=== PATIENT | male | born 1980 | race Caucasian/White ===

== ENCOUNTER 2016-08-06 20:12 | Inpatient (IN) | payer OTHER ==
[~2016-08-06] VITALS: Ht 185.4 cm; Wt 75.8 kg
[2016-08-06] VITALS (7 sets, daily range): BP systolic 91–153; BP diastolic 51–76; PULSE 46–58; RESP 17–20; TEMP 98; O2SAT 96–99
[~2016-08-06 20:12] MED LIST: ACETAMIN-HYDROcod 325-5 MG PO; RIVA15 PO; RIVA20 PO
[2016-08-06] MEDS ORDERED: SODIUM CHLOR 0.9% 1000 ML INJ 1,000 ML IV ONE (20:21)
[2016-08-06 20:33] LABS: AUTOMATED NEUTROPHIL # 11.1 TH/MM3 (1.8-7.7); BASOPHIL # 0.1 TH/MM3 (0-0.2); BASOPHIL % 0.6 % (0.0-2.0); EOSINOPHIL # 0.1 TH/MM3 (0-0.4); EOSINOPHIL % 0.8 % (0.0-4.0); HEMATOCRIT 42.6 % (39.0-51.0); HEMO FLAGS DIFF FINAL; LYMPH % 13.6 % (9.0-44.0); LYMPHOCYTE # 1.9 TH/MM3 (1.0-4.8); MEAN CELL VOLUME 83.6 FL (80.0-100.0); MEAN CORPUSCULAR HEMOGLOBIN 28.9 PG (27.0-34.0); MEAN CORPUSCULAR HGB CONC 34.5 % (32.0-36.0); MONO % 5.2 % (0.0-8.0); NEUT % 79.8 % (16.0-70.0); PLATELET COUNT 229 TH/MM3 (150-450); RED CELL DISTRIBUTION WIDTH 13.2 % (11.6-17.2); WHITE BLOOD COUNT 13.9 TH/MM3 (4.0-11.0)
[2016-08-06] MEDS ORDERED: IOHEXOL 350 MG/ML 10 ML VIAL (for RAD DIAG) IV ONE (20:36)
--- NOTE | 2016-08-06 20:36 | PD ---
HPI Chief Complaint: Stroke Alert Time Seen by Provider: 20:21 Travel History International Travel<30 days: No Contact w/Intl Traveler<30days: No Traveled to known affect area: No History of Present Illness HPI The patient is a 36 year old male who presents to the [facility] emergency department with a history of reportedly last being seen normal by his spouse at 7 AM prior to her coming to work. She reports that he drove her to work. She reports that he has been working excessive number of hours over the last 2 days and had not been sleeping except for a couple of hours over the last 48 hours. She reports that he then slept throughout all of the day according to her mom that was home briefly with him taking care of her children. The patient reported to his that he got up around 2:30 PM to go to the bathroom. He realized at that time that he had left upper and left lower extremity weakness. He fell to the floor. He has been on the ground since then. He was supposed to pick her up from work at 7 PM, however he never arrived. When she called to check on him, she noted that he had slurred speech and was asking for help. Ambulance services were called out to the patient's house, however he refused transport at that time stating to ambulance services that he was just intoxicated from drinking alcohol. The patient's then arrived home and assessed him (she is a nurse), and noted that he had left facial droop, left upper and left lower extremity weakness, and therefore she called ambulance services again as she was concerned that he had a stroke. The patient on arrival appears to be drowsy. The patient is however easily awakened and follows commands. The patient is able to provide all of his history. He denies drinking any alcohol today. The patient reports having a right-sided headache. The patient denies any recent fevers, cough congestion, neck pain, chest pain, shortness of breath, abdominal pain, vomiting, diarrhea, urinary symptoms. PFS Past Medical History Narrative Medical The patient's past medical history is significant for a DVT and pulmonary embolism last year. He was on an anticoagulant up until the end of last year. The patient receives his primary care through the [facility]. Hx Anticoagulant Therapy: Yes (XARELTO 15 MG PO BID @ 01/21/16 0900) Asthma: No Blood Disorders: No Cancer: No Cardiovascular Problems: No COPD: No Diabetes: No Endocrine: No Genitourinary: No Immune Disorder: No Neurologic: No Psychiatric: No Reproductive: No Respiratory: Yes (LUNG BIOPSY) Pneumonia: Yes Sleep Apnea: No Thyroid Disease: No Past Surgical History Narrative Surgical The patient's past surgical history is significant for right hip surgery. Joint Replacement: Yes (RIGHT HIP SURGERY) Social History Alcohol Use: Yes (occasional) Tobacco Use: Yes (1/2 PPD) Substance Use: No Allergies-Medications (Allergen,Severity, Reaction): Coded Allergies: Codeine (Verified Allergy, Intermediate, RASH, 01/21/16) Penicillin (Verified Allergy, Intermediate, RASH, 01/21/16) Reported Meds & Prescriptions Reported Meds & Active Scripts Active No Active Prescriptions or Reported Medications Review of Systems Except as stated in HPI: all other systems reviewed are Neg General / Constitutional: No: Fever Eyes: No: Visual changes HENT: Positive: Headaches, No: Rhinorrhea, Congestion, Neck Stiffness, Neck Pain Cardiovascular: No: Chest Pain or Discomfort Respiratory: No: Shortness of Breath Gastrointestinal: No: Abdominal Pain Genitourinary: No: Dysuria Musculoskeletal: No: Pain Skin: No Rash Neurologic: Positive: Weakness, Dizziness, Focal Abnormalities, Coordination Problem, Headache, Change in Mentation, Slurred Speech, Sensory Disturbance Psychiatric: No: Depression Endocrine: No: Polydipsia Hematologic/Lymphatic: No: Easy Bruising Physical Exam Narrative General: The patient is a well-developed well-nourished male in no acute distress. Head and Neck exam: Head is normocephalic atraumatic. Eyes: pupils are equal round and reactive to light. Nose: Midline septum with pink mucous membranes Mouth: Dentition is remarkable for multiple areas of decay of the lower dentition, upper prosthesis is in place. Moist mucus membranes. Posterior oropharynx is not erythematous. The patient is noted to have white patches on the soft and hard palate extending into the posterior oropharynx appears suspicious for thrush. No tonsillar hypertrophy. Uvula midline. Airway patent. Neck: No palpable lymphadenopathy. No nuchal rigidity. No thyromegaly. Cardiovascular: Regular rate and rhythm without murmurs, gallops, or rubs. Lungs: Clear to auscultation bilaterally. No wheezes, rhonchi, or rales. Abdomen: Soft, without tenderness to palpation in all 4 quadrants of the abdomen. No guarding, rebound, or rigidity. Normal bowel sounds are audible. Extremities: No clubbing, cyanosis, or edema. 2+ pulses in all 4 extremities. No calf tenderness on palpation. Back: No spinous process tenderness to palpation. No costovertebral angle tenderness to palpation. Neurologic Exam: The patient has a left-sided facial droop on examination, paralysis of the left upper and left lower extremity. The patient has diminished sensation reported in the left upper and left lower extremity. The patient has a rotatory nystagmus noted on examination. The patient has a gaze palsy on examination of the left eye specifically on lateral gaze to the left. The patient has no evidence of extinction or inattention to the left side. The patient has slightly slurred speech. The patient is however able to provide all of his history and although drowsy is easily arousable. The patient's strength is 5 over 5 in the right upper and right lower extremity. The patient is oriented to person, Lasix, time, and situation. Skin Exam: No rash noted. Intact skin that is warm and dry. Data Data Last Documented VS Vital Signs Date Time Temp Pulse Resp B/P Pulse Ox O2 Delivery O2 Flow Rate FiO2 08/06/16 22:00 96 Nasal Cannula 2.00 08/06/16 22:00 46 17 113/56 08/06/16 20:15 98.0 08/06/16 20:11 21 Orders Diet Npo (08/07/16 Breakfast) Activity Bed Rest (08/06/16 ) Electrocardiogram (08/06/16 ) I-Stat Creatinine (08/06/16 20:21) I-Stat Profile (08/06/16 20:21) Prothrombin Time / Inr (Pt) (08/06/16 20:21) Act Partial Throm Time (Ptt) (08/06/16 20:21) Complete Blood Count With Diff (08/06/16 20:21) Fibrinogen (08/06/16 20:21) Creatine Kinase (Cpk) (08/06/16 20:21) Troponin I (08/06/16 20:21) Ua Includes Microscopic (08/06/16 20:21) Drug Screen, Random Urine (08/06/16 20:21) Type And Screen (08/06/16 20:21) Ct Brain W/O Iv Contrast(Rout) (08/06/16 ) Cta Brain W Iv Contrast W 3d (08/06/16 20:21) Consult Neurology (08/06/16 ) Blood Glucose (08/06/16 20:21) Ecg Monitoring (08/06/16 20:21) Neuro Checks Q2HX12,Q4H (08/06/16 20:21) Nursing Bedside Swallow Assess .ONCE (08/06/16 20:21) Iv Access Insert/Monitor (08/06/16 20:21) NPO (08/06/16 20:21) Oximetry (08/06/16 20:21) Oxygen Administration (08/06/16 20:21) Sodium Chlor 0.9% 1000 Ml Inj (Ns 1000 M (08/06/16 20:21) Resp Oxygen Home C Titrat 1-4 L (08/06/16 20:21) Cath For Specimen (08/06/16 20:21) (Hub Use Only)Inp Phy Cons/Ref (08/06/16 ) Iohexol 350 Inj (Omnipaque 350 Inj) (08/06/16 20:36) Aspirin Supp (Aspirin Supp) (08/06/16 20:45) Cta Neck W Iv Contrast W 3d (08/06/16 ) Magnesium (Mg) (08/06/16 20:51) Mri Brain W/O Contrast (08/06/16 21:18) Alcohol (Ethanol) (08/06/16 20:12) Heparin-D5w Inj (Heparin-D5w Inj) (08/06/16 22:00) Cbc No Diff, Includes Plts (08/09/16 06:00) Act Partial Throm Time (Ptt) (08/07/16 21:59) Admit Order (Ed Use Only) (08/06/16 22:22) Labs Laboratory Tests Test 08/06/16 08/06/16 20:12 21:15 White Blood Count 13.9 TH/MM3 Red Blood Count 5.10 MIL/MM3 Hemoglobin 14.7 GM/DL Bedside Hemoglobin 15.3 G/DL Hematocrit 42.6 % Bedside Hematocrit 45.0 % Mean Corpuscular Volume 83.6 FL Mean Corpuscular Hemoglobin 28.9 PG Mean Corpuscular Hemoglobin 34.5 % Concent Red Cell Distribution Width 13.2 % Platelet Count 229 TH/MM3 Mean Platelet Volume 9.3 FL Neutrophils (%) (Auto) 79.8 % Lymphocytes (%) (Auto) 13.6 % Monocytes (%) (Auto) 5.2 % Eosinophils (%) (Auto) 0.8 % Basophils (%) (Auto) 0.6 % Neutrophils # (Auto) 11.1 TH/MM3 Lymphocytes # (Auto) 1.9 TH/MM3 Monocytes # (Auto) 0.7 TH/MM3 Eosinophils # (Auto) 0.1 TH/MM3 Basophils # (Auto) 0.1 TH/MM3 CBC Comment DIFF FINAL Differential Comment Prothrombin Time 12.0 SEC Prothromb Time International 1.1 RATIO Ratio Activated Partial 25.7 SEC Thromboplast Time Fibrinogen 230 mg/dL Bedside Sodium 143 MMOL/L Bedside Potassium 3.9 MMOL/L Bedside Chloride 105 MMOL/L Bedside Blood Urea Nitrogen 8 MG/DL Bedside Creatinine 0.8 MG/DL Bedside Glucose 106 MG/DL Magnesium Level 2.1 MG/DL Total Creatine Kinase 98 U/L Troponin I LESS THAN 0.02 NG/ML Ethyl Alcohol Level LESS THAN 3 MG/DL Blood Type A POSITIVE Antibody Screen NEGATIVE Blood Bank Comment Phosphorus Level 1.4 MG/DL Urine Color LIGHT-YELLOW Urine Turbidity CLEAR Urine pH 7.5 Urine Specific [place] 1.009 Urine Protein NEG mg/dL Urine Glucose (UA) NEG mg/dL Urine Ketones NEG mg/dL Urine Occult Blood NEG Urine Nitrite NEG Urine Bilirubin NEG Urine Urobilinogen LESS THAN 2.0 MG/DL Urine Leukocyte Esterase NEG Urine RBC LESS THAN 1 /hpf Urine WBC LESS THAN 1 /hpf Urine Squamous Epithelial <1 /hpf Cells Urine Opiates Screen NEG Urine Barbiturates Screen NEG Urine Amphetamines Screen NEG Urine Benzodiazepines Screen NEG Urine Cocaine Screen NEG Urine Cannabinoids Screen NEG MDM Medical Screen Exam Complete: Yes Emergency Medical Condition: Yes Medical Record Reviewed: Yes EKG Prior to Arrival: Yes Differential Diagnosis Ischemic stroke, versus intracranial hemorrhage, versus cervical artery dissection, versus intracranial tumor, versus brainstem tumor Narrative Course During the course of the patients emergency department visit, the patients history, examination, and differential diagnosis were reviewed with the patient. The patient had IV access obtained and blood work sent for analysis. The patient was placed on a automotive drivability technician with oximetry and blood pressure monitoring. The patient's blood sugar was reportedly prior to arrival noted to be 95 according to ambulance services. An i-STAT with creatinine was ordered. A stroke alert was called prior to arrival. The patient's i-STAT with creatinine reveals a sodium of 143, potassium 3.9, chloride 105, BUN 8, creatinine 0.8, glucose 106, hemoglobin 15.3. A CT scan of the brain without contrast, CTA of the brain, CTA of the neck has been ordered. Unfortunately, the patient arrives in the emergency department for evaluation after the acceptable timeframe for alteplase administration intravenously. In addition, the patient on arrival is present only within 5 minutes of the six-hour timeframe for endovascular thrombectomy. Therefore, if the patient is noted to have no evidence of intracranial hemorrhage, the patient will be given aspirin SC. This was discussed at length with the neurologist on-call, . Radiology studies were reviewed and remarkable for a ct scan of the brain was called to me as negative according to Dr. Islas at 8:35PM. An EKG was done which shows a sinus bradycardia rate of 47, incomplete right bundle branch block, no other acute ST segment changes, no evidence of ST segment elevation. T waves are inverted in V1. Laboratory studies otherwise revealed a white count of 13.9, hemoglobin 14.7, platelets 229 with neutrophils 79.8. Magnesium is 2.1. INR 1.1, PT 12, PTT 25.7, fibrinogen 230, urinalysis is unremarkable. Alcohol level less than 3, urine drug screen is negative. Radiologic studies were otherwise remarkable for a CTA of the brain that shows a small thrombus within the distal basilar artery measuring 7 x 4 mm otherwise unremarkable CTA. Regarding this thrombus, please see my physician communication section for details regarding physicians that I discussed this patient's case with. CTA of the neck shows a normal CTA of the carotids, no thrombus or aneurysm. There is a thrombus in the basilar artery. MRI of the brain shows that there is some very subtle restricted diffusion in the brainstem greater on the right consistent with acute infarction. The patient was given aspirin 300 mg SC. The patient was started on heparin per ischemic stroke protocol. The patients results were discussed with the patient, including the plan of care. I explained that further testing and/ or monitoring is indicated based on the patients history, examination, and/ or laboratory findings. Therefore, I recommended admission for additional evaluation. The patient expressed understanding and was agreeable with this plan. The patient was admitted to the hospital in critical condition and sent to a bed under the care of the outsole beveler. Critical Care Narrative Aggregate critical care time was 47 minutes. Time to perform other separately billable procedures was not included in the critical care time. My time did not include minutes spent treating any other patients simultaneously or on activities that did not directly contribute to the patient's treatment. The services I provided to this patient were to treat and/or prevent clinically significant deterioration that could result in: Respiratory failure, versus cardiovascular collapse, versus further progression of ischemic stroke I provided critical care services requiring my management, as noted below: Chart data review, documentation time, medication orders and management, vital sign assessments/reviewing monitor data, ordering and reviewing lab tests, ordering and interpreting/reviewing x-rays and diagnostic studies, care of the patient and discussion of the patient with the admitting physicians. Stroke Alert NIHSS NIH Stroke Scale Result: 15 NIHSS Time Completed: 20:23 Physician Communication Physician Communication I spoke to Dr. Soria, at 8:29 PM regarding this patient's case. Given the patient's onset of symptoms at approximately 2:30 PM, the patient does not meet criteria for intravenous administration of alteplase, or at this point endovascular thrombectomy as it has been 6 hours since symptom onset. He did agree with the plan to proceed with CTA of the brain and CTA of the neck. He agreed with the plan to start the patient on aspirin. He agreed with the plan for the patient to be admitted to the intensive care unit for close monitoring. At 2058 I received a call from , the radiologist on-call telling me that the patient had a 7 x 4 mm basilar artery thrombus. I then spoke to Dr. Soria at 9 PM regarding this finding. He recommended that I discuss this further with the interventional radiologist. I spoke to Dr. Knott, the interventional radiologist on-call, regarding this at 21:09. He reported that he will review the patient's images and call me back. At 21:14 he called back and reported that the patient Posterior Cerebral arteries are still patent due to collateral circulation. He reports that the case is difficult as the patient does have circulation and he is concerned that with thrombectomy he will have showering of thrombectomy particles with the procedure. He recommended an MRI without contrast to further evaluate the patient's current signs of stroke. Again, I spoke to Dr. Soria regarding this patient's case at 2124. He recommended that the patient be started on heparin. I recommended to him that he discussed the case further with the interventional radiologist to see if he also agrees with starting heparin. At [address] spoke to Dr. Soria again and he reports that Dr. Mccoy agrees with heparin be in started. He recommends that the patient be started on heparin per ischemic stroke protocol. This has been ordered. The patient's case was discussed with Dr. Christensen who did agree to admit the patient for further evaluation and treatment at this time. 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
--- NOTE | 2016-08-06 20:38 | RADRPT ---
EXAM DATE/TIME: 08/06/2016 20:21 CORRECTION Corrected on: August 06, 2016; [facility] COMPARISON: No previous studies available for comparison. INDICATIONS : Stroke alert; Left facial droop and left sided weakness. RADIATION DOSE: 39.86 CTDIvol (mGy) This report was called by Janel Potter at 8: 33 MEDICAL HISTORY : Non-responsive. SURGICAL HISTORY : Non-responsive. ENCOUNTER: Initial ACUITY: 1 day PAIN SCALE: Non-responsive LOCATION: cranial TECHNIQUE: Multiple contiguous axial images were obtained of the head. Using automated exposure control and adj ustment of the mA and/or kV according to patient size, radiation dose was kept as low as reasonably a chievable to obtain optimal diagnostic quality images. FINDINGS: CEREBRUM: The ventricles are normal for age. No evidence of midline shift, mass lesion, hemorrhage or acute in farction. No extra-axial fluid collections are seen. Minimal hyperdensity in the basilar artery. POSTERIOR FOSSA: The cerebellum and brainstem are intact. The 4th ventricle is midline. The cerebellopontine angle i s unremarkable. EXTRACRANIAL: The visualized portion of the orbits is intact. SKULL: The calvaria is intact. No evidence of skull fracture. CONCLUSION: Minimal high density in the basilar artery, otherwise unremarkable CT brain. CTA brain recommended. Elder Islas MD on August 06, 2016 at 20:28 Board Certified Radiologist. This report was verified electronically. Elder Islas MD on August 06, 2016 at 20:58 Board Certified Radiologist. This report was verified electronically.
[2016-08-06] MEDS ORDERED: ASPIRIN 300 MG SUPP RECTAL ONE (20:45)
[2016-08-06 20:52] LABS: APTT (PATIENT) 25.7 SEC (24.3-30.1); INTERNATIONAL NORMALIZED RATIO 1.1 RATIO
[2016-08-06 20:53] LABS: I-STAT POTASSIUM 3.9 MMOL/L (3.5-4.9); I-STAT SODIUM 143 MMOL/L (138-146)
[2016-08-06 20:58] LABS: CREATINE KINASE 98 U/L (39-308)
--- NOTE | 2016-08-06 20:58 | RADRPT ---
EXAM DATE/TIME: 08/06/2016 20:21 [facility] COMPARISON: No previous studies available for comparison. INDICATIONS : Stroke alert; left sided weakness. IV CONTRAST: 75 cc Omnipaque 350 (iohexol) IV ; Cumulative dose for multiple exams. RADIATION DOSE: 28.91 CTDIvol (mGy) MEDICAL HISTORY : Non-responsive. SURGICAL HISTORY : Non-responsive. ENCOUNTER: Initial ACUITY: 1 day PAIN SCALE: Non-responsive LOCATION: Bilateral cranial TECHNIQUE: Volumetric scanning was performed using a multi-row detector CT scanner. The data was post processed with a variety of visualization algorithms including full volume maximum intensity projection, multi -planar sliding thin slab reformation, curved planar reformation, and surface rendering techniques. Using automated exposure control and adjustment of the mA and/or kV according to patient size, radiat ion dose was kept as low as reasonably achievable to obtain optimal diagnostic quality images. FINDINGS: There is excellent visualization of the major intracranial arteries out to the second-order branch ve ssels. There is no evidence for aneurysm, vessel truncation or stenosis, and no evidence for vascula r malformation. Distal carotid arteries are normal in caliber. There is a thrombus in the distal basilar artery measu ring 7 x 4 mm, there is flow distally. Small anterior to indicating artery. Small posterior to meetin g arteries bilaterally. No stenosis or aneurysm within the middle, anterior or posterior cerebral art eries. CONCLUSION: 1. Small thrombus within the distal basilar artery measuring 7 x 4 mm. 2. Otherwise unremarkable CTA brain. Dr Potter notified of these findings at 8: 57pm. Elder Islas MD on August 06, 2016 at 20:49 Board Certified Radiologist. This report was verified electronically.
--- NOTE | 2016-08-06 21:03 | RADRPT ---
EXAM DATE/TIME: 08/06/2016 20:21 [facility] COMPARISON: No previous studies available for comparison. INDICATIONS : Stroke alert; left sided weakness. IV CONTRAST: 75 cc Omnipaque 350 (iohexol) IV ; Cumulative dose for multiple exams. RADIATION DOSE: 28.91 CTDIvol (mGy) ; Combined studies MEDICAL HISTORY : Non-responsive. SURGICAL HISTORY : Non-responsive. ENCOUNTER: Initial ACUITY: 1 day PAIN SCALE: Non-responsive LOCATION: neck Elevated flow velocities and ICA/CCA ratios have been found to correlate with increased degrees of vessel stenosis, calculated as percentage of diameter relative to a normal segment of distal ICA/CCA. TECHNIQUE: Volumetric scanning was performed using a multirow detector CT scanner. The data was post processed with a variety of visualization algorithms including full-volume maximum intensity projection, multip lanar sliding thin-slab reformation, curved-planar reformation, and surface-rendering techniques. Us ing automated exposure control and adjustment of the mA and/or kV according to patient size, radiatio n dose was kept as low as reasonably achievable to obtain optimal diagnostic quality images. FINDINGS: AORTIC ARCH: There is a three-vessel origin of the great vessels from the aorta. No evidence of ostial narrowing. RIGHT CAROTID: The common carotid artery is intact. The carotid bulb has a normal configuration without ulceration o r narrowing. The internal carotid artery lumen is smooth without stenosis. The external carotid marisel ry is intact. LEFT CAROTID: The common carotid artery is intact. The carotid bulb has a normal configuration without ulceration or narrowing. The internal carotid artery lumen is smooth without stenosis. The external carotid ar emerson is intact. VERTEBRALS: The vertebral arteries have a symmetric diameter. No stenotic lesions are seen. CONCLUSION: 1. Normal CTA carotid arteries. No thrombus or aneurysm. 2. There is thrombus in the basilar artery Elder Islas MD on August 06, 2016 at 21:00 Board Certified Radiologist. This report was verified electronically.
[2016-08-06 21:38] LABS: MAGNESIUM 2.1 MG/DL (1.5-2.5)
[2016-08-06 21:44] LABS: BLOOD, URINE NEG (NEG); GLUCOSE,URINE NEG (NEG); KETONE, URINE NEG (NEG); NITRITE,URINE NEG (NEG); PH, URINE 7.5 (5.0-8.5); SQUAMOUS EPITHELIAL CELL URINE <1 /hpf (0-5); URINE COLOR LIGHT-YELLOW (YELLW/STRAW)
[2016-08-06 21:51] LABS: AMPHETAMINE, URINE NEG (NEG); BARBITURATES, URINE NEG (NEG); COCAINE, URINE NEG (NEG)
--- NOTE | 2016-08-06 22:19 | RADRPT ---
EXAM DATE/TIME: 08/06/2016 21:47 [facility] COMPARISON: No previous studies available for comparison. INDICATIONS : Stroke. MEDICAL HISTORY : Prior blood clots. SURGICAL HISTORY : Left hip surgery. ENCOUNTER: Initial ACUITY: 1 day PAIN SCORE: Nonresponsive. LOCATION: Bilateral cranial TECHNIQUE: Multiplanar, multisequence MRI of the brain was performed without contrast. FINDINGS: CEREBRUM: The ventricles are normal for age. No evidence of midline shift, mass lesion or hemorrhage. No extr aaxial fluid collections are seen. The pituitary gland and suprasellar cistern are normal in configu ration. WHITE MATTER: No significant signal abnormalities are seen in the white matter. POSTERIOR FOSSA: The cerebellum and brainstem are intact. The 4th ventricle is midline. The cerebellopontine angle is unremarkable. The cerebellar tonsils are normal in position. DIFFUSION IMAGING: Minimal subtle right brain stem restricted diffusion is seen. There also appears to be minimal restr icted diffusion bilaterally in the posterior lópez. EXTRACRANIAL: The visualized portions of the orbits and paranasal sinuses are unremarkable. CONCLUSION: 1. There is some very subtle restricted diffusion in the brainstem greater on the right consistent wi th acute infarction. 2. Otherwise unremarkable MRI of the brain. Elder Islas MD on August 06, 2016 at 22:10 Board Certified Radiologist. This report was verified electronically.
[2016-08-06] MEDS: HEPARIN-D5W INJ 250 ML IV SCH (22:34)
--- NOTE | 2016-08-06 23:21 | HHI.HP ---
HPI Service Critical Care Medicine Primary Care Physician [facility] Admission Diagnosis Basilar artery Thrombus with ischemic stroke Diagnosis: Travel History International Travel<30 Days: No Contact w/Intl Traveler <30 Da: No Traveled to Known Affected Are: No History of Present Illness 36 yo WM who presents to [facility] ED with acute ischemic stroke. 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 Patient states he got up at around 14:30 on 08/06 to go to the bathroom and he fell and could not get up. He began texting his while she was at work and the texts were unusual. . So she called [facility] and they went to his home and he had slurred speech and reportedly refused transport. He then communicated to his "something is wrong, I need help". She arrived at his home and he was on the ground with L facial droop and L hemiparesis. [facility] was summoned again and he was taken to [facility] where he was found to be drowsy but able to follow commands. He had nystagmus and L hemiplegia. He complained of right sided headache. CT brain demonstrated basilar artery hyperdensity. CTA demonstrated thrombus within the distal basilar artery. Dr. Potter in ED discussed with Dr. Soria on several occasions. Patient was felt to not be a candidate for systemic thrombolytic due to onset of symptoms. Case was discussed with Dr. Mccoy with interventional radiology who deferred intervention as patient was felt to have collateral flow and there was concern for intervention resulting in distal showering of thrombus that might compromise this collateral circulation. MRI was also obtained which demonstrated restricted diffusion in the brainstem, greater on the right consistent with acute infarction. Dr. Soria and Dr. Mccoy agreed with initiation of heparin drip per ischemic stroke protocol which has been initiated. Patients indicates his neuro exam appears to be improving since arrival, i.e he is able to move his L arm and L leg some. His BP is 91/51 with heart rate sinus arrhythmia in 40s. I am placing CVL and initiating Levophed to target SBP 165-[address] Soria. Patient has had no witnessed seizure activity. Patient h/o unprovoked PE in 01/2016 and underwent hypercoagulable workup at that time that was negative (APL ab, Factor V Leiden, Mixing study, Protein C/S , Antithrombin III, JAK2, prothrombin gene mutation). He was on Xarelto for several months afterwards but did not quite complete full 6 months of recommended anticoagulant therapy. His mother indicated he may have h/o septal defect but it is unclear when this was diagnosed. TTE at this facility did not suggest and he has not had RIGOBERTO at this facility. He was hospitalized in ICU in [facility] 2 years ago for respiratory symptoms. Past Family Social History Allergies: Coded Allergies: Codeine (Verified Allergy, Intermediate, RASH, 01/21/16) Penicillin (Verified Allergy, Intermediate, RASH, 01/21/16) Past Medical History DVT and PE 01/2016 (unprovoked) He was hospitalized in ICU in [place] for 1 week ~ 2 years ago due to respiratory illness Past Surgical History Right hip femoral neck ORIF Lung biopsy ~ 2 years ago Reported Medications None Family History His father is currently living but had a myocardial infarction at age 39. There have been other individuals on his father's side (uncles) who have had myocardial infarctions in their 30s/40s. Social History He smokes half a pack of cigarettes per day for "many years" Drink alcohol very rarely Does not use illicit drugs except for marijuana 1 time about a week ago. Urine drug screen was negative He works clearing land and operating heavy equipment Physical Exam Vital Signs Vital Signs Date Time Temp Pulse Resp B/P Pulse Ox O2 Delivery O2 Flow Rate FiO2 08/06/16 20:49 49 20 123/59 98 Nasal Cannula 2 08/06/16 20:49 99 08/06/16 20:49 98 Nasal Cannula 2 08/06/16 20:34 98 Nasal Cannula 2 08/06/16 20:31 20 08/06/16 20:15 98.0 50 20 153/76 98 08/06/16 20:11 96 21 Physical Exam Temp 98.0 pulse in 50s and sinus arrhythmia on the monitor blood pressure 91/51 sats 100% on 2 L nasal cannula GENERAL: Well-nourished, well-developed patient who is laying in the ED gurney. SKIN: Warm and dry. Intertriginous region of groin has salmon colored slightly raised patches with borders c/w tinea cruris. HEAD: Atraumatic. Normocephalic. EYES: Pupils equal and round 4mm and reactive to 2 mm bilaterally. L eye ptosis. EOM as per below. No scleral icterus. No injection or drainage. ENT: No nasal bleeding or discharge. Mucous membranes pink and moist. NECK: Trachea midline. No JVD. CARDIOVASCULAR: irregular, sinus arrhythmia on monitor. No murmurs rubs or gallops. RESPIRATORY: Breathing comfortably with no accessory muscle use. Clear to auscultation bilaterally. On 2 L nasal cannula sats 100%. GASTROINTESTINAL: Abdomen soft, some bladder distension and tenderness. Bowel sounds present. MUSCULOSKELETAL: Extremities without clubbing, cyanosis, or edema. NEUROLOGICAL: Awakens to voice. Slurred dysarthric speech. At times not completely cooperative with exam. Pupils reactive. Horizontal nystagmus noted. L eye ptosis.L facial droop in peripheral nerve distribution. Tongue deviates to left. L eye upward gaze palsy. Absent adduction right eye. Strength 5/5 RUE and RLE. Strength 4-/5 biceps/triceps LUE. Strength 4-/5 L foot plantar and dorsiflexion. Strength 3/5 L hip flexor. He reports intact sensation to soft touch but c/o parasthesia RUE and RLE. Laboratory Laboratory Tests Test 08/06/16 08/06/16 20:12 21:15 White Blood Count 13.9 Red Blood Count 5.10 Hemoglobin 14.7 Bedside Hemoglobin 15.3 Hematocrit 42.6 Bedside Hematocrit 45.0 Mean Corpuscular Volume 83.6 Mean Corpuscular Hemoglobin 28.9 Mean Corpuscular Hemoglobin 34.5 Concent Red Cell Distribution Width 13.2 Platelet Count 229 Mean Platelet Volume 9.3 Neutrophils (%) (Auto) 79.8 Lymphocytes (%) (Auto) 13.6 Monocytes (%) (Auto) 5.2 Eosinophils (%) (Auto) 0.8 Basophils (%) (Auto) 0.6 Neutrophils # (Auto) 11.1 Lymphocytes # (Auto) 1.9 Monocytes # (Auto) 0.7 Eosinophils # (Auto) 0.1 Basophils # (Auto) 0.1 CBC Comment DIFF FINAL Differential Comment Prothrombin Time 12.0 Prothromb Time International 1.1 Ratio Activated Partial 25.7 Thromboplast Time Fibrinogen 230 Bedside Sodium 143 Bedside Potassium 3.9 Bedside Chloride 105 Bedside Blood Urea Nitrogen 8 Bedside Creatinine 0.8 Bedside Glucose 106 Magnesium Level 2.1 Total Creatine Kinase 98 Troponin I LESS THAN 0.02 Ethyl Alcohol Level LESS THAN 3 Blood Type A POSITIVE Antibody Screen NEGATIVE Blood Bank Comment Urine Color LIGHT-YELLOW Urine Turbidity CLEAR Urine pH 7.5 Urine Specific [place] 1.009 Urine Protein NEG Urine Glucose (UA) NEG Urine Ketones NEG Urine Occult Blood NEG Urine Nitrite NEG Urine Bilirubin NEG Urine Urobilinogen LESS THAN 2.0 Urine Leukocyte Esterase NEG Urine RBC LESS THAN 1 Urine WBC LESS THAN 1 Urine Squamous Epithelial <1 Cells Urine Opiates Screen NEG Urine Barbiturates Screen NEG Urine Amphetamines Screen NEG Urine Benzodiazepines Screen NEG Urine Cocaine Screen NEG Urine Cannabinoids Screen NEG Result Diagram: 08/06/162011 Assessment and Plan Assessment and Plan NEURO: Acute basilar artery thrombosis with acute ischemic brainstem stroke Systemic TPA not administered per neurology due to time of onset of symptoms. Dr. Mccoy consulted and deferred intervention at this time due to presence of collateral flow and concern for causing embolization and compromise of collateral flow Heparin drip per ischemic stroke protocol Maintain normothermia, Ofirmev if needed for temp >100.4 Avoid hypoglycemia/hypoxemia Neurocheck q1 hour in ISC Target SBP 165-180 with levophed. Neurology following, Dr. Soria 2D Echo, Lipid profile, hgb A1C pending. ?h/o septal defect and clinical concern for this due to recent PE and now acute ischemic stroke. Consider cardiology consult and RIGOBERTO after stabilized from acute stroke. PT consult/OT/ST consults. RESP: NC wean as tolerated. Monitor for airway protection, at high risk for decompensation due to bulbar palsies. CV: Art line placed for hemodynamic monitoring. 0.9 NaCl @ 100 mL/hr. Levophed target SBP 165-180 GI: Nothing by mouth. Speech therapy consult to evaluate swallow. FEN/RENAL: Hypophosphatemia Urinary retention CK is normal. Bobby inserted for urinary retention and >1 L output Monitor intake and output. Monitor electrolytes. Replace phosphorus per ICU electrolyte replacement protocol. ID: Tinea cruris Thrush Clotrimazole 1% bid x21 days to groin Nystatin for thrush. HEME: No acute hematologic issues. Prior hypercoagulable workup was negative in January 2016 ENDO: Euglycemic PROPH: On heparin drip which will provide DVT prophylaxis. Protonix 40 mg IV daily for stress ulcer prophylaxis. ACCESS: Right central venous line placed 08/06/16, left radial art line 08/07/16 Patient and updated at bedside. is ED RN at [facility]. Discussed with Dr. Potter and ED RN. Discussed with Dr. Soria regarding placement of CVL and target BP. Discussed with ISC charge and ISC RN. CCT 60 minutes exclusive of separately billable procedures. Claudine Christensen MD Aug 06, 2016 23:21
[2016-08-06] MEDS ORDERED: TERBUTALINE INJ 1 MG/ML AMP SQ PRN (23:30)
[2016-08-07] VITALS (12 sets, daily range): BP systolic 106–167; BP diastolic 59–78; PULSE 42–58; RESP 19–25; TEMP 98.6–99.3; O2SAT 98–99
[2016-08-07] MEDS ORDERED: MISCELLANEOUS NURSING INFORMATION XX SCH (00:15)
[2016-08-07] MEDS ORDERED: ONDANSETRON HCL 4 MG/2 ML VIAL IV PRN (00:15)
[2016-08-07] MEDS ORDERED: POTASSIUM PHOSPHATE MONOBASIC 500 MG TAB PO/TUBE PRN (00:15)
[2016-08-07] MEDS ORDERED: SODIUM CHLOR 0.9% 1000 ML INJ 1,000 ML IV ONE (00:15)
[2016-08-07] MEDS ORDERED: POTASSIUM CHLOR 20 MEQ PREMIX 100 ML IV PRN ×2 (00:15)
[2016-08-07] MEDS ORDERED: CHLORHEXIDINE GLUCONATE 2 % 1 PACK (2 CLOTHS) TOP PRN (00:15)
[2016-08-07] MEDS ORDERED: SODIUM PHOSPHATE INJ 30 MMOL in SODIUM CHLOR 0.9% 250 ML INJ 240 ML IV PRN (00:15)
[2016-08-07] MEDS ORDERED: POTASSIUM CHLOR 40 MEQ PREMIX 100 ML IV PRN (00:15)
[2016-08-07] MEDS ORDERED: RESP: ALBUTEROL 2.5 MG/3 ML NEB (PRN) INH (00:15)
[2016-08-07] MEDS ORDERED: POTASSIUM PHOSPHATE MONOBASIC 500 MG TAB PO PRN (00:15)
[2016-08-07] MEDS ORDERED: POTASSIUM PHOSPHATE INJ 30 MMOL in SODIUM CHLOR 0.9% 250 ML INJ 250 ML IV PRN (00:15)
[2016-08-07] MEDS ORDERED: MAGNESIUM SULFATE INJ 2 GM in SODIUM CHLORIDE 0.9% INJ 96 ML IV PRN (00:15)
[2016-08-07] MEDS ORDERED: MAGNESIUM SULFATE INJ 4 GM in SODIUM CHLORIDE 0.9% INJ 92 ML IV PRN (00:15)
[2016-08-07] MEDS ORDERED: SODIUM CHLORIDE 0.9% FLUSH 5 ML FLUSH IV FLUSH PRN (00:15)
[2016-08-07] MEDS ORDERED: MAGNESIUM OXIDE 400 MG TAB PO PRN (00:15)
[2016-08-07] MEDS: SODIUM CHLOR 0.9% 1000 ML INJ 1,000 ML IV SCH ×3 (00:25→20:04)
--- NOTE | 2016-08-07 00:51 | PD.PROCEDR ---
Procedure Note Procedure DATE: 08/07/16 CENTRAL LINE PLACEMENT: Right internal jugular vein. Ultrasound-guided INDICATION: Central venous access CONSENT Informed consent for procedure was obtained after discussion of risks, benefits , alternatives with patient and his . Signed consent is on the chart. Patient also verbally consented. DESCRIPTION OF THE PROCEDURE The patient was placed in supine position, mild Trendelenburg The skin was cleansed with Chloraprep x4. Additional barrier precautions included large sterile drape, sterile gloves, sterile gown, face mask, and hat. 1 % lidocaine was used for local anesthesia. Under direct ultrasound guidance and on single attempt, the vein was accessed with an introducer needle. The guide wire was advanced and the tract was dilated. Using Seldinger technique a 7 [place] 20 cm antimicrobial coated triple-lumen catheter was advanced to a depth of 18] centimeters. The guide wire was removed. All ports had good return of dark venous blood and flushed easily with saline. The central line was secured with 2.0 silk. A sterile dressing with antibiotic disc was applied. ESTIMATED BLOOD LOSS: Minimal COMPLICATIONS: No apparent complications. STAT chest x-ray is pending Claudine Christensen MD Aug 07, 2016 00:51
--- NOTE | 2016-08-07 01:16 | RADRPT ---
EXAM DATE/TIME: 08/07/2016 00:52 [place] COMPARISON: No previous studies available for comparison. INDICATIONS : Central line placement. MEDICAL HISTORY : None. SURGICAL HISTORY : None. ENCOUNTER: Initial ACUITY: 1 day PAIN SCORE: Non-responsive. LOCATION: Bilateral chest FINDINGS: A single view of the chest demonstrates the lungs to be symmetrically aerated without evidence of mas s, infiltrate or effusion. The cardiomediastinal contours are unremarkable. Osseous structures are intact. Right jugular line is noted in the distal tip overlies the expected location of the SVC. CONCLUSION: Right jugular line placement. Frederic Kaplan MD on August 07, 2016 at 1:14 Board Certified Radiologist. This report was verified electronically.
[2016-08-07] MEDS: NOREPINEPHRINE INJ 4 MG in SODIUM CHLOR 0.9% 250 ML INJ 246 ML IV SCH ×6 (01:59→21:04)
[2016-08-07] MEDS ORDERED: LIDOCAINE 2%/EPINEPHrine 1:100,000 30ML MDV ONE (02:52)
[2016-08-07] MEDS ORDERED: LIDOCAINE 2%/EPINEPHrine PF 1:200,000 20ML SDV INFIL ONE (03:00)
[2016-08-07] MEDS: CHLORHEXIDINE GLUCONATE 2 % 1 PACK (2 CLOTHS) TOP SCH (03:31)
--- NOTE | 2016-08-07 04:36 | PD.PROCEDR ---
Procedure Note Procedure DATE: 08/07/69 PROCEDURE: Left radial arterial catheter placement INDICATION: Hemodynamic monitoring following acute ischemic stroke DETAILS OF PROCEDURE The patient was placed in supine position. The skin was cleansed with Chloraprep. Additional barrier precautions included large sterile drape, sterile gloves, sterile gown, face mask, and hat. 1% lidocaine was used for local anesthesia. Under direct ultrasound guidance and on the third attempt, the artery was accessed with Arrow radial artery catheterization kit. The guide wire was advanced. Using Seldinger technique 20 gauge arterial catheter was placed and the guidewire and needle apparatus was removed.. The catheter was connected to a transducer line and flushed with saline. The video monitor displayed normal arterial wave forms. The catheter was secured with 2-0 silk. A sterile dressing with antibiotic disc was applied. ESTIMATED BLOOD LOSS: minimal COMPLICATIONS: None Claudine Christensen MD Aug 07, 2016 04:36
[2016-08-07 05:22] LABS: APTT (PATIENT) 28.7 SEC (24.3-30.1)
--- NOTE | 2016-08-07 06:15 | MB ---
cc: CRISTOFER HE DATE OF CONSULTATION 08/06/2016 REASON FOR CONSULTATION Stroke Alert. HISTORY OF PRESENT ILLNESS Mr. Sales is a 36-year-old male who presented to the [facility] Emergency Department was as a Stroke Alert. The patient was last seen normal by his spouse who is a nurse at 07:00 a.m. prior to coming to work. She reports he drover to work and she reports that he has been working long hours over the last few days with not much sleep. The patient is lethargic and sleepy, hence the history and the medical information is obtained from the medical records, who is at the bedside and the emergency room doctor. The patient woke up around 2:30 to go to the bathroom. He felt that his left upper and lower extremity were weak and fell to the floor. The was concerned because he was supposed to pick her up from work. She texted him several times and he texted her back with some unintelligible texts with repeated letters and she showed me this on her I-phone. When she called to check on him, she noticed that he had slurred speech and asking for help. The assessed him and found that he had a left facial droop, left upper and lower extremity weakness. She called the ambulance. Upon arrival to the emergency room, he was drowsy, lethargic but, however, he was awakened and he follows commands. The patient has past medical history of DVT and pulmonary embolism. He was on Xarelto but he admits to stopping Xarelto 2 months ago on his own. There is no family history of vascular disorder or coagulopathy or bleeding disorder. REVIEW OF SYSTEMS A 12-point review of systems is negative except for what is stated in the HPI. PAST MEDICAL HISTORY 1. Pulmonary embolism. 2. DVT on Xarelto 15 mg twice daily. PAST SURGICAL HISTORY Right hip surgery. SOCIAL HISTORY Alcohol use occasional. Half pack tobacco. Denies illicit drug abuse. FAMILY HISTORY Noncontributory. ALLERGIES CODEINE. PENICILLIN. PHYSICAL EXAMINATION GENERAL: The patient is lethargic, drowsy, sleepy but arousable, in mild distress with slurred speech. HEENT: Atraumatic, normocephalic. Intact vision. Intact hearing. NECK: No signs of meningeal irritation. No carotid bruits. CARDIOVASCULAR: Regular rate and rhythm without any murmurs. LUNGS: Clear to auscultation. No wheezes. EXTREMITIES: No clubbing, no cyanosis. Left-sided weakness and upper and lower extremity. NEUROLOGIC: The patient is awake, alert, oriented to time, person and place. Slurred speech. No dysphagia. Internuclear ophthalmoplegia with nystagmus to the right and external ophthalmoplegia of the left, with dysarthria and tongue deviation. Of note, there is mild thrush on examination of the time. Left-sided upper and lower extremity shoulder abduction on the left side is 3/5, elbow extension 3/5, wrist extension 3/5, biceps 4-/5, left hip flexion 3/5, foot extension 3-/5. Right upper and lower extremity 5/5. Intact [id number] on the right upper extremity. Intact sensation bilateral and symmetrical. DIAGNOSTIC IMAGING - Head CT scan reveals minimal high density in the basilar artery, otherwise unremarkable. - Head CTA revealed small thrombus within the distal basilar artery measuring 7 x 4-mm. -Neck CTA with contrast revealed normal carotid arteries. No thrombus or arteries. There is thrombus in the basilar artery. - Brain MRI without contrast revealed some very subtle restricted diffusion in the brain stem greater on the right consistent with acute infarction. DIAGNOSTIC IMPRESSION 1. 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 2. Possible hypercoagulable state given the past medical history of pulmonary embolism and DVT and was on anticoagulation/Xarelto. 3. I explained the findings and I showed the the images of the brain and explained to the plan that was agreed upon by myself, interventional radiologist, Dr. Mccoy, that the patient is not a candidate for IV t-PA given being outside the therapeutic window and Interventional Radiology would not operate on this patient, hence the decision. PLAN 1. Admit to the Neuro ICU. 2. Neuro checks q. 1 hours. 3. Telemetry. 4. IV heparin perfusion. 5. Allow permissive hypertension. Treated for blood pressure greater than 220/110. I received a call from the acid crane operator about hypotension and bradycardia. We agreed to start the patient on pressors and to keep his blood pressure in the range of 150-160/80-85. 6. Hypercoagulable work up Thank you for the opportunity to participate in the care of your patient. MD LA Ramsey/BENSON /11:53 PM /5:52 AM [facility]
--- NOTE | 2016-08-07 07:26 | HHI.CCPN ---
Subjective Remarks/Hospital Course Hospital Course: 36 yo WM who [place] [facility] with acute ischemic stroke. 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 Patient states he got up at around 14:30 on 08/06 to go to the bathroom and he fell and could not get up. He began texting his while she was at work and the texts were unusual. . So she called [facility] and they went to his home and he had slurred speech and reportedly refused transport. He then communicated to his "something is wrong, I need help". She arrived at his home and he was on the ground with L facial droop and L hemiparesis. [facility] was summoned again and he was taken to [facility] where he was found to be drowsy but able to follow commands. He had nystagmus and L hemiplegia. He complained of right sided headache. CT brain demonstrated basilar artery hyperdensity. CTA demonstrated thrombus within the distal basilar artery. Dr. Potter in ED discussed with Dr. Soria on several occasions. Patient was felt to not be a candidate for systemic thrombolytic due to onset of symptoms. Case was discussed with Dr. Mccoy with interventional radiology who deferred intervention as patient was felt to have collateral flow and there was concern for intervention resulting in distal showering of thrombus that might compromise this collateral circulation. MRI was also obtained which demonstrated restricted diffusion in the brainstem, greater on the right consistent with acute infarction. Dr. Soria and Dr. Mccoy agreed with initiation of heparin drip per ischemic stroke protocol which has been initiated. Patients indicates his neuro exam appears to be improving since arrival, i.e he is able to move his L arm and L leg some. His BP is 91/51 with heart rate sinus arrhythmia in 40s. I am placing CVL and initiating Levophed to target SBP 165-[address] Soria. Patient has had no witnessed seizure activity. Patient h/o unprovoked PE in 01/2016 and underwent hypercoagulable workup at that time that was negative (APL ab, Factor V Leiden, Mixing study, Protein C/S , Antithrombin III, JAK2, prothrombin gene mutation). He was on Xarelto for several months afterwards but did not quite complete full 6 months of recommended anticoagulant therapy. His mother indicated he may have h/o septal defect but it is unclear when this was diagnosed. TTE at this facility did not suggest and he has not had RIGOBERTO at this facility. He was hospitalized in ICU in [facility] 2 years ago for respiratory symptoms. Subjective: 08/07: no significant clinical change. slightly more movement of his left upper and lower extremities. awakens to voice. answers simple questions. still persistently somnolent. on levophed at 17mcg/min to achieve goal SBP 165 - 180. persistently bradycardic in the 40s. Objective Vital Signs Date Time Temp Pulse Resp B/P Pulse Ox O2 Delivery O2 Flow Rate FiO2 08/07/16 04:00 98.6 44 22 167/70 99 08/07/16 02:05 Room Air 2 08/06/16 20:11 21 Intake and Output 08/06/16 08/06/16 08/07/16 08:00 16:00 00:00 Output Total 300 ml Balance -300 ml Result Diagram: 08/06/162011 Objective Remarks GENERAL: Well-nourished, well-developed patient lying in bed, somnolent. HEAD: Atraumatic. Normocephalic. EYES: Pupils equal and round 4mm and reactive. L eye ptosis. No scleral icterus. No injection or drainage. ENT: No nasal bleeding or discharge. Mucous membranes pink and moist. NECK: Trachea midline. No JVD. CARDIOVASCULAR: sinus bradyacrdia per telemetry. No appreciable murmurs. sbp 170 on my exam with norepinephrine @ 17 mcg/min. RESPIRATORY: Breathing comfortably with no accessory muscle use. Clear to auscultation bilaterally. On 2 L nasal cannula sats 100%. GASTROINTESTINAL: Abdomen soft, nontender, nondistended. no guarding. MUSCULOSKELETAL: Extremities without clubbing, cyanosis, or edema. NEUROLOGICAL: Awakens to voice. Slurred dysarthric speech. At times not completely cooperative with exam. Pupils reactive. Strength 5/5 RUE and RLE. Strength 4-/5 biceps/triceps LUE. Strength 4-/5 L foot plantar and dorsiflexion. Strength 3/5 L hip flexor. A/P Assessment and Plan Assessment: 36yM with history of prior pulmonary embolism and now basilar artery thrombus with ischemic CVA. He remains critically ill at this time on high-dose vasopressor support to maintain adequate cerebral perfusion pressure in the setting of a life-threatening cerebral ischemic event. We will continue to press him to maintain perfusion to the penumbra. Continue anticoagulation with heparin drip. Frequent neuro checks. If his mentation declines, will require intubation for airway protection. 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 Dr. Mccoy consulted and deferred intervention at this time due to presence of collateral flow and concern for causing embolization and compromise of collateral flow Heparin drip per ischemic stroke protocol Maintain normothermia, Ofirmev if needed for temp >100.4 Avoid hypoglycemia/hypoxemia Neurocheck q1 hour in ISC Target SBP 165-180 with levophed. Neurology following, Dr. Soria f/u 2D Echo, Lipid profile, hgb A1C ?h/o septal defect and clinical concern for this due to recent PE and now acute ischemic stroke. will f/u TTE with bubble study, and may require RIGOBERTO. PT consult/OT/ST consults. RESP: NC wean as tolerated. Monitor for airway protection, at high risk for decompensation due to bulbar palsies. CV: Art line placed for hemodynamic monitoring. 0.9 NaCl @ 100 mL/hr. Levophed target SBP 165-180 GI: Nothing by mouth. Speech therapy consult to evaluate swallow. Likely require DHT and tube feeds if dysphagic. FEN/RENAL: Hypophosphatemia Urinary retention CK is normal. Bobby inserted for urinary retention and >1 L output Monitor intake and output. Monitor electrolytes. Replace phosphorus per ICU electrolyte replacement protocol. ID: Tinea cruris Thrush Clotrimazole 1% bid x21 days to groin Nystatin for thrush. HEME: No acute hematologic issues. Prior hypercoagulable workup was negative in January 2016. Continue heparin drip. Will require life-long anticoagulation. ENDO: Euglycemic PROPH: On heparin drip which will provide DVT prophylaxis. Protonix 40 mg IV daily for stress ulcer prophylaxis. ACCESS: Right central venous line placed 08/06/16, left radial art line 08/07/16 Dispo: Remain in the ISC. He remains critically ill with high likelihood of decompensation after life-threatening basilar artery brainstem stroke. This patient remains critically ill with one or more organ systems which are or may become a threat to life. I have spent in excess of 32 minutes discontinuously in the care and management of this patient. This time is exclusive of procedures, and includes, but is not limited to, evaluation of the patient, review of the medical record, discussions with family, consultants, nursing staff, or respiratory therapy, and documentation in the medical record. Dom Morales MD Aug 07, 2016 07:26
[2016-08-07 08:38] LABS: HDL CHOLESTEROL 47.1 MG/DL (40.0-60.0); LDL CHOLESTEROL 48 MG/DL (0-99)
[2016-08-07] MEDS: SODIUM CHLORIDE 0.9% FLUSH 5 ML FLUSH IV FLUSH SCH ×2 (08:56→21:00)
[2016-08-07] MEDS: NYSTATIN SUSP 500,000 U/5 ML CUP SWAB SCH ×4 (09:16→21:53)
[2016-08-07] MEDS: CLOTRIMAZOLE 1% CREAM 15 GM TOPICAL SCH ×2 (09:16→21:00)
[2016-08-07] MEDS: PANTOPRAZOLE SODIUM 40 MG VIAL IV SCH (09:17)
[2016-08-07 10:47] LABS: HEMOGLOBIN A1a 1.1 %; HEMOGLOBIN A1b 1.6 %; HEMOGLOBIN Ao 85.6 %; HEMOGLOBIN LA1C 2.2 %; HEMOGLOBIN P3 3.4 %
[2016-08-07 10:52] LABS: APTT (PATIENT) 30.6 SEC (24.3-30.1)
--- NOTE | 2016-08-07 13:37 | HHI.PR ---
Review/Management Diagnosis 1. 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 2. Possible hypercoagulable state given the past medical history of pulmonary embolism and DVT and was on anticoagulation/Xarelto. 3. H/o pulmonary and DVT, d/c anticoagulation two months ago on his own decision Plan 1. Monitoring in Neuro ICU. 2. Neuro checks q. 1 hours. 3. Telemetry. 4. IV heparin perfusion. 5. Allow permissive hypertension. Treat for blood pressure greater than 220/ 110 for the next 24 hours 6. Hypercoagulable work up Diagnosis/Plan: Daily Summary I revisited the patient in the afternoon, with no change in status, stable, discussed with Dr. Smith, and plan to consult hemoatology for thorough hypercoagulable work up, recommendations are appreciated. ECHO no evidence of PFO or cardiac clot. Subjective Subjective Comments Patient is sleepy, however who is at bed side states that speech has improved On Heparin infusion Active Medications Current Medications Medications (Trade) Dose Ordered Sig/Danny Route Start Time Stop Time Status Last Admin Heparin Sodium/ Dextrose 250 ml @ 0 mls/hr TITRATE IV 08/06/16 22:00 08/06/16 22:34 (Levophed Inj/NS 250 ml Inj) 250 ml @ 0 mls/hr TITRATE IV 08/06/16 23:30 08/07/16 10:59 Terbutaline Sulfate 1 mg 1 mg UNSCH PRN SQ 08/06/16 23:30 Potassium Chloride 100 ml @ 50 mls/hr Q2H PRN IV 08/07/16 00:15 Potassium Chloride 100 ml @ 50 mls/hr Q2H PRN IV 08/07/16 00:15 Potassium Chloride 100 ml @ 25 mls/hr UNSCH PRN IV 08/07/16 00:15 Potassium Chloride 100 ml @ 50 mls/hr Q2H PRN IV 08/07/16 00:15 (Magnesium Sulfate Inj/NS Inj) 100 ml @ 50 mls/hr UNSCH PRN IV 08/07/16 00:15 Magnesium Oxide 800 mg 800 mg UNSCH PRN PO 08/07/16 00:15 (Magnesium Sulfate Inj/NS Inj) 100 ml @ 50 mls/hr UNSCH PRN IV 08/07/16 00:15 Potassium Phosphate 2000 mg 2,000 mg Q4H PRN PO 08/07/16 00:15 (Sodium Phosphate Inj/NS 250 ml Inj) 250 ml @ 42 mls/hr UNSCH PRN IV 08/07/16 00:15 08/07/16 05:37 Potassium Phosphate 2000 mg 2,000 mg UNSCH PRN PO/TUBE 08/07/16 00:15 Potassium Phosphate 30 mmol/ Sodium Chloride 260 ml @ 42 mls/hr UNSCH PRN IV 08/07/16 00:15 (NS 1000 ml Inj) 1,000 ml @ 100 mls/hr Q10H IV 08/07/16 00:04 08/07/16 08:54 (NS Flush) 2 ml UNSCH PRN IV FLUSH 08/07/16 00:15 (NS Flush) 2 ml BID IV FLUSH 08/07/16 09:00 08/07/16 08:56 (Protonix Inj) 40 mg DAILY IV 08/07/16 09:00 08/07/16 09:17 (Zofran Inj) 4 mg Q6H PRN IV 08/07/16 00:15 Miscellaneous Information 1 Q361D XX 08/07/16 00:15 (Chlorhexidine 2% Cloth) 3 pack Taper DAILY@04 TOP 08/07/16 04:00 08/03/17 03:59 08/07/16 03:31 (Chlorhexidine 2% Cloth) 3 pack UNSCH PRN TOP 08/07/16 00:15 (Ofirmev Inj) 1,000 mg Q6H PRN IV 08/07/16 00:15 (fentaNYL INJ) 25 mcg Q1H PRN IV PUSH 08/07/16 00:15 (fentaNYL INJ) 50 mcg Q1H PRN IV PUSH 08/07/16 00:15 (Lotrimin 1% Cream) 1 applic Q12HR TOPICAL 08/07/16 09:00 08/28/16 08:59 08/07/16 09:16 (Mycostatin Liq) 5 ml QID SWAB 08/07/16 09:00 08/07/16 09:16 Allergies Allergies Coded Allergies Codeine (Verified Allergy, Intermediate, RASH, 01/21/16) Penicillin (Verified Allergy, Intermediate, RASH, 01/21/16) Exam I&O / VS 08/06/16 08/06/16 08/07/16 15:00 23:00 07:00 Intake Total 1053 ml Output Total 300 ml 2250 ml Balance -300 ml -1197 ml Intake IV Total 1053 ml Output Urine Total 300 ml 2250 ml # Voids 1 Vital Signs Date Time Temp Pulse Resp B/P Pulse Ox O2 Delivery O2 Flow Rate FiO2 08/07/16 08:34 99 21 08/07/16 04:00 98.6 44 22 167/70 99 08/07/16 02:05 58 22 153/78 98 Room Air 2 08/07/16 01:00 55 22 108/62 98 Room Air 08/07/16 00:00 98.6 54 22 106/59 98 Nasal Cannula 2 08/06/16 23:00 58 17 91/51 97 Nasal Cannula 2 08/06/16 22:00 96 Nasal Cannula 2.00 08/06/16 22:00 46 17 113/56 99 Nasal Cannula 2 08/06/16 21:00 46 17 123/58 99 Nasal Cannula 2 08/06/16 20:49 49 20 123/59 98 Nasal Cannula 2 08/06/16 20:49 99 08/06/16 20:49 98 Nasal Cannula 2 08/06/16 20:34 98 Nasal Cannula 2 08/06/16 20:31 20 08/06/16 20:15 98.0 50 20 153/76 98 08/06/16 20:11 96 21 Exam Comments GENERAL: The patient is less lethargic compared to yesterday's exam at the ER, arousable, in mild distress with slurred speech. HEENT: Atraumatic, normocephalic. Intact vision. Intact hearing. NECK: No signs of meningeal irritation. No carotid bruits. CARDIOVASCULAR: Regular rate and rhythm without any murmurs. LUNGS: Clear to auscultation. No wheezes. EXTREMITIES: No clubbing, no cyanosis. Left-sided weakness and upper and lower extremity. NEUROLOGIC: The patient is awake, alert, oriented to time, person and place. Slurred speech. No dysphagia. Internuclear ophthalmoplegia with nystagmus to the right and external ophthalmoplegia of the left, with dysarthria and tongue deviation. Of note, there is mild thrush on examination of the time. Left-sided upper and lower extremity shoulder abduction on the left side is 3/5, elbow extension 3/5, wrist extension 3/5, biceps 4-/5, left hip flexion 3/5, foot extension 3-/5. Right upper and lower extremity 5/5. Intact [id number] on the right upper extremity. Intact sensation bilateral and symmetrical. Objective Radiology Results Last 72 hours Impressions Chest X-Ray 08/07/16 0000 Signed Impressions: Service Date/Time: Sunday, August 07, 2016 00:52 - CONCLUSION: Right jugular line placement. Frederic Kaplan MD Brain MRI 08/06/162117 Signed Impressions: Service Date/Time: Saturday, August 06, 2016 21:47 - CONCLUSION: 1. There is some very subtle restricted diffusion in the brainstem greater on the right consistent with acute infarction. 2. Otherwise unremarkable MRI of the brain. Elder Islas MD Head CTA 08/06/162020 Signed Impressions: Service Date/Time: Saturday, August 06, 2016 20:21 - CONCLUSION: 1. Small thrombus within the distal basilar artery measuring 7 x 4 mm. 2. Otherwise unremarkable CTA brain. Dr Potter notified of these findings at 8: 57pm. Elder Islas MD Neck CTA 08/06/16 0000 Signed Impressions: Service Date/Time: Saturday, August 06, 2016 20:21 - CONCLUSION: 1. Normal CTA carotid arteries. No thrombus or aneurysm. 2. There is thrombus in the basilar artery Elder Islas MD Head CT 08/06/16 0000 Signed Impressions: Service Date/Time: Saturday, August 06, 2016 20:21 - CONCLUSION: Minimal high density in the basilar artery, otherwise unremarkable CT brain. CTA brain recommended. Elder Islas MD Micro and Labs Laboratory Tests Test 08/06/16 08/06/16 08/07/16 08/07/16 20:12 21:15 02:54 04:45 White Blood Count 13.9 Red Blood Count 5.10 Hemoglobin 14.7 Bedside Hemoglobin 15.3 Hematocrit 42.6 Bedside Hematocrit 45.0 Mean Corpuscular Volume 83.6 Mean Corpuscular Hemoglobin 28.9 Mean Corpuscular Hemoglobin 34.5 Concent Red Cell Distribution Width 13.2 Platelet Count 229 Mean Platelet Volume 9.3 Neutrophils (%) (Auto) 79.8 Lymphocytes (%) (Auto) 13.6 Monocytes (%) (Auto) 5.2 Eosinophils (%) (Auto) 0.8 Basophils (%) (Auto) 0.6 Neutrophils # (Auto) 11.1 Lymphocytes # (Auto) 1.9 Monocytes # (Auto) 0.7 Eosinophils # (Auto) 0.1 Basophils # (Auto) 0.1 CBC Comment DIFF FINAL Differential Comment Prothrombin Time 12.0 Prothromb Time International 1.1 Ratio Activated Partial 25.7 28.7 Thromboplast Time Fibrinogen 230 Bedside Sodium 143 Bedside Potassium 3.9 Bedside Chloride 105 Bedside Blood Urea Nitrogen 8 Bedside Creatinine 0.8 Bedside Glucose 106 Magnesium Level 2.1 Total Creatine Kinase 98 Troponin I LESS THAN 0.02 Ethyl Alcohol Level LESS THAN 3 Blood Type A POSITIVE Antibody Screen NEGATIVE Blood Bank Comment Phosphorus Level 1.4 Urine Color LIGHT-YELLOW Urine Turbidity CLEAR Urine pH 7.5 Urine Specific [place] 1.009 Urine Protein NEG Urine Glucose (UA) NEG Urine Ketones NEG Urine Occult Blood NEG Urine Nitrite NEG Urine Bilirubin NEG Urine Urobilinogen LESS THAN 2.0 Urine Leukocyte Esterase NEG Urine RBC LESS THAN 1 Urine WBC LESS THAN 1 Urine Squamous Epithelial <1 Cells Urine Opiates Screen NEG Urine Barbiturates Screen NEG Urine Amphetamines Screen NEG Urine Benzodiazepines Screen NEG Urine Cocaine Screen NEG Urine Cannabinoids Screen NEG Nasal Screen MRSA (PCR) NEGATIVE Test 08/07/16 08/07/16 06:55 10:25 Hemoglobin A1c 5.4 Triglycerides Level 77 Cholesterol Level 110 LDL Cholesterol 48 HDL Cholesterol 47.1 Cholesterol/HDL Ratio 2.33 Activated Partial 30.6 Thromboplast Time Mariana Soria MD Aug 07, 2016 13:37
--- NOTE | 2016-08-07 14:42 | EKG ---
Date Performed: 08/06/2016 Time Performed: 20:35:16 PTAGE: 36 years EKG: SINUS BRADYCARDIA INCOMPLETE RIGHT BUNDLE BRANCH BLOCK BORDERLINE ECG PREVIOUS TRACING : 01/21/2016 10.48 Compared to prior tracing no significant change DOCTOR: Cristopher Pan Interpretating Date/Time 08/07/2016 14:40:30
--- NOTE | 2016-08-07 15:46 | EC ---
Study Study Date:08/07/2016 STUDY CONCLUSIONS SUMMARY - Left ventricle: The cavity size was normal. Wall thickness was normal. Systolic function was normal. The estimated ejection fraction was in the range of 55% to 60%. Wall motion was normal; there were no regional wall motion abnormalities. - Aortic valve: Valve area: 1.88cm^2(VTI). Valve area: 1.77cm^2 (Vmax). If LV function is below 40, please consider prescribing an ACEI or ARB or document rationale for non-use. PROCEDURE DATA STUDY STATUS: Elective. Procedure: Transthoracic echocardiography. Image quality was good. Scanning was performed from the parasternal, apical, and subcostal acoustic windows. Study completion: The patient tolerated the procedure well. Transthoracic echocardiography. M-mode, complete 2D, complete spectral Doppler, and color Doppler. Height: Height: 73in. Weight: Weight: 177.6lb. Body mass index: BMI: 23.5kg/m^2. Body surface area: BSA: 2.05m^2. Patient status: Inpatient. CARDIAC ANATOMY LEFT VENTRICLE: The cavity size was normal. Wall thickness was normal. Systolic function was normal. The estimated ejection fraction was in the range of 55% to 60%. Wall motion was normal; there were no regional wall motion abnormalities. AORTIC VALVE: Trileaflet; normal thickness leaflets. Doppler: Transvalvular velocity was within the normal range. There was no stenosis. No regurgitation. Valve area: 1.88cm^2(VTI). Indexed valve area: 0.92cm^2/m^2 (VTI). Valve area: 1.77cm^2 (Vmax). Indexed valve area: 0.86cm^2/m^2 (Vmax). Mean gradient: 5mm Hg (S). Peak gradient: 10mm Hg (S). AORTA: Aortic root: The aortic root was normal in size. MITRAL VALVE: Structurally normal valve. Doppler: Transvalvular velocity was within the normal range. There was no evidence for stenosis. Trace regurgitation. Peak gradient: 4mm Hg (D). LEFT ATRIUM: The atrium was normal in size. RIGHT VENTRICLE: The cavity size was normal. Wall thickness was normal. PULMONIC VALVE: Doppler: Transvalvular velocity was within the normal range. There was no evidence for stenosis. No regurgitation. TRICUSPID VALVE: Structurally normal valve. Doppler: Transvalvular velocity was within the normal range. No regurgitation. PULMONARY ARTERY: The main pulmonary artery was normal-sized. Systolic pressure was within the normal range. RIGHT ATRIUM: The atrium was normal in size. PERICARDIUM: There was no pericardial effusion. SYSTEMIC VEINS: Inferior vena cava: The vessel was normal in size. Patient weight: 177.6lb _Ejection fraction:_ 65-75% _Fractional shortening:_ 32% up to 5Kg 5-11.5Kg 11.6-22.9Kg 23-45Kg 45-57Kg Aortic Root 7-13 <17 13-22 17-27 17-27 LA diam 6-13 <23 24-38 33-47 37-40 RVID 10-17 7-15 7-15 7-18 8-17 LVIDd 12-22 <32 24-38 33-47 37-40 LVPW 2-4 3-6 5-7 6-8 7-8 IVS 2-4 3-6 5-7 6-8 7-8 BASIC MEASUREMENTS ADULT NORMAL Left ventricle LV internal dimension, ED, chordal *52.9 mm 43-52 level, PLAX LV internal dimension, ES, chordal 33.4 mm 23-38 level, PLAX Fractional shortening, chordal level, 37 % >29 PLAX LV posterior wall thickness, ED 9.5 mm IVS/LVPW ratio, ED 1 <1.3 Ventricular septum Septal thickness, ED 9.51 mm Aortic valve Leaflet separation *28 mm 15-26 Aorta Root diameter, ED 36 mm Left atrium Anterior-posterior dimension 31 mm Anterior-posterior dimension index 1.51 cm/m^2 <2.2 Right ventricle RV internal dimension, ED, PLAX 29.4 mm 19-38 BASIC MEASUREMENTS ADULT NORMAL Aortic valve Leaflet separation *28 mm 15-26 DOPPLER MEASUREMENTS ADULT NORMAL Aortic valve Peak velocity, S 160 cm/s Mean velocity, S 97.8 cm/s VTI, S 33.3 cm Mean gradient, S 5 mm Hg Peak gradient, S 10 mm Hg Valve area, VTI 1.88 cm^2 Valve area index, VTI 0.92 cm^2/m^2 Valve area, Vmax 1.77 cm^2 Valve area index, Vmax 0.86 cm^2/m^2 Mitral valve Peak E-wave velocity 97.7 cm/s Peak A-wave velocity 40.5 cm/s Deceleration time *243 ms 150-230 Peak gradient, D 4 mm Hg Peak E/A ratio 2.4 Pulmonic valve Peak velocity, S 85.7 cm/s LEGEND: Mean values are shown as u=mean value. Asterisk (*) chacon values outside specified normal range. Prepared and signed by Miguel A Sweeney [id number]
[2016-08-07] MEDS: HEPARIN-D5W INJ 250 ML IV SCH (19:30)
[2016-08-07 23:15] LABS: APTT (PATIENT) 36.3 SEC (24.3-30.1)
[2016-08-08] VITALS (13 sets, daily range): BP systolic 147–168; BP diastolic 74–87; PULSE 36–64; RESP 18–31; TEMP 98.5–99.1; O2SAT 95–100
[2016-08-08] MEDS: NOREPINEPHRINE INJ 4 MG in SODIUM CHLOR 0.9% 250 ML INJ 246 ML IV SCH ×6 (00:08→22:39)
[2016-08-08] MEDS: CHLORHEXIDINE GLUCONATE 2 % 1 PACK (2 CLOTHS) TOP SCH (04:00)
[2016-08-08 05:01] LABS: APTT (PATIENT) 45.6 SEC (24.3-30.1)
[2016-08-08 05:07] LABS: HEMATOCRIT 37.1 % (39.0-51.0); MEAN CELL VOLUME 84.1 FL (80.0-100.0); MEAN CORPUSCULAR HEMOGLOBIN 27.5 PG (27.0-34.0); MEAN CORPUSCULAR HGB CONC 32.6 % (32.0-36.0); PLATELET COUNT 180 TH/MM3 (150-450); RED BLOOD COUNT 4.41 MIL/MM3 (4.50-5.90); RED CELL DISTRIBUTION WIDTH 13.1 % (11.6-17.2); REVIEW FLAG FINAL; WHITE BLOOD COUNT 16.7 TH/MM3 (4.0-11.0)
[2016-08-08 05:18] LABS: BICARBONATE 24.5 MEQ/L (21.0-32.0); POTASSIUM 3.4 MEQ/L (3.5-5.1)
[2016-08-08] MEDS: SODIUM CHLOR 0.9% 1000 ML INJ 1,000 ML IV SCH ×2 (06:04→16:08)
[2016-08-08] MEDS: SODIUM CHLORIDE 0.9% FLUSH 5 ML FLUSH IV FLUSH SCH ×2 (09:00→21:00)
--- NOTE | 2016-08-08 09:53 | HHI.CCPN ---
Subjective Remarks/Hospital Course Hospital Course: 36 yo WM who presents to [facility] ED with acute ischemic stroke. 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 Patient states he got up at around 14:30 on 08/06 to go to the bathroom and he fell and could not get up. He began texting his while she was at work and the texts were unusual. . So she called [facility] and they went to his home and he had slurred speech and reportedly refused transport. He then communicated to his "something is wrong, I need help". She arrived at his home and he was on the ground with L facial droop and L hemiparesis. [facility] was summoned again and he was taken to [facility] where he was found to be drowsy but able to follow commands. He had nystagmus and L hemiplegia. He complained of right sided headache. CT brain demonstrated basilar artery hyperdensity. CTA demonstrated thrombus within the distal basilar artery. Dr. Potter in ED discussed with Dr. Soria on several occasions. Patient was felt to not be a candidate for systemic thrombolytic due to onset of symptoms. Case was discussed with Dr. Mccoy with interventional radiology who deferred intervention as patient was felt to have collateral flow and there was concern for intervention resulting in distal showering of thrombus that might compromise this collateral circulation. MRI was also obtained which demonstrated restricted diffusion in the brainstem, greater on the right consistent with acute infarction. Dr. Soria and Dr. Mccoy agreed with initiation of heparin drip per ischemic stroke protocol which has been initiated. Patients indicates his neuro exam appears to be improving since arrival, i.e he is able to move his L arm and L leg some. His BP is 91/51 with heart rate sinus arrhythmia in 40s. I am placing CVL and initiating Levophed to target SBP 165-[address] Soria. Patient has had no witnessed seizure activity. Patient h/o unprovoked PE in 01/2016 and underwent hypercoagulable workup at that time that was negative (APL ab, Factor V Leiden, Mixing study, Protein C/S , Antithrombin III, JAK2, prothrombin gene mutation). He was on Xarelto for several months afterwards but did not quite complete full 6 months of recommended anticoagulant therapy. His mother indicated he may have h/o septal defect but it is unclear when this was diagnosed. TTE at this facility did not suggest and he has not had RIGOBERTO at this facility. He was hospitalized in ICU in [facility] 2 years ago for respiratory symptoms. Subjective: 08/07: no significant clinical change. slightly more movement of his left upper and lower extremities. awakens to voice. answers simple questions. still persistently somnolent. on levophed at 17mcg/min to achieve goal SBP 165 - 180. persistently bradycardic in the 40s. 08/08: mental status slightly better. still persists on 14 mcg/min levophed. tolerating diet. sbp goal 165 - 180. hematology consulted, pending. Objective Vital Signs Date Time Temp Pulse Resp B/P Pulse Ox O2 Delivery O2 Flow Rate FiO2 08/08/16 06:00 36 08/08/16 04:00 98.5 18 156/78 98 08/07/16 19:46 21 08/07/16 19:00 Room Air 08/07/16 02:05 2 Intake and Output 08/07/16 08/07/16 08/08/16 08:00 16:00 00:00 Intake Total 1053 ml 1830 ml 1201 ml Output Total 2250 ml 1000 ml 650 ml Balance -1197 ml 830 ml 551 ml Result Diagram: 08/08/1641908/08/16419 Objective Remarks GENERAL: Well-nourished, well-developed patient lying in bed, more arousable this morning. HEAD: Atraumatic. Normocephalic. EYES: Pupils equal and round 4mm and reactive. L eye ptosis. No scleral icterus. No injection or drainage. ENT: No nasal bleeding or discharge. Mucous membranes pink and moist. NECK: Trachea midline. No JVD. CARDIOVASCULAR: sinus bradyacrdia per telemetry. No appreciable murmurs. persists on levophed RESPIRATORY: Breathing comfortably with no accessory muscle use. Clear to auscultation bilaterally. On 2 L nasal cannula sats 100%. GASTROINTESTINAL: Abdomen soft, nontender, nondistended. no guarding. MUSCULOSKELETAL: Extremities without clubbing, cyanosis, or edema. NEUROLOGICAL: RASS -1. oriented x 3. A/P Assessment and Plan Assessment: 36yM with history of prior pulmonary embolism and now basilar artery thrombus with ischemic CVA. He remains critically ill at this time on high-dose vasopressor support to maintain adequate cerebral perfusion pressure in the setting of a life-threatening cerebral ischemic event. We will continue to press him to maintain perfusion to the penumbra. Continue anticoagulation with heparin drip. Frequent neuro checks. 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 Dr. Mccoy consulted and deferred intervention at this time due to presence of collateral flow and concern for causing embolization and compromise of collateral flow Heparin drip per ischemic stroke protocol Maintain normothermia, Ofirmev if needed for temp >100.4 Avoid hypoglycemia/hypoxemia Neurocheck q1 hour in ISC Target SBP 165-180 with levophed. Neurology following, Dr. Soria lipid profile wnl. 2d echo normal biventricular function may still require RIGOBERTO once stable to rule-out cardioembolic source. PT consult/OT/ST consults. RESP: NC wean as tolerated. Monitor for airway protection, at high risk for decompensation due to bulbar palsies. CV: Art line placed for hemodynamic monitoring. 0.9 NaCl @ 100 mL/hr. Levophed target SBP 165-180 GI: Nothing by mouth. Speech therapy consult to evaluate swallow. Likely require DHT and tube feeds if dysphagic. FEN/RENAL: Hypophosphatemia Urinary retention CK is normal. Bobby inserted for urinary retention and >1 L output Monitor intake and output. Monitor electrolytes. Replace phosphorus per ICU electrolyte replacement protocol. ID: Tinea cruris Thrush Clotrimazole 1% bid x21 days to groin Nystatin for thrush. HEME: No acute hematologic issues. Prior hypercoagulable workup was negative in January 2016. Continue heparin drip. Will require life-long anticoagulation. ENDO: Euglycemic PROPH: On heparin drip which will provide DVT prophylaxis. Protonix 40 mg IV daily for stress ulcer prophylaxis. ACCESS: Right central venous line placed 08/06/16, left radial art line 08/07/16 which was pulled out last night. will replace while on high-dose vasopressors for cerebral perfusion augmentation. Dispo: Remain in the [facility]. He remains critically ill with high likelihood of decompensation after life-threatening basilar artery brainstem stroke. This patient remains critically ill with one or more organ systems which are or may become a threat to life. I have spent in excess of 30 minutes discontinuously in the care and management of this patient. This time is exclusive of procedures, and includes, but is not limited to, evaluation of the patient, review of the medical record, discussions with family, consultants, nursing staff, or respiratory therapy, and documentation in the medical record. Dom Morales MD Aug 08, 2016 09:53
[2016-08-08] MEDS: NYSTATIN SUSP 500,000 U/5 ML CUP SWAB SCH ×4 (10:32→22:00)
[2016-08-08] MEDS: PANTOPRAZOLE SODIUM 40 MG VIAL IV SCH (10:32)
[2016-08-08] MEDS: CLOTRIMAZOLE 1% CREAM 15 GM TOPICAL SCH ×2 (10:32→21:00)
[2016-08-08] MEDS: ACETAMINOPHEN 1000 MG/100 ML VIAL IV PRN ×2 (11:32→20:16)
[2016-08-08 14:40] LABS: APTT (PATIENT) 39.7 SEC (24.3-30.1)
[2016-08-08] MEDS: HEPARIN-D5W INJ 250 ML IV SCH (15:09)
--- NOTE | 2016-08-08 15:33 | HHI.PR ---
Review/Management Diagnosis 1. 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 2. Possible hypercoagulable state given the past medical history of pulmonary embolism and DVT and was on anticoagulation/Xarelto. 3. H/o pulmonary and DVT, d/c anticoagulation two months ago on his own decision Plan 1. Monitoring in Neuro ICU. 2. Neuro checks q. 1 hours. 3. Telemetry. 4. IV heparin infusion. 5. Maintain BP 135-140/75-80 6. Hypercoagulable work up, hematology consult, recommendations are appreciated 7. Patient will likely need life long anti-coagulation Diagnosis/Plan: Daily Summary I revisited the patient in the afternoon, with no change in status, stable, discussed with Dr. Smith, and plan to consult hemoatology for thorough hypercoagulable work up, recommendations are appreciated. ECHO no evidence of PFO or cardiac clot. Subjective Subjective Comments No acute events reported Mild improvement in neurologic status Patient is more awake and alert, engaging with clinical exam at bed side Active Medications Current Medications Medications (Trade) Dose Ordered Sig/Danny Route Start Time Stop Time Status Last Admin Heparin Sodium/ Dextrose 250 ml @ 0 mls/hr TITRATE IV 08/06/16 22:00 08/08/16 15:09 (Levophed Inj/NS 250 ml Inj) 250 ml @ 0 mls/hr TITRATE IV 08/06/16 23:30 08/08/16 08:03 Terbutaline Sulfate 1 mg 1 mg UNSCH PRN SQ 08/06/16 23:30 Potassium Chloride 100 ml @ 50 mls/hr Q2H PRN IV 08/07/16 00:15 Potassium Chloride 100 ml @ 50 mls/hr Q2H PRN IV 08/07/16 00:15 Potassium Chloride 100 ml @ 25 mls/hr UNSCH PRN IV 08/07/16 00:15 Potassium Chloride 100 ml @ 50 mls/hr Q2H PRN IV 08/07/16 00:15 (Magnesium Sulfate Inj/NS Inj) 100 ml @ 50 mls/hr UNSCH PRN IV 08/07/16 00:15 Magnesium Oxide 800 mg 800 mg UNSCH PRN PO 08/07/16 00:15 (Magnesium Sulfate Inj/NS Inj) 100 ml @ 50 mls/hr UNSCH PRN IV 08/07/16 00:15 Potassium Phosphate 2000 mg 2,000 mg Q4H PRN PO 08/07/16 00:15 (Sodium Phosphate Inj/NS 250 ml Inj) 250 ml @ 42 mls/hr UNSCH PRN IV 08/07/16 00:15 08/07/16 05:37 Potassium Phosphate 2000 mg 2,000 mg UNSCH PRN PO/TUBE 08/07/16 00:15 Potassium Phosphate 30 mmol/ Sodium Chloride 260 ml @ 42 mls/hr UNSCH PRN IV 08/07/16 00:15 (NS 1000 ml Inj) 1,000 ml @ 100 mls/hr Q10H IV 08/07/16 00:04 08/08/16 06:04 (NS Flush) 2 ml UNSCH PRN IV FLUSH 08/07/16 00:15 (NS Flush) 2 ml BID IV FLUSH 08/07/16 09:00 08/07/16 21:00 (Protonix Inj) 40 mg DAILY IV 08/07/16 09:00 08/08/16 10:32 (Zofran Inj) 4 mg Q6H PRN IV 08/07/16 00:15 Miscellaneous Information 1 [id number] XX 08/07/16 00:15 (Chlorhexidine 2% Cloth) 3 pack Taper DAILY@04 TOP 08/07/16 04:00 08/03/17 03:59 08/08/16 04:00 (Chlorhexidine 2% Cloth) 3 pack UNSCH PRN TOP 08/07/16 00:15 (Ofirmev Inj) 1,000 mg Q6H PRN IV 08/07/16 00:15 08/08/16 11:32 (fentaNYL INJ) 25 mcg Q1H PRN IV PUSH 08/07/16 00:15 (fentaNYL INJ) 50 mcg Q1H PRN IV PUSH 08/07/16 00:15 (Lotrimin 1% Cream) 1 applic Q12HR TOPICAL 08/07/16 09:00 08/28/16 08:59 08/08/16 10:32 (Mycostatin Liq) 5 ml QID SWAB 08/07/16 09:00 08/08/16 10:32 Allergies Allergies Coded Allergies Codeine (Verified Allergy, Intermediate, RASH, 01/21/16) Penicillin (Verified Allergy, Intermediate, RASH, 01/21/16) Exam I&O / VS 08/07/16 08/07/16 08/08/16 14:59 22:59 06:59 Intake Total 1830 ml 1201 ml 1336 ml Output Total 1000 ml 650 ml 470 ml Balance 830 ml 551 ml 866 ml Intake Oral 240 ml IV Total 1590 ml 1201 ml 1336 ml Output Urine Total 1000 ml 650 ml 470 ml # Bowel Movements 0 0 0 Vital Signs Date Time Temp Pulse Resp B/P Pulse Ox O2 Delivery O2 Flow Rate FiO2 08/08/16 14:00 36 08/08/16 12:00 98.7 36 20 147/83 100 Arterial Line 08/08/16 12:00 47 08/08/16 10:00 42 08/08/16 08:00 36 08/08/16 08:00 98.7 40 18 156/74 100 Arterial Line 08/08/16 07:00 94 Room Air 08/08/16 06:00 36 08/08/16 04:00 36 08/08/16 04:00 98.5 36 18 156/78 98 08/08/16 02:00 38 08/08/16 00:00 98.8 40 24 166/76 98 08/08/16 00:00 40 08/07/16 23:00 42 08/07/16 20:00 99.3 48 25 158/76 98 08/07/16 19:46 99 21 08/07/16 19:00 98 Room Air 08/07/16 16:00 98.6 46 19 160/74 99 Exam Comments GENERAL: The patient is more awake, in mild distress with slurred speech. HEENT: Atraumatic, normocephalic. Intact vision. Intact hearing. NECK: No signs of meningeal irritation. No carotid bruits. CARDIOVASCULAR: Regular rate and rhythm without any murmurs. LUNGS: Clear to auscultation. No wheezes. EXTREMITIES: No clubbing, no cyanosis. Left-sided weakness and upper and lower extremity. NEUROLOGIC: The patient is awake, alert, oriented to time, person and place. Slurred speech. No dysphasia. resolving MYRNA, subtle nystagmus to the right and mild external ophthalmoplegia of the left, with dysarthria and tongue deviation. Mild thrush on examination of the time. Left-sided upper and lower extremity shoulder abduction on the left side is 4-/5, elbow extension4-3/5, wrist extension 3/5, biceps 4/5, left hip flexion 4-/5, foot extension 3-/5. Right upper and lower extremity 5/5. Intact [id number] on the right upper extremity. Intact sensation bilateral and symmetrical. Objective Radiology Results Last 72 hours Impressions Chest X-Ray 08/07/16 0000 Signed Impressions: Service Date/Time: Sunday, August 07, 2016 00:52 - CONCLUSION: Right jugular line placement. Frederic Kaplan MD Brain MRI 08/06/162117 Signed Impressions: Service Date/Time: Saturday, August 06, 2016 21:47 - CONCLUSION: 1. There is some very subtle restricted diffusion in the brainstem greater on the right consistent with acute infarction. 2. Otherwise unremarkable MRI of the brain. Elder Islas MD Head CTA 08/06/162020 Signed Impressions: Service Date/Time: Saturday, August 06, 2016 20:21 - CONCLUSION: 1. Small thrombus within the distal basilar artery measuring 7 x 4 mm. 2. Otherwise unremarkable CTA brain. Dr Potter notified of these findings at 8: 57pm. Elder Islas MD Neck CTA 08/06/16 0000 Signed Impressions: Service Date/Time: Saturday, August 06, 2016 20:21 - CONCLUSION: 1. Normal CTA carotid arteries. No thrombus or aneurysm. 2. There is thrombus in the basilar artery Elder Islas MD Head CT 08/06/16 0000 Signed Impressions: Service Date/Time: Saturday, August 06, 2016 20:21 - CONCLUSION: Minimal high density in the basilar artery, otherwise unremarkable CT brain. CTA brain recommended. Elder Islas MD Micro and Labs Laboratory Tests Test 08/07/16 08/07/16 08/08/16 08/08/16 16:30 22:30 04:20 14:00 Activated Partial 32.0 36.3 45.6 39.7 Thromboplast Time White Blood Count 16.7 Red Blood Count 4.41 Hemoglobin 12.1 Hematocrit 37.1 Mean Corpuscular Volume 84.1 Mean Corpuscular Hemoglobin 27.5 Mean Corpuscular Hemoglobin 32.6 Concent Red Cell Distribution Width 13.1 Platelet Count 180 Mean Platelet Volume 9.3 Sodium Level 146 Potassium Level 3.4 Chloride Level 113 Carbon Dioxide Level 24.5 Anion Gap 9 Blood Urea Nitrogen 8 Creatinine 0.75 Estimat Glomerular Filtration 119 Rate Random Glucose 129 Calcium Level 8.4 Mariana Soria MD Aug 08, 2016 15:33
[2016-08-08] MEDS: POTASSIUM CHLOR 40 MEQ PREMIX 100 ML IV PRN (20:51)
[2016-08-09] VITALS (14 sets, daily range): BP systolic 128–175; BP diastolic 70–88; PULSE 38–60; RESP 16–27; TEMP 98.4–98.6; O2SAT 94–100
[2016-08-09] MEDS: SODIUM CHLOR 0.9% 1000 ML INJ 1,000 ML IV SCH ×3 (01:11→23:36)
[2016-08-09] MEDS: NOREPINEPHRINE INJ 4 MG in SODIUM CHLOR 0.9% 250 ML INJ 246 ML IV SCH ×5 (03:02→20:34)
[2016-08-09] MEDS: CHLORHEXIDINE GLUCONATE 2 % 1 PACK (2 CLOTHS) TOP SCH (03:47)
[2016-08-09 04:53] LABS: HEMATOCRIT 37.8 % (39.0-51.0); MEAN CELL VOLUME 83.8 FL (80.0-100.0); MEAN CORPUSCULAR HEMOGLOBIN 28.3 PG (27.0-34.0); MEAN CORPUSCULAR HGB CONC 33.8 % (32.0-36.0); PLATELET COUNT 191 TH/MM3 (150-450); RED BLOOD COUNT 4.51 MIL/MM3 (4.50-5.90); RED CELL DISTRIBUTION WIDTH 13.9 % (11.6-17.2); REVIEW FLAG FINAL; WHITE BLOOD COUNT 17.8 TH/MM3 (4.0-11.0)
[2016-08-09 05:05] LABS: APTT (PATIENT) 38.7 SEC (24.3-30.1)
[2016-08-09 05:15] LABS: BICARBONATE 26.5 MEQ/L (21.0-32.0); POTASSIUM 3.5 MEQ/L (3.5-5.1)
[2016-08-09] MEDS: HEPARIN-D5W INJ 250 ML IV SCH (06:01)
[2016-08-09] MEDS: POTASSIUM CHLOR 40 MEQ PREMIX 100 ML IV PRN (06:08)
--- NOTE | 2016-08-09 07:19 | HHI.CCPN ---
Subjective Remarks/Hospital Course Hospital Course: 36 yo WM who presents to [facility] ED with acute ischemic stroke. 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 Patient states he got up at around 14:30 on 08/06 to go to the bathroom and he fell and could not get up. He began texting his while she was at work and the texts were unusual. . So she called [facility] and they went to his home and he had slurred speech and reportedly refused transport. He then communicated to his "something is wrong, I need help". She arrived at his home and he was on the ground with L facial droop and L hemiparesis. [facility] was summoned again and he was taken to [facility] where he was found to be drowsy but able to follow commands. He had nystagmus and L hemiplegia. He complained of right sided headache. CT brain demonstrated basilar artery hyperdensity. CTA demonstrated thrombus within the distal basilar artery. Dr. Potter in ED discussed with Dr. Soria on several occasions. Patient was felt to not be a candidate for systemic thrombolytic due to onset of symptoms. Case was discussed with Dr. Mccoy with interventional radiology who deferred intervention as patient was felt to have collateral flow and there was concern for intervention resulting in distal showering of thrombus that might compromise this collateral circulation. MRI was also obtained which demonstrated restricted diffusion in the brainstem, greater on the right consistent with acute infarction. Dr. Soria and Dr. Mccoy agreed with initiation of heparin drip per ischemic stroke protocol which has been initiated. Patients indicates his neuro exam appears to be improving since arrival, i.e he is able to move his L arm and L leg some. His BP is 91/51 with heart rate sinus arrhythmia in 40s. I am placing CVL and initiating Levophed to target SBP 165-[address] Soria. Patient has had no witnessed seizure activity. Patient h/o unprovoked PE in 01/2016 and underwent hypercoagulable workup at that time that was negative (APL ab, Factor V Leiden, Mixing study, Protein C/S , Antithrombin III, JAK2, prothrombin gene mutation). He was on Xarelto for several months afterwards but did not quite complete full 6 months of recommended anticoagulant therapy. His mother indicated he may have h/o septal defect but it is unclear when this was diagnosed. TTE at this facility did not suggest and he has not had RIGOBERTO at this facility. He was hospitalized in ICU in [facility] 2 years ago for respiratory symptoms. Subjective: 08/07: no significant clinical change. slightly more movement of his left upper and lower extremities. awakens to voice. answers simple questions. still persistently somnolent. on levophed at 17mcg/min to achieve goal SBP 165 - 180. persistently bradycardic in the 40s. 08/08: mental status slightly better. still persists on 14 mcg/min levophed. tolerating diet. sbp goal 165 - 180. hematology consulted, pending. 08/09: neuro exam stable. persists on levo for cerebral perfusion. clay removed yesterday and voiding. no complaints. will liberalize SBP goals and carefully watch neurologic exam. Also, his talked to me yesterday afternoon and apparently he has been secretly crushing and snorting around 8mg dilaudid daily- - likely many of his headache and diarrhea complaints may be opiate withdraw related. however, with his tenuous neurologic exam, giving him opiates may hurt our ability to get accurate neurologic exam. Objective Vital Signs Date Time Temp Pulse Resp B/P Pulse Ox O2 Delivery O2 Flow Rate FiO2 08/09/16 06:25 25 08/09/16 06:00 44 08/09/16 04:00 98.5 161/82 98 08/08/16 21:23 21 08/08/16 19:00 Room Air 08/07/16 02:05 2 Intake and Output 08/08/16 08/08/16 08/09/16 08:00 16:00 00:00 Intake Total 1336 ml 1875 ml 1159 ml Output Total 470 ml 2125 ml 1300 ml Balance 866 ml -250 ml -141 ml Result Diagram: 08/09/16 0430 08/09/16 043 Objective Remarks GENERAL: Well-nourished, well-developed patient lying in bed, awake, alert, only mildly sleepy at times. HEAD: Atraumatic. Normocephalic. EYES: Pupils equal and round 4mm and reactive. L eye ptosis. No scleral icterus. No injection or drainage. ENT: No nasal bleeding or discharge. Mucous membranes pink and moist. NECK: Trachea midline. No JVD. CARDIOVASCULAR: sinus bradyacrdia per telemetry. No appreciable murmurs. persists on levophed at 20 mcg/min RESPIRATORY: Breathing comfortably with no accessory muscle use. Clear to auscultation bilaterally. On room air. GASTROINTESTINAL: Abdomen soft, nontender, nondistended. no guarding. MUSCULOSKELETAL: Extremities without clubbing, cyanosis, or edema. NEUROLOGICAL: RASS 0/-1. oriented x 3. A/P Assessment and Plan Assessment: 36yM with history of prior pulmonary embolism and now basilar artery thrombus with ischemic CVA. He remains critically ill at this time on high-dose vasopressor support to maintain adequate cerebral perfusion pressure in the setting of a life-threatening cerebral ischemic event. We will carefully start to liberalize his SBP goals to 120 - 140 and carefully watch his neurologic exam. Continue anticoagulation with heparin drip. Frequent neuro checks. 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 Dr. Mccoy consulted and deferred intervention at this time due to presence of collateral flow and concern for causing embolization and compromise of collateral flow Heparin drip per ischemic stroke protocol Maintain normothermia, Ofirmev if needed for temp >100.4 Avoid hypoglycemia/hypoxemia Neurocheck q1 hour in ISC Liberalize SBP 120 - 140. will go back up if his neurologic exam worsens. Neurology following, Dr. Soria lipid profile wnl. 2d echo normal biventricular function may still require RIGOBERTO once stable to rule-out cardioembolic source. PT consult/OT/ST consults. RESP: NC wean as tolerated. Monitor for airway protection, at high risk for decompensation due to bulbar palsies. PT consult today CV: 0.9 NaCl @ 100 mL/hr. Levophed target SBP 120-140 GI: regular diet. Speech therapy consult to evaluate swallow. FEN/RENAL: Hypophosphatemia Urinary retention- resolved. CK is normal. clay removed and voiding well on his own. Monitor intake and output. Monitor electrolytes. Replace phosphorus per ICU electrolyte replacement protocol. ID: Tinea cruris Thrush Clotrimazole 1% bid x21 days to groin Nystatin for thrush. HEME: No acute hematologic issues. Prior hypercoagulable workup was negative in January 2016. Continue heparin drip. Will require life-long anticoagulation. ENDO: Euglycemic PROPH: On heparin drip which will provide DVT prophylaxis. Protonix 40 mg IV daily for stress ulcer prophylaxis. ACCESS: Right central venous line placed 08/06/16 Dispo: Remain in the [facility]. Dom Morales MD Aug 09, 2016 07:19
[2016-08-09] MEDS: PANTOPRAZOLE SODIUM 40 MG VIAL IV SCH ×2 (08:42→08:50)
[2016-08-09] MEDS: ACETAMINOPHEN 1000 MG/100 ML VIAL IV PRN ×2 (08:43→20:33)
[2016-08-09] MEDS: NYSTATIN SUSP 500,000 U/5 ML CUP SWAB SCH ×4 (08:50→20:33)
[2016-08-09] MEDS: SODIUM CHLORIDE 0.9% FLUSH 5 ML FLUSH IV FLUSH SCH ×2 (08:50→20:34)
[2016-08-09] MEDS: CLOTRIMAZOLE 1% CREAM 15 GM TOPICAL SCH ×2 (08:50→20:35)
--- NOTE | 2016-08-09 08:58 | MB ---
cc: ABDIRASHID CHOE MD DATE OF CONSULTATION: 08/09/2016 DATE OF : 1980 HEMATOLOGY/ONCOLOGY CONSULTATION CONSULTING PHYSICIANS Critical Care service. REASON FOR CONSULTATION The patient was found to have an acute arterial thrombosis involving the basilar artery. Prior to this he had a history of pulmonary emboli and lower extremity deep venous thrombosis. CURRENT TREATMENT The patient is on anticoagulation with heparin. CHIEF COMPLAINT Mr. Sales indicates difficulty speaking. His mother reports the patient has been very tearful. Additionally, he has reported in the past having blurry vision. HISTORY OF PRESENT ILLNESS Mr. Sales is a 36-year-old male of the [place] . 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 Mr. Sales presented to the [facility] after his girlfriend who is an emergency room registered nurse found him with altered mental status late in the evening on 08/06/2016. He was last seen in his usual state of health at 7:00 a.m. that morning. The patient was noted to have a left-sided facial droop and left-sided hemiparesis. Upon presentation to the emergency department he did undergo imaging studies including head CT, brain MRI and neck CT angiogram. The neck CT angiogram revealed a basilar artery stroke / thrombosis. MRI brain revealed some very subtle restricted diffusion in the brainstem, greater on the right side consistent with acute infarction. Otherwise unremarkable MRI of the brain. Mr. Sales's recent past medical history dating back to January 2016 includes right lower lobe pulmonary embolus and left lower extremity deep venous thrombosis. Both were unprovoked. He was initially seen and evaluated in January at [facility] where he was found to have the deep venous thrombosis and venous thromboembolism as well as pulmonary emboli. He was recommended anticoagulation with Xarelto 15 mg twice daily. The patient presented to [facility] because his symptoms worsened. He was seen by me and a prothrombotic work-up was performed. The prothrombotic work-up included testing for factor V Leiden mutation (no mutation identified), antithrombin III deficiency (levels noted to be normal), protein C and protein S activity levels which were both noted to be normal, and lupus anticoagulant which was also not detected. Additionally, antiphospholipid antibodies were tested which were also negative. The patient underwent prothrombin gene mutation which was negative for the [id number] mutation. A ANANT-2 mutation was also performed given the unprovoked nature of the blood clots and that was negative as well. The patient following his discharge was lost to follow-up. He remain on anticoagulation up until about two months ago and at that point self-discontinued treatment. PAST MEDICAL HISTORY 1. Pulmonary embolus involving the right lower lobe pulmonary artery, January 2016. 2. Left lower extremity deep venous thrombosis, January 2016. 3. Basilar artery thrombosis, July 2016. 4. Reported history of opioid dependence. PAST SURGICAL HISTORY 1. Right femoral neck ORIF in 2007 after traumatic injury. 2. Bronchoscopy with endobronchial biopsies for work-up of pneumonia. FAMILY HISTORY Paternal grandfather a sudden after having had some cardiac issues. Paternal uncle suddenly at a young age with suspected coronary artery disease. Father with hyperlipidemia. Mother's side of the family with oncologic diagnoses as well as diabetes. SOCIAL HISTORY The patient lives at home with his girlfriend. He has two children who are below the age of 10. He reports having smoked for eight years. He has a of the [employer] and served active duty in 2007 in [facility]. 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 ALLERGIES 1. PENICILLIN. 2. CODEINE. MEDICATIONS Current inpatient medications: 1. Pantoprazole 40 mg IV daily. 2. Heparin infusion. 3. Norepinephrine titrated to maintain systolic blood pressure per protocol. 4. Potassium replacement protocol. 5. Normal saline 100 cc per hour. 6. Tylenol 100 mg IV q.6h. as needed for pain. 7. Clotrimazole 1% topical cream q.12h. 8. Fentanyl 25 mcg IV x1 as needed for pain 4-6, and 50 mcg IV every one hour for pain 7-10. 9. Magnesium oxide 800 mg p.o. as needed. REVIEW OF SYSTEMS The patient cannot provide. Per the medical records he did have sudden onset confusion, difficulty balancing and facial droop starting the day of presentation, i.e., 08/06/2016. Prior to that he had not been unwell and indicated no symptoms of fevers, chills, night sweats, weight loss. He had not been complaining of difficulty breathing, cough, hemoptysis or lower extremity edema. At the time of this examination the patient is not very verbal and most of the history was obtained from his mom. PHYSICAL EXAMINATION VITAL SIGNS: Temperature 98.5 degrees Fahrenheit, heart rate 44 beats per minute, respiratory rate ranging between 25 and 17 breaths a minute, blood pressure 161/82, O2 sats 98% on room air. GENERAL APPEARANCE: Mr. Sales is a young male. He is lying in bed. His mother is at the bedside. He appears to be somewhat tearful. He does have a right eye temporal gaze drift. He is able to speak one or two words at a time but mostly communicates with nonverbal communication. HEENT: Head is atraumatic, normocephalic. Conjunctivae are not pale. Sclerae are anicteric. EOMI. PERRLA. No pharyngeal erythema. NECK: No palpable cervical or supraclavicular lymphadenopathy. PULMONARY: Good air movement bilaterally. No added breath sounds. CARDIOVASCULAR: Regular rate and rhythm, S1, S2. No obvious murmurs or gallops. ABDOMEN: Thin belly, soft, nontender, nondistended. No palpable organ enlargement. EXTREMITIES: No pretibial edema. No calf tenderness. CASH CHECKER: Adequate normal motor strength on the right side. He may have a 4 x 5 strength deficit on the left upper extremity. Other than that I cannot identify any significant focal sensory or motor deficits. LABORATORY FINDINGS Blood work dated 08/09/2016: WBC count 17.8, hemoglobin 12.8 gm/dl, hematocrit 38%, platelet count 191. Chemistries dated 08/09/2016: Sodium 145, potassium 3.5, chloride 111, bicarbonate 26.5, BUN 5, creatinine 0.71, EGFR 127, random glucose 129, calcium 8.7. Prothrombotic work-up dated 01/22/2016: Negative for circulating lupus anticoagulant, negative for antiphospholipid antibodies, negative for protein C or protein S deficiency, negative for ANANT-2 mutation, negative for prothrombin gene mutation, negative for factor V Leiden mutation, negative for antithrombin III deficiency. IMAGING STUDIES CTA of the carotid arteries dated 08/06/2016: Thrombus identified in the basilar artery. CTA of the head dated 08/06/2016: Small thrombus in the distal basilar artery measuring 7 x 4 mm, otherwise unremarkable CT angiogram of the brain. MRI of the brain dated 08/06/2016: Subtle restricted diffusion of the brainstem, greater on the right consistent with acute infarction. Otherwise unremarkable MRI of the brain. ASSESSMENT Mr. Sales is a 36-year-old male with some form of underlying prothrombotic state. I have seen him in the past and in January 2016 when he presented with a right lower lobe pulmonary embolus associated with lower extremity deep venous thrombosis he did undergo a thorough prothrombotic work-up for both acquired and inherited conditions predisposing individuals for thromboses. No underlying provoking factor was identified. He was recommended anticoagulation and remained on this between January 2016 and May 2016. He at that point discontinued treatment because he tells me the Xarelto was too expensive. He really had no formal follow-up with myself or any other retail property manager in the interim. I am not certain exactly why that is. I suspect part of the issue has been the fact that [place] [facility] and his providers are in that area. At any rate he developed on 08/06/2016 symptoms of confusion, left-sided facial droop and I believe hemiparesis. He was found to have an acute arterial thrombosis involving the basilar artery. He had not been on any anticoagulation at the time of these findings. He was brought into the hospital by his girlfriend who is an ER nurse at our facility. The patient did undergo the appropriate imaging studies and has been initiated on heparin infusion. I believe he is being evaluated by the neurology service as well. RECOMMENDATIONS Likely underlying prothrombotic state which is yet to be identified with resultant arterial thrombosis as well as venous thromboembolism. I would at this time recommend continuation of therapeutic anticoagulation and also the addition of an antiplatelet agent given the arterial thrombosis. He is presently on a heparin drip. I would recommend maintaining his PTT at a level which is close to twice the upper limit of normal. At present his PTT is under 40 seconds. I will defer titration of the anticoagulation to the neurologist due to the risk of hemorrhagic conversion. I did, however, review the negative prothrombotic work-up with the patient, his mother and the psychiatric specialist. MD ANDRIA Cohen/GINGER /8:04 AM /8:27 AM MTDD
[2016-08-09 12:29] LABS: APTT (PATIENT) 38.1 SEC (24.3-30.1)
[2016-08-09] MEDS: ENOXAPARIN SODIUM 80 MG/0.8 ML SYRINGE SQ SCH (18:00)
[2016-08-09 18:30] LABS: APTT (PATIENT) 34.4 SEC (24.3-30.1)
[2016-08-09] MEDS ORDERED: WARFARIN SOD 10 MG TAB PO ONE (18:30)
[2016-08-09] MEDS: MELATONIN 5 MG TAB PO SCH (20:33)
--- NOTE | 2016-08-09 20:35 | HHI.PR ---
Review/Management Diagnosis 1. 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 2. Possible hypercoagulable state given the past medical history of pulmonary embolism and DVT and was on anticoagulation/Xarelto. 3. H/o pulmonary and DVT, d/c anticoagulation two months ago on his own decision 4. Arterial and venous thrombo-embolism 5. Opiate withdrawal as per medical records, of chewing and snorting Dilaudid Plan 1. Monitoring in Neuro ICU. 2. Neuro checks q. 1 hours. 3. Telemetry. 4. IV heparin infusion. 5. Need to bridge to oral anticoagulation 6. I discussed with patient the need to be on oral anticoagulation for indefinite time, and mentioned to him the available options of being on Coumadin or one of the NOAC medications , is not present during the encounter, the nurse will relay to the to make this decision 7. Maintain BP 135-140/75-80 8. PT/OT, recommendations are appreciated Diagnosis/Plan: Subjective Subjective Comments No acute events reported Patient neurologic status has improved More awake, alert Moved and walked with PT No new complaint Active Medications Current Medications Medications (Trade) Dose Ordered Sig/Danny Route Start Time Stop Time Status Last Admin Norepinephrine Bitartrate 4 mg/ Sodium Chloride 250 ml @ 0 mls/hr TITRATE IV 08/06/16 23:30 08/09/16 16:01 Potassium Chloride 100 ml @ 50 mls/hr Q2H PRN IV 08/07/16 00:15 Potassium Chloride 100 ml @ 50 mls/hr Q2H PRN IV 08/07/16 00:15 Potassium Chloride 100 ml @ 25 mls/hr UNSCH PRN IV 08/07/16 00:15 08/09/16 06:08 Potassium Chloride 100 ml @ 50 mls/hr Q2H PRN IV 08/07/16 00:15 (Magnesium Sulfate Inj/NS Inj) 100 ml @ 50 mls/hr UNSCH PRN IV 08/07/16 00:15 Magnesium Oxide 800 mg 800 mg UNSCH PRN PO 08/07/16 00:15 (Magnesium Sulfate Inj/NS Inj) 100 ml @ 50 mls/hr UNSCH PRN IV 08/07/16 00:15 Potassium Phosphate 2000 mg 2,000 mg Q4H PRN PO 08/07/16 00:15 (Sodium Phosphate Inj/NS 250 ml Inj) 250 ml @ 42 mls/hr UNSCH PRN IV 08/07/16 00:15 08/07/16 05:37 Potassium Phosphate 2000 mg 2,000 mg UNSCH PRN PO/TUBE 08/07/16 00:15 Potassium Phosphate 30 mmol/ Sodium Chloride 260 ml @ 42 mls/hr UNSCH PRN IV 08/07/16 00:15 (NS 1000 ml Inj) 1,000 ml @ 100 mls/hr Q10H IV 08/07/16 00:04 08/09/16 12:41 (NS Flush) 2 ml UNSCH PRN IV FLUSH 08/07/16 00:15 (NS Flush) 2 ml BID IV FLUSH 08/07/16 09:00 08/07/16 21:00 (Protonix Inj) 40 mg DAILY IV 08/07/16 09:00 08/09/16 08:50 (Zofran Inj) 4 mg Q6H PRN IV 08/07/16 00:15 Miscellaneous Information 1 Q361D XX 08/07/16 00:15 (Chlorhexidine 2% Cloth) 3 pack Taper DAILY@04 TOP 08/07/16 04:00 08/03/17 03:59 08/09/16 03:47 (Chlorhexidine 2% Cloth) 3 pack UNSCH PRN TOP 08/07/16 00:15 (Ofirmev Inj) 1,000 mg Q6H PRN IV 08/07/16 00:15 08/09/16 08:43 (Lotrimin 1% Cream) 1 applic Q12HR TOPICAL 08/07/16 09:00 08/28/16 08:59 08/09/16 08:50 (Mycostatin Liq) 5 ml QID SWAB 08/07/16 09:00 08/09/16 18:23 (Aspirin) 325 mg DAILY PO 08/10/16 09:00 Enoxaparin Sodium 80 mg 80 mg Q12H SQ 08/09/16 18:00 (Coumadin Consult Pharmacy) 0 ml @ 0 mls/hr UNSCH OTHER 08/09/16 18:15 (Melatonin) 5 mg HS PO 08/09/16 21:00 Allergies Allergies Coded Allergies Codeine (Verified Allergy, Intermediate, RASH, 01/21/16) Penicillin (Verified Allergy, Intermediate, RASH, 01/21/16) Exam I&O / VS 08/08/16 08/08/16 08/09/16 15:00 23:00 07:00 Intake Total 1875 ml 1159 ml 1418 ml Output Total 1850 ml 1575 ml 1400 ml Balance 25 ml -416 ml 18 ml Intake Oral 240 ml 100 ml IV Total 1635 ml 1159 ml 1318 ml Output Urine Total 1850 ml 1575 ml 1400 ml # Bowel Movements 1 0 0 Vital Signs Date Time Temp Pulse Resp B/P Pulse Ox O2 Delivery O2 Flow Rate FiO2 08/09/16 18:00 51 08/09/16 16:00 98.4 45 16 140/79 99 08/09/16 16:00 40 08/09/16 14:00 47 08/09/16 12:00 42 08/09/16 12:00 98.5 42 20 144/70 95 08/09/16 10:00 60 08/09/16 08:21 100 21 08/09/16 08:00 98.5 42 18 175/88 97 08/09/16 08:00 43 08/09/16 07:00 97 Room Air 08/09/16 06:25 25 08/09/16 06:00 44 08/09/16 04:00 38 08/09/16 04:00 98.5 38 17 161/82 98 08/09/16 02:00 42 08/09/16 00:00 40 08/09/16 00:00 98.5 40 27 154/75 99 08/08/16 22:00 46 08/08/16 21:23 97 21 08/08/16 20:51 23 Exam Comments GENERAL: The patient is more awake, not in distress with slurred speech. HEENT: Atraumatic, normocephalic. Intact vision. Intact hearing. NECK: No signs of meningeal irritation. No carotid bruits. CARDIOVASCULAR: Regular rate and rhythm without any murmurs. LUNGS: Clear to auscultation. No wheezes. EXTREMITIES: No clubbing, no cyanosis. Left-sided ataxic weakness and upper and lower extremity. NEUROLOGIC: The patient is awake, alert, oriented to time, person and place. Slurred speech. No dysphasia. resolving MYRNA, subtle horizontal nystagmus to the left, left nerve palsy, with dysarthria and tongue deviation. Left-sided upper and lower extremity shoulder abduction on the left side is 4/5, elbow extension 4-3/5, wrist extension 4-/5, biceps 4/5, left hip flexion 4-/5, foot extension 3-/5. Right upper and lower extremity 5/5. Intact [id number] on the right upper extremity. Intact sensation bilateral and symmetrical. Objective Radiology Results Last 72 hours Impressions Chest X-Ray 08/07/16 0000 Signed Impressions: Service Date/Time: Sunday, August 07, 2016 00:52 - CONCLUSION: Right jugular line placement. Frederic Kaplna MD Brain MRI [id number]/06/[id number] Signed Impressions: Service Date/Time: Saturday, August 06, 2016 21:47 - CONCLUSION: 1. There is some very subtle restricted diffusion in the brainstem greater on the right consistent with acute infarction. 2. Otherwise unremarkable MRI of the brain. Elder Islas MD Micro and Labs Laboratory Tests Test 08/09/16 08/09/16 08/09/16 04:30 12:00 18:00 White Blood Count 17.8 Red Blood Count 4.51 Hemoglobin 12.8 Hematocrit 37.8 Mean Corpuscular Volume 83.8 Mean Corpuscular Hemoglobin 28.3 Mean Corpuscular Hemoglobin 33.8 Concent Red Cell Distribution Width 13.9 Platelet Count 191 Mean Platelet Volume 9.3 Activated Partial 38.7 38.1 34.4 Thromboplast Time Sodium Level 145 Potassium Level 3.5 Chloride Level 111 Carbon Dioxide Level 26.5 Anion Gap 8 Blood Urea Nitrogen 5 Creatinine 0.71 Estimat Glomerular Filtration 127 Rate Random Glucose 129 Calcium Level 8.7 Mariana Soria MD Aug 09, 2016 20:35
[2016-08-10] VITALS (14 sets, daily range): BP systolic 109–144; BP diastolic 62–88; PULSE 40–71; RESP 16–26; TEMP 98.1–98.6; O2SAT 96–98
[2016-08-10] MEDS: ACETAMINOPHEN 1000 MG/100 ML VIAL IV PRN ×3 (03:38→19:38)
[2016-08-10] MEDS: CHLORHEXIDINE GLUCONATE 2 % 1 PACK (2 CLOTHS) TOP SCH (04:00)
[2016-08-10 06:06] LABS: HEMATOCRIT 38.9 % (39.0-51.0); MEAN CELL VOLUME 84.2 FL (80.0-100.0); MEAN CORPUSCULAR HEMOGLOBIN 27.6 PG (27.0-34.0); MEAN CORPUSCULAR HGB CONC 32.8 % (32.0-36.0); PLATELET COUNT 174 TH/MM3 (150-450); RED BLOOD COUNT 4.62 MIL/MM3 (4.50-5.90); RED CELL DISTRIBUTION WIDTH 13.6 % (11.6-17.2); REVIEW FLAG FINAL; WHITE BLOOD COUNT 11.8 TH/MM3 (4.0-11.0)
[2016-08-10 06:18] LABS: INTERNATIONAL NORMALIZED RATIO 1.2 RATIO; PROTHROMBIN TIME - PATIENT 13.5 SEC (9.8-11.6)
[2016-08-10 06:31] LABS: BICARBONATE 26.7 MEQ/L (21.0-32.0); POTASSIUM 3.7 MEQ/L (3.5-5.1)
[2016-08-10] MEDS: NOREPINEPHRINE INJ 4 MG in SODIUM CHLOR 0.9% 250 ML INJ 246 ML IV SCH (06:44)
[2016-08-10] MEDS: ENOXAPARIN SODIUM 80 MG/0.8 ML SYRINGE SQ SCH ×2 (06:46→17:01)
[2016-08-10] MEDS: SODIUM CHLORIDE 0.9% FLUSH 5 ML FLUSH IV FLUSH SCH ×2 (07:31→20:27)
[2016-08-10] MEDS: SODIUM CHLOR 0.9% 1000 ML INJ 1,000 ML IV SCH ×2 (08:04→17:01)
[2016-08-10] MEDS: PANTOPRAZOLE SODIUM 40 MG VIAL IV SCH (08:41)
[2016-08-10] MEDS: ASPIRIN 325 MG TAB PO SCH (08:41)
[2016-08-10] MEDS: CLOTRIMAZOLE 1% CREAM 15 GM TOPICAL SCH ×2 (08:41→20:27)
[2016-08-10] MEDS: NYSTATIN SUSP 500,000 U/5 ML CUP SWAB SCH ×4 (08:41→20:27)
--- NOTE | 2016-08-10 11:11 | HHI.CCPN ---
Subjective Remarks/Hospital Course Hospital Course: 36 yo WM who presents to [facility] ED with acute ischemic stroke. 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 Patient states he got up at around 14:30 on 08/06 to go to the bathroom and he fell and could not get up. He began texting his while she was at work and the texts were unusual. . So she called [facility] and they went to his home and he had slurred speech and reportedly refused transport. He then communicated to his "something is wrong, I need help". She arrived at his home and he was on the ground with L facial droop and L hemiparesis. [facility] was summoned again and he was taken to [facility] where he was found to be drowsy but able to follow commands. He had nystagmus and L hemiplegia. He complained of right sided headache. CT brain demonstrated basilar artery hyperdensity. CTA demonstrated thrombus within the distal basilar artery. Dr. Potter in ED discussed with Dr. Soria on several occasions. Patient was felt to not be a candidate for systemic thrombolytic due to onset of symptoms. Case was discussed with Dr. Mccoy with interventional radiology who deferred intervention as patient was felt to have collateral flow and there was concern for intervention resulting in distal showering of thrombus that might compromise this collateral circulation. MRI was also obtained which demonstrated restricted diffusion in the brainstem, greater on the right consistent with acute infarction. Dr. Soria and Dr. Mccoy agreed with initiation of heparin drip per ischemic stroke protocol which has been initiated. Patients indicates his neuro exam appears to be improving since arrival, i.e he is able to move his L arm and L leg some. His BP is 91/51 with heart rate sinus arrhythmia in 40s. I am placing CVL and initiating Levophed to target SBP 165-[address] Soria. Patient has had no witnessed seizure activity. Patient h/o unprovoked PE in 01/2016 and underwent hypercoagulable workup at that time that was negative (APL ab, Factor V Leiden, Mixing study, Protein C/S , Antithrombin III, JAK2, prothrombin gene mutation). He was on Xarelto for several months afterwards but did not quite complete full 6 months of recommended anticoagulant therapy. His mother indicated he may have h/o septal defect but it is unclear when this was diagnosed. TTE at this facility did not suggest and he has not had RIGOBERTO at this facility. He was hospitalized in ICU in [facility] 2 years ago for respiratory symptoms. Subjective: 08/07: no significant clinical change. slightly more movement of his left upper and lower extremities. awakens to voice. answers simple questions. still persistently somnolent. on levophed at 17mcg/min to achieve goal SBP 165 - 180. persistently bradycardic in the 40s. 08/08: mental status slightly better. still persists on 14 mcg/min levophed. tolerating diet. sbp goal 165 - 180. hematology consulted, pending. 08/09: neuro exam stable. persists on levo for cerebral perfusion. clay removed yesterday and voiding. no complaints. will liberalize SBP goals and carefully watch neurologic exam. Also, his talked to me yesterday afternoon and apparently he has been secretly crushing and snorting around 8mg dilaudid daily- - likely many of his headache and diarrhea complaints may be opiate withdraw related. however, with his tenuous neurologic exam, giving him opiates may hurt our ability to get accurate neurologic exam. 08/10: neuro exam remains stable. levo down to 5 mcg/min. stable neuro exam despite liberalizing pressure goals. Objective Vital Signs Date Time Temp Pulse Resp B/P Pulse Ox O2 Delivery O2 Flow Rate FiO2 08/10/16 10:00 54 08/10/16 08:20 97 21 08/10/16 08:00 98.1 21 123/88 08/10/16 07:00 Room Air 08/07/16 02:05 2 Intake and Output 08/09/16 08/09/16 08/10/16 08:00 16:00 00:00 Intake Total 1418 ml 1773 ml 1706 ml Output Total 1400 ml 1725 ml Balance 18 ml 48 ml 1706 ml Result Diagram: 08/10/16 0542 08/10/16 0542 Objective Remarks GENERAL: Well-nourished, well-developed patient lying in bed, awake, alert, only mildly sleepy at times. HEAD: Atraumatic. Normocephalic. EYES: Pupils equal and round 4mm and reactive. L eye ptosis. No scleral icterus. No injection or drainage. ENT: No nasal bleeding or discharge. Mucous membranes pink and moist. NECK: Trachea midline. No JVD. CARDIOVASCULAR: sinus bradyacrdia per telemetry. No appreciable murmurs. persists on levophed at 5 mcg/min RESPIRATORY: Breathing comfortably with no accessory muscle use. Clear to auscultation bilaterally. On room air. GASTROINTESTINAL: Abdomen soft, nontender, nondistended. no guarding. MUSCULOSKELETAL: Extremities without clubbing, cyanosis, or edema. NEUROLOGICAL: RASS 0/-1. oriented x 3. A/P Assessment and Plan Assessment: 36yM with history of prior pulmonary embolism and now basilar artery thrombus with ischemic CVA. We will continue to liberalize his SBP goals to 110 - 120 and carefully watch his neurologic exam. Frequent neuro checks. 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 Dr. Mccoy consulted and deferred intervention at this time due to presence of collateral flow and concern for causing embolization and compromise of collateral flow full dose anticoagulation with Lovenox bridge to coumadin. Maintain normothermia, Ofirmev if needed for temp >100.4 Avoid hypoglycemia/hypoxemia Neurocheck q1 hour in ISC Liberalize SBP 110 - 120. will go back up if his neurologic exam worsens. Neurology following, Dr. Soria lipid profile wnl. 2d echo normal biventricular function may still require RIGOBERTO once stable to rule-out cardioembolic source. PT consult/OT/ST consults. RESP: NC wean as tolerated. Monitor for airway protection, at high risk for decompensation due to bulbar palsies. PT consult CV: 0.9 NaCl @ 100 mL/hr. Levophed target SBP 110-120. will keep ivf until taking good PO and off vasopressors. GI: regular diet. Speech therapy consult to evaluate swallow. FEN/RENAL: Hypophosphatemia Urinary retention- resolved. CK is normal. clay removed and voiding well on his own. Monitor intake and output. Monitor electrolytes. Replace phosphorus per ICU electrolyte replacement protocol. ID: Tinea cruris Thrush Clotrimazole 1% bid x21 days to groin Nystatin for thrush. HEME: No acute hematologic issues. Prior hypercoagulable workup was negative in January 2016. Will require life-long anticoagulation. Lovenox bridge to coumadin with pharmacy consult. Hematology following: Dr. Bolanos ENDO: Euglycemic PROPH: Lovenox which will provide DVT prophylaxis. Protonix 40 mg IV daily for stress ulcer prophylaxis. ACCESS: Right central venous line placed 08/06/16. This must remain until we are off vasopressors. Dispo: Remain in the ISC. Dom Morales MD Aug 10, 2016 11:11
[2016-08-10] MEDS ORDERED: WARFARIN SOD 10 MG TAB PO SCH (16:00)
[2016-08-10] MEDS: MELATONIN 5 MG TAB PO SCH (20:27)
--- NOTE | 2016-08-10 20:53 | HHI.PR ---
Review/Management Diagnosis 1. 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 2. Possible hypercoagulable state given the past medical history of pulmonary embolism and DVT and was on anticoagulation/Xarelto. 3. H/o pulmonary and DVT, d/c anticoagulation two months ago on his own decision 4. Arterial and venous thrombo-embolism 5. Opiate withdrawal as per medical records, of chewing and snorting Dilaudid Plan 1. Monitoring in Neuro ICU. 2. Neuro checks q. 1 hours. 3. Telemetry. 4. Started Warfarin/ bridging with heparin infusion. 5. Maintain BP 135-140/75-80 6. PT/OT, recommendations are appreciated Diagnosis/Plan: Subjective Subjective Comments No acute events reported Started bridging to oral anticoagulation/ Coumadin No new complaint or symptoms Improved and stable neurologic exam Active Medications Current Medications Medications (Trade) Dose Ordered Sig/Danny Route Start Time Stop Time Status Last Admin Norepinephrine Bitartrate 4 mg/ Sodium Chloride 250 ml @ 0 mls/hr TITRATE IV 08/06/16 23:30 08/10/16 06:44 Potassium Chloride 100 ml @ 50 mls/hr Q2H PRN IV 08/07/16 00:15 Potassium Chloride 100 ml @ 50 mls/hr Q2H PRN IV 08/07/16 00:15 Potassium Chloride 100 ml @ 25 mls/hr UNSCH PRN IV 08/07/16 00:15 08/09/16 06:08 Potassium Chloride 100 ml @ 50 mls/hr Q2H PRN IV 08/07/16 00:15 (Magnesium Sulfate Inj/NS Inj) 100 ml @ 50 mls/hr UNSCH PRN IV 08/07/16 00:15 Magnesium Oxide 800 mg 800 mg UNSCH PRN PO 08/07/16 00:15 (Magnesium Sulfate Inj/NS Inj) 100 ml @ 50 mls/hr UNSCH PRN IV 08/07/16 00:15 Potassium Phosphate 2000 mg 2,000 mg Q4H PRN PO 08/07/16 00:15 (Sodium Phosphate Inj/NS 250 ml Inj) 250 ml @ 42 mls/hr UNSCH PRN IV 08/07/16 00:15 08/07/16 05:37 Potassium Phosphate 2000 mg 2,000 mg UNSCH PRN PO/TUBE 08/07/16 00:15 Potassium Phosphate 30 mmol/ Sodium Chloride 260 ml @ 42 mls/hr UNSCH PRN IV 08/07/16 00:15 (NS 1000 ml Inj) 1,000 ml @ 100 mls/hr Q10H IV 08/07/16 00:04 08/10/16 17:01 (NS Flush) 2 ml UNSCH PRN IV FLUSH 08/07/16 00:15 (NS Flush) 2 ml BID IV FLUSH 08/07/16 09:00 08/10/16 20:27 (Protonix Inj) 40 mg DAILY IV 08/07/16 09:00 08/10/16 08:41 (Zofran Inj) 4 mg Q6H PRN IV 08/07/16 00:15 Miscellaneous Information 1 Q361D XX 08/07/16 00:15 (Chlorhexidine 2% Cloth) 3 pack Taper DAILY@04 TOP 08/07/16 04:00 08/03/17 03:59 08/09/16 03:47 (Chlorhexidine 2% Cloth) 3 pack UNSCH PRN TOP 08/07/16 00:15 (Ofirmev Inj) 1,000 mg Q6H PRN IV 08/07/16 00:15 08/10/16 19:38 (Lotrimin 1% Cream) 1 applic Q12HR TOPICAL 08/07/16 09:00 08/28/16 08:59 08/10/16 08:41 (Mycostatin Liq) 5 ml QID SWAB 08/07/16 09:00 08/10/16 20:27 (Aspirin) 325 mg DAILY PO 08/10/16 09:00 08/10/16 08:41 Enoxaparin Sodium 80 mg 80 mg Q12H SQ 08/09/16 18:00 08/10/16 17:01 (Coumadin Consult Pharmacy) 0 ml @ 0 mls/hr UNSCH OTHER 08/09/16 18:15 (Melatonin) 5 mg HS PO 08/09/16 21:00 08/10/16 20:27 (Coumadin) 10 mg ONCE PO 08/10/16 16:00 08/10/16 21:00 08/10/16 17:00 (Coumadin) 5 mg DAILY@16 PO 08/11/16 16:00 Allergies Allergies Coded Allergies Codeine (Verified Allergy, Intermediate, RASH, 01/21/16) Penicillin (Verified Allergy, Intermediate, RASH, 01/21/16) Exam I&O / VS 08/09/16 08/09/16 08/10/16 15:00 23:00 07:00 Intake Total 1773 ml 1706 ml 1242 ml Output Total 1725 ml Balance 48 ml 1706 ml 1242 ml Intake Oral 240 ml 240 ml 420 ml IV Total 1533 ml 1466 ml 822 ml Output Urine Total 1725 ml # Voids 6 3 # Bowel Movements 1 1 0 Vital Signs Date Time Temp Pulse Resp B/P Pulse Ox O2 Delivery O2 Flow Rate FiO2 08/10/16 19:59 97 21 08/10/16 19:00 98 Room Air 08/10/16 18:00 57 08/10/16 16:00 98.1 57 24 109/62 98 08/10/16 16:00 57 08/10/16 14:00 71 08/10/16 12:00 49 08/10/16 12:00 98.1 49 26 120/69 96 08/10/16 10:00 54 08/10/16 08:20 97 21 08/10/16 08:00 42 08/10/16 08:00 98.1 42 21 123/88 98 08/10/16 07:00 99 Room Air 08/10/16 06:00 48 08/10/16 04:00 44 08/10/16 04:00 98.6 44 16 122/79 97 08/10/16 02:00 44 08/10/16 00:00 98.4 40 21 144/77 97 08/09/16 22:00 42 Exam Comments GENERAL: The patient is more awake, not in distress with slurred speech. HEENT: Atraumatic, normocephalic. Intact vision. Intact hearing. NECK: No signs of meningeal irritation. No carotid bruits. CARDIOVASCULAR: Regular rate and rhythm without any murmurs. LUNGS: Clear to auscultation. No wheezes. EXTREMITIES: No clubbing, no cyanosis. Left-sided ataxic weakness and upper and lower extremity. NEUROLOGIC: The patient is awake, alert, oriented to time, person and place. Slurred speech. No dysphasia. resolving MYRNA, subtle horizontal nystagmus to the left, left nerve palsy, dysarthria and tongue deviation. Left-sided upper and lower extremity shoulder abduction on the left side is 4/5, elbow extension 4-3/5, wrist extension 4-/5, biceps 4/5, left hip flexion 4-/5, foot extension 3-/5. Right upper and lower extremity 5/5. Intact xcioca-an-vule on the right upper extremity. Intact sensation bilateral and symmetrical. Objective Micro and Labs Laboratory Tests Test 08/10/16 05:42 White Blood Count 11.8 Red Blood Count 4.62 Hemoglobin 12.8 Hematocrit 38.9 Mean Corpuscular Volume 84.2 Mean Corpuscular Hemoglobin 27.6 Mean Corpuscular Hemoglobin 32.8 Concent Red Cell Distribution Width 13.6 Platelet Count 174 Mean Platelet Volume 9.1 Prothrombin Time 13.5 Prothromb Time International 1.2 Ratio Sodium Level 145 Potassium Level 3.7 Chloride Level 111 Carbon Dioxide Level 26.7 Anion Gap 7 Blood Urea Nitrogen 7 Creatinine 0.66 Estimat Glomerular Filtration 138 Rate Random Glucose 99 Calcium Level 9.2 Mariana Soria MD Aug 10, 2016 20:53 Mariana Soria MD Aug 10, 2016 20:53
[2016-08-11] VITALS (13 sets, daily range): BP systolic 99–133; BP diastolic 52–70; PULSE 36–85; RESP 14–24; TEMP 97.8–98.9; O2SAT 97–100
[2016-08-11] MEDS: ACETAMINOPHEN 1000 MG/100 ML VIAL IV PRN (00:48)
[2016-08-11] MEDS: CHLORHEXIDINE GLUCONATE 2 % 1 PACK (2 CLOTHS) TOP SCH (04:00)
[2016-08-11] MEDS: SODIUM CHLOR 0.9% 1000 ML INJ 1,000 ML IV SCH (04:04)
[2016-08-11 05:17] LABS: HEMATOCRIT 37.6 % (39.0-51.0); MEAN CELL VOLUME 84.1 FL (80.0-100.0); MEAN CORPUSCULAR HEMOGLOBIN 28.6 PG (27.0-34.0); MEAN CORPUSCULAR HGB CONC 34.1 % (32.0-36.0); PLATELET COUNT 166 TH/MM3 (150-450); RED BLOOD COUNT 4.47 MIL/MM3 (4.50-5.90); RED CELL DISTRIBUTION WIDTH 13.3 % (11.6-17.2); REVIEW FLAG FINAL; WHITE BLOOD COUNT 10.6 TH/MM3 (4.0-11.0)
[2016-08-11 05:28] LABS: INTERNATIONAL NORMALIZED RATIO 1.8 RATIO; PROTHROMBIN TIME - PATIENT 20.7 SEC (9.8-11.6)
[2016-08-11 05:31] LABS: BICARBONATE 28.5 MEQ/L (21.0-32.0); POTASSIUM 3.6 MEQ/L (3.5-5.1)
[2016-08-11] MEDS: NOREPINEPHRINE INJ 4 MG in SODIUM CHLOR 0.9% 250 ML INJ 246 ML IV SCH (05:59)
[2016-08-11] MEDS: ENOXAPARIN SODIUM 80 MG/0.8 ML SYRINGE SQ SCH ×2 (05:59→17:00)
[2016-08-11] MEDS: PANTOPRAZOLE SODIUM 40 MG VIAL IV SCH (07:29)
[2016-08-11] MEDS: ASPIRIN 325 MG TAB PO SCH (07:30)
[2016-08-11] MEDS ORDERED: ACETAMINOPHEN 325 MG TAB PO PRN (08:15)
[2016-08-11] MEDS ORDERED: DEXAMETHASONE SOD PHOS 4 MG/ML VIAL IV PUSH ONE (08:15)
[2016-08-11] MEDS: SODIUM CHLORIDE 0.9% FLUSH 5 ML FLUSH IV FLUSH SCH ×2 (08:26→20:43)
[2016-08-11] MEDS: NYSTATIN SUSP 500,000 U/5 ML CUP SWAB SCH ×4 (08:26→20:43)
--- NOTE | 2016-08-11 09:25 | HHI.CCPN ---
Subjective Remarks/Hospital Course Hospital Course: 36 yo WM who presents [place] [facility] with acute ischemic stroke. 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 Patient states he got up at around 14:30 on 08/06 to go to the bathroom and he fell and could not get up. He began texting his while she was at work and the texts were unusual. . So she called [facility] and they went to his home and he had slurred speech and reportedly refused transport. He then communicated to his "something is wrong, I need help". She arrived at his home and he was on the ground with L facial droop and L hemiparesis. [facility] was summoned again and he was taken to [facility] where he was found to be drowsy but able to follow commands. He had nystagmus and L hemiplegia. He complained of right sided headache. CT brain demonstrated basilar artery hyperdensity. CTA demonstrated thrombus within the distal basilar artery. Dr. Potter in ED discussed with Dr. Soria on several occasions. Patient was felt to not be a candidate for systemic thrombolytic due to onset of symptoms. Case was discussed with Dr. Mccoy with interventional radiology who deferred intervention as patient was felt to have collateral flow and there was concern for intervention resulting in distal showering of thrombus that might compromise this collateral circulation. MRI was also obtained which demonstrated restricted diffusion in the brainstem, greater on the right consistent with acute infarction. Dr. Soria and Dr. Mccoy agreed with initiation of heparin drip per ischemic stroke protocol which has been initiated. Patients indicates his neuro exam appears to be improving since arrival, i.e he is able to move his L arm and L leg some. His BP is 91/51 with heart rate sinus arrhythmia in 40s. I am placing CVL and initiating Levophed to target SBP 165-[address] Soria. Patient has had no witnessed seizure activity. Patient h/o unprovoked PE in 01/2016 and underwent hypercoagulable workup at that time that was negative (APL ab, Factor V Leiden, Mixing study, Protein C/S , Antithrombin III, JAK2, prothrombin gene mutation). He was on Xarelto for several months afterwards but did not quite complete full 6 months of recommended anticoagulant therapy. His mother indicated he may have h/o septal defect but it is unclear when this was diagnosed. TTE at this facility did not suggest and he has not had RIGOBERTO at this facility. He was hospitalized in ICU in [facility] 2 years ago for respiratory symptoms. Subjective: 08/07: no significant clinical change. slightly more movement of his left upper and lower extremities. awakens to voice. answers simple questions. still persistently somnolent. on levophed at 17mcg/min to achieve goal SBP 165 - 180. persistently bradycardic in the 40s. 08/08: mental status slightly better. still persists on 14 mcg/min levophed. tolerating diet. sbp goal 165 - 180. hematology consulted, pending. 08/09: neuro exam stable. persists on levo for cerebral perfusion. clay removed yesterday and voiding. no complaints. will liberalize SBP goals and carefully watch neurologic exam. Also, his talked to me yesterday afternoon and apparently he has been secretly crushing and snorting around 8mg dilaudid daily- - likely many of his headache and diarrhea complaints may be opiate withdraw related. however, with his tenuous neurologic exam, giving him opiates may hurt our ability to get accurate neurologic exam. 08/10: neuro exam remains stable. levo down to 5 mcg/min. stable neuro exam despite liberalizing pressure goals. 08/11: neuro exam stable. levo @ 4 mcg/min. continuing to liberalize sbp goals. becoming more net + over last few days. will d/c mivf. Objective Vital Signs Date Time Temp Pulse Resp B/P Pulse Ox O2 Delivery O2 Flow Rate FiO2 08/11/16 06:00 36 08/11/16 04:00 98.5 23 119/66 98 08/10/16 19:59 21 08/10/16 19:00 Room Air Intake and Output 08/10/16 08/10/16 08/11/16 08:00 16:00 00:00 Intake Total 1242 ml 1658 ml 1157 ml Output Total 900 ml Balance 1242 ml 1658 ml 257 ml Result Diagram: 08/11/16 0455 08/11/16 0455 Objective Remarks GENERAL: Well-nourished, well-developed patient lying in bed, awake, alert, only mildly sleepy at times. HEAD: Atraumatic. Normocephalic. EYES: Pupils equal and round 4mm and reactive. L eye ptosis. No scleral icterus. No injection or drainage. ENT: No nasal bleeding or discharge. Mucous membranes pink and moist. NECK: Trachea midline. No JVD. CARDIOVASCULAR: sinus bradyacrdia per telemetry. No appreciable murmurs. persists on levophed at 4 mcg/min RESPIRATORY: Breathing comfortably with no accessory muscle use. Clear to auscultation bilaterally. On room air. GASTROINTESTINAL: Abdomen soft, nontender, nondistended. no guarding. MUSCULOSKELETAL: Extremities without clubbing, cyanosis, or edema. NEUROLOGICAL: RASS 0. oriented x 3. A/P Assessment and Plan Assessment: 36yM with history of prior pulmonary embolism and now basilar artery thrombus with ischemic CVA. We will continue to liberalize his SBP goals to 100 - 120 and carefully watch his neurologic exam. Frequent neuro checks. would prefer to wean norepinephrine off today if tolerated. 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 Dr. Mccoy consulted and deferred intervention at this time due to presence of collateral flow and concern for causing embolization and compromise of collateral flow full dose anticoagulation with Lovenox bridge to coumadin. Maintain normothermia, tylenol if needed for temp >100.4 Avoid hypoglycemia/hypoxemia Neurocheck q1 hour in ISC Liberalize SBP 100 - 120. will go back up if his neurologic exam worsens. Neurology following, Dr. Soria lipid profile wnl. 2d echo normal biventricular function Would plan on cardiology consult with possible RIGOBERTO to rule-out cardioembolic source, but would wait at least 1-2 weeks to ensure patient's neurologic status is very stable. PT consult/OT/ST consults. Family asking about SSRI for depression- I would prefer to hold off again until CVA course is much more stable, and re-eval in 1-2 weeks. there is likely a large adjustment disorder component to this. RESP: NC wean as tolerated. Monitor for airway protection. PT consult. OOB with assist. CV: saline lock ivf. wean norepinephrine today. SBP goals 100 - 120 GI: regular diet. Speech therapy following. FEN/RENAL: Urinary retention- resolved. CK is normal. clay removed and voiding well on his own. Monitor intake and output. Monitor electrolytes. Replace per protocol. ID: Tinea cruris Thrush Clotrimazole 1% bid x21 days to groin Nystatin for thrush. HEME: No acute hematologic issues. Prior hypercoagulable workup was negative in January 2016. Will require life-long anticoagulation. Lovenox bridge to coumadin with pharmacy consult. Hematology following: Dr. Bolanos ENDO: Euglycemic PROPH: Lovenox which will provide DVT prophylaxis. Protonix 40 mg IV daily for stress ulcer prophylaxis. ACCESS: Right central venous line placed 08/06/16. This must remain until we are off vasopressors. Dispo: Remain in the ICU. If he remains off vasopressors with stable neurologic exam, could transfer out of ICU. Dom Morales MD Aug 11, 2016 09:25
--- NOTE | 2016-08-11 09:27 | PD.ONC.PN ---
Subjective Subjective Remarks Mr. Sales reports feeling a little bit better overall, he does however report a headache this morning. He tells me his speech is better and that his arm weakness has completely resolved. He continues to have nystagmus of the left eye and difficulty focusing. Objective Data Date Time Temp Pulse Resp B/P Pulse Ox O2 Delivery O2 Flow Rate FiO2 08/11/16 06:00 36 08/11/16 04:00 43 08/11/16 04:00 98.5 43 23 119/66 98 08/11/16 02:00 41 08/11/16 00:00 40 08/11/16 00:00 98.9 40 20 127/69 100 08/10/16 22:00 43 08/10/16 20:00 43 08/10/16 20:00 98.6 43 20 110/66 97 08/10/16 19:59 97 21 08/10/16 19:00 98 Room Air 08/10/16 18:00 57 08/10/16 16:00 98.1 57 24 109/62 98 08/10/16 16:00 57 08/10/16 14:00 71 08/10/16 12:00 49 08/10/16 12:00 98.1 49 26 120/69 96 08/10/16 10:00 54 08/11/16 08/11/16 08/11/16 07:00 15:00 23:00 Intake Total 880 ml Output Total 800 ml Balance 80 ml Result Diagram: 08/11/16 0455 08/11/16 0455 Laboratory Results Laboratory Tests Test 08/11/16 04:55 White Blood Count 10.6 TH/MM3 Red Blood Count 4.47 MIL/MM3 Hemoglobin 12.8 GM/DL Hematocrit 37.6 % Mean Corpuscular Volume 84.1 FL Mean Corpuscular Hemoglobin 28.6 PG Mean Corpuscular Hemoglobin 34.1 % Concent Red Cell Distribution Width 13.3 % Platelet Count 166 TH/MM3 Mean Platelet Volume 9.6 FL Prothrombin Time 20.7 SEC Prothromb Time International 1.8 RATIO Ratio Sodium Level 145 MEQ/L Potassium Level 3.6 MEQ/L Chloride Level 111 MEQ/L Carbon Dioxide Level 28.5 MEQ/L Anion Gap 6 MEQ/L Blood Urea Nitrogen 9 MG/DL Creatinine 0.71 MG/DL Estimat Glomerular Filtration 127 ML/MIN Rate Random Glucose 96 MG/DL Calcium Level 8.8 MG/DL Administered Medications Medications (Trade) Dose Ordered Sig/Danny Route PRN Reason Start Time Stop Time Status Last Admin Dose Admin Norepinephrine Bitartrate 4 mg/ Sodium Chloride 250 ml @ 0 mls/hr TITRATE IV 08/06/16 23:30 08/11/16 05:59 Potassium Chloride 100 ml @ 25 mls/hr UNSCH PRN IV For Potassium 3.3 - 3.5 mEq/L 08/07/16 00:15 08/09/16 06:08 Sodium Phosphate/ Sodium Chloride (Sodium Phosphate Inj/NS 250 ml Inj) 250 ml @ 42 mls/hr UNSCH PRN IV For Phosphorus < 2.5 mg/dL 08/07/16 00:15 08/07/16 05:37 IV Flush (NS Flush) 2 ml BID IV FLUSH 08/07/16 09:00 08/11/16 08:26 Pantoprazole Sodium (Protonix Inj) 40 mg DAILY IV 08/07/16 09:00 08/11/16 07:29 Chlorhexidine Gluconate (Chlorhexidine 2% Cloth) 3 pack Taper DAILY@04 TOP 08/07/16 04:00 08/03/17 03:59 08/11/16 04:00 Clotrimazole (Lotrimin 1% Cream) 1 applic Q12HR TOPICAL 08/07/16 09:00 08/28/16 08:59 08/10/16 08:41 Nystatin (Mycostatin Liq) 5 ml QID SWAB 08/07/16 09:00 08/11/16 08:26 Aspirin (Aspirin) 325 mg DAILY PO 08/10/16 09:00 08/11/16 07:30 Enoxaparin Sodium (Lovenox Inj) 80 mg Q12H SQ 08/09/16 18:00 08/11/16 05:59 Melatonin (Melatonin) 5 mg HS PO 08/09/16 21:00 08/10/16 20:27 Objective Remarks GENERAL APPEARANCE: Mr. Sales is a young male. Sitting up in bed, not acutely distressed. HEENT: Head is atraumatic, normocephalic. Conjunctivae are not pale. Sclerae are anicteric. EOMI. PERRLA. Nystagmus of the left eye. NECK: No palpable cervical or supraclavicular lymphadenopathy. PULMONARY: Good air movement bilaterally. No added breath sounds. CARDIOVASCULAR: Regular rate and rhythm, S1, S2. No obvious murmurs or gallops. ABDOMEN: Thin belly, soft, nontender, nondistended. No palpable organ enlargement. EXTREMITIES: No pretibial edema. No calf tenderness. SCUTCHER TENDER: Adequate normal motor strength on the right side. He may have a 4 x 5 strength deficit on the left upper extremity. Other than that I cannot identify any significant focal sensory or motor deficits. Assessment/Plan Assessment Mr. Sales is a 36-year-old male with some form of underlying prothrombotic state. I have seen him in the past and in January 2016 when he presented with a right lower lobe pulmonary embolus associated with lower extremity deep venous thrombosis he did undergo a thorough prothrombotic work-up for both acquired and inherited conditions predisposing individuals for thromboses. No underlying provoking factor was identified. He was recommended anticoagulation and remained on this between January 2016 and May 2016. He at that point discontinued treatment because he tells me the Xarelto was too expensive. He really had no formal follow-up with myself or any other stacker in the interim. I am not certain exactly why that is. I suspect part of the issue has been the fact that [place] [facility] and his providers are in that area. At any rate he developed on 08/06/2016 symptoms of confusion, left-sided facial droop and I believe hemiparesis. He was found to have an acute arterial thrombosis involving the basilar artery. He had not been on any anticoagulation at the time of these findings. He was brought into the hospital by his girlfriend who is an ER nurse at our facility. The patient did undergo the appropriate imaging studies and has been initiated on heparin infusion. I believe he is being evaluated by the neurology service as well. Plan 1. Basilar artery thrombosis involving the brainstem: Continue anticoagulation with Lovenox with bridging to warfarin. Continue antiplatelet therapy with aspirin 81 mg daily. His INR is 1.8 today, I would recommend continuation of Lovenox with warfarin until his INR is greater than 2. 2. History of lower extremity deep venous thrombosis and pulmonary emboli: Continue therapeutic anticoagulation. Cholo Bolanos MD Aug 11, 2016 09:27
[2016-08-11] MEDS ORDERED: WARFARIN SOD 5 MG TAB PO SCH (16:00)
--- NOTE | 2016-08-11 18:14 | HHI.PR ---
Review/Management Diagnosis 1. 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 2. Possible hypercoagulable state given the past medical history of pulmonary embolism and DVT and was on anticoagulation/Xarelto. 3. H/o pulmonary and DVT, d/c anticoagulation two months ago on his own decision 4. Arterial and venous thrombo-embolism 5. Opiate withdrawal as per medical records, of chewing and snorting Dilaudid Plan 1. Monitoring in Neuro ICU. 2. Neuro checks q. 1 hours. 3. Telemetry. 4. Started Warfarin/ bridging 5. Target INR >2 6. Maintain BP 135-140/75-80 7. PT/OT, recommendations are appreciated 8. I explained to the patient and about the emotional liability that this may accompany a stroke syndrome, and at this time, it is not recommended to start medications that may negatively affect his awareness and cognition unless highly needed, patient and agree on the plan. Diagnosis/Plan: Subjective Subjective Comments No acute events reported Patient as reported by nurse is getting emotional More awake, alert Intact swallowing Improved left UE weakness and coordination On bridging Coumadin dose Active Medications Current Medications Medications (Trade) Dose Ordered Sig/Danny Route Start Time Stop Time Status Last Admin Norepinephrine Bitartrate 4 mg/ Sodium Chloride 250 ml @ 0 mls/hr TITRATE IV 08/06/16 23:30 08/11/16 05:59 Potassium Chloride 100 ml @ 50 mls/hr Q2H PRN IV 08/07/16 00:15 Potassium Chloride 100 ml @ 50 mls/hr Q2H PRN IV 08/07/16 00:15 Potassium Chloride 100 ml @ 25 mls/hr UNSCH PRN IV 08/07/16 00:15 08/09/16 06:08 Potassium Chloride 100 ml @ 50 mls/hr Q2H PRN IV 08/07/16 00:15 (Magnesium Sulfate Inj/NS Inj) 100 ml @ 50 mls/hr UNSCH PRN IV 08/07/16 00:15 Magnesium Oxide 800 mg 800 mg UNSCH PRN PO 08/07/16 00:15 (Magnesium Sulfate Inj/NS Inj) 100 ml @ 50 mls/hr UNSCH PRN IV 08/07/16 00:15 Potassium Phosphate 2000 mg 2,000 mg Q4H PRN PO 08/07/16 00:15 (Sodium Phosphate Inj/NS 250 ml Inj) 250 ml @ 42 mls/hr UNSCH PRN IV 08/07/16 00:15 08/07/16 05:37 Potassium Phosphate 2000 mg 2,000 mg UNSCH PRN PO/TUBE 08/07/16 00:15 (Potassium Phosphate Inj/NS 250 ml Inj) 260 ml @ 42 mls/hr UNSCH PRN IV 08/07/16 00:15 (NS Flush) 2 ml UNSCH PRN IV FLUSH 08/07/16 00:15 (NS Flush) 2 ml BID IV FLUSH 08/07/16 09:00 08/11/16 08:26 (Protonix Inj) 40 mg DAILY IV 08/07/16 09:00 08/11/16 07:29 (Zofran Inj) 4 mg Q6H PRN IV 08/07/16 00:15 Miscellaneous Information 1 Q361D XX 08/07/16 00:15 (Chlorhexidine 2% Cloth) 3 pack Taper DAILY@04 TOP 08/07/16 04:00 08/03/17 03:59 08/11/16 04:00 (Chlorhexidine 2% Cloth) 3 pack UNSCH PRN TOP 08/07/16 00:15 (Lotrimin 1% Cream) 1 applic Q12HR TOPICAL 08/07/16 09:00 08/28/16 08:59 08/10/16 08:41 (Mycostatin Liq) 5 ml QID SWAB 08/07/16 09:00 08/11/16 08:26 (Aspirin) 325 mg DAILY PO 08/10/16 09:00 08/11/16 07:30 Enoxaparin Sodium 80 mg 80 mg Q12H SQ 08/09/16 18:00 08/11/16 17:00 (Coumadin Consult Pharmacy) 0 ml @ 0 mls/hr UNSCH OTHER 08/09/16 18:15 (Melatonin) 5 mg HS PO 08/09/16 21:00 08/10/16 20:27 (Coumadin) 5 mg DAILY@16 PO 08/11/16 16:00 08/11/16 17:00 (Tylenol) 650 mg Q6H PRN PO 08/11/16 08:15 (Decadron Inj) 1 mg Q6H PRN IV PUSH 08/11/16 14:15 Allergies Allergies Coded Allergies Codeine (Verified Allergy, Intermediate, RASH, 01/21/16) Penicillin (Verified Allergy, Intermediate, RASH, 01/21/16) Exam I&O / VS 08/10/16 08/10/16 08/11/16 15:00 23:00 07:00 Intake Total 1658 ml 1157 ml 880 ml Output Total 900 ml 800 ml Balance 1658 ml 257 ml 80 ml Intake Oral 720 ml 50 ml 0 ml IV Total 938 ml 1107 ml 880 ml Output Urine Total 900 ml 800 ml # Voids 5 # Bowel Movements 0 0 Vital Signs Date Time Temp Pulse Resp B/P Pulse Ox O2 Delivery O2 Flow Rate FiO2 08/11/16 16:00 98.8 66 14 107/65 98 08/11/16 16:00 66 08/11/16 14:00 80 08/11/16 12:00 97.8 54 16 99/52 98 08/11/16 12:00 54 08/11/16 10:00 70 08/11/16 08:00 97 Room Air 08/11/16 08:00 98.9 85 22 133/64 97 08/11/16 08:00 66 08/11/16 06:00 36 08/11/16 04:00 43 08/11/16 04:00 98.5 43 23 119/66 98 08/11/16 02:00 41 08/11/16 00:00 40 08/11/16 00:00 98.9 40 20 127/69 100 08/10/16 22:00 43 08/10/16 20:00 43 08/10/16 20:00 98.6 43 20 110/66 97 08/10/16 19:59 97 21 08/10/16 19:00 98 Room Air Exam Comments GENERAL: The patient is awake, not in distress with mild slurred speech.Emotional at times during the encounter HEENT: Atraumatic, normocephalic. Intact vision. Intact hearing. NECK: No signs of meningeal irritation. No carotid bruits. CARDIOVASCULAR: Regular rate and rhythm without any murmurs. LUNGS: Clear to auscultation. No wheezes. EXTREMITIES: No clubbing, no cyanosis. Mild left-sided ataxic weakness and upper and lower extremity. NEUROLOGIC: The patient is awake, alert, oriented to time, person and place. Slurred speech. No dysphasia. resolving MYRNA, subtle horizontal nystagmus to the left, left nerve palsy, dysarthria and tongue deviation. Left-sided upper and lower extremity shoulder abduction on the left side is 4+/5, elbow extension 4/5, wrist extension 4/5, biceps 4+/5, left hip flexion 4/5, foot extension 4+/5. Right upper and lower extremity 5/5. Intact [id number] on the right upper extremity. Intact sensation bilateral and symmetrical. Objective Micro and Labs Laboratory Tests Test 08/11/16 04:55 White Blood Count 10.6 Red Blood Count 4.47 Hemoglobin 12.8 Hematocrit 37.6 Mean Corpuscular Volume 84.1 Mean Corpuscular Hemoglobin 28.6 Mean Corpuscular Hemoglobin 34.1 Concent Red Cell Distribution Width 13.3 Platelet Count 166 Mean Platelet Volume 9.6 Prothrombin Time 20.7 Prothromb Time International 1.8 Ratio Sodium Level 145 Potassium Level 3.6 Chloride Level 111 Carbon Dioxide Level 28.5 Anion Gap 6 Blood Urea Nitrogen 9 Creatinine 0.71 Estimat Glomerular Filtration 127 Rate Random Glucose 96 Calcium Level 8.8 Mariana Soria MD Aug 11, 2016 18:14
[2016-08-11] MEDS: MELATONIN 5 MG TAB PO SCH (20:43)
[2016-08-11] MEDS: DEXAMETHASONE SOD PHOS 4 MG/ML VIAL IV PUSH PRN (20:43)
[2016-08-11] MEDS: FAMOTIDINE 20 MG TAB PO SCH (20:43)
[2016-08-11] MEDS: CLOTRIMAZOLE 1% CREAM 15 GM TOPICAL SCH (20:45)
[2016-08-12] VITALS (10 sets, daily range): BP systolic 116–133; BP diastolic 60–73; PULSE 58–78; RESP 16–20; TEMP 97.1–98.9; O2SAT 96–98
[2016-08-12] MEDS: DEXAMETHASONE SOD PHOS 4 MG/ML VIAL IV PUSH PRN ×2 (03:59→08:33)
[2016-08-12] MEDS: CHLORHEXIDINE GLUCONATE 2 % 1 PACK (2 CLOTHS) TOP SCH (04:00)
[2016-08-12 04:41] LABS: HEMATOCRIT 38.8 % (39.0-51.0); MEAN CELL VOLUME 83.9 FL (80.0-100.0); MEAN CORPUSCULAR HEMOGLOBIN 28.2 PG (27.0-34.0); MEAN CORPUSCULAR HGB CONC 33.7 % (32.0-36.0); PLATELET COUNT 188 TH/MM3 (150-450); RED BLOOD COUNT 4.62 MIL/MM3 (4.50-5.90); RED CELL DISTRIBUTION WIDTH 13.6 % (11.6-17.2); REVIEW FLAG FINAL; WHITE BLOOD COUNT 13.9 TH/MM3 (4.0-11.0)
[2016-08-12 04:51] LABS: INTERNATIONAL NORMALIZED RATIO 2.8 RATIO; PROTHROMBIN TIME - PATIENT 31.9 SEC (9.8-11.6)
[2016-08-12 05:10] LABS: BICARBONATE 26.1 MEQ/L (21.0-32.0); POTASSIUM 3.5 MEQ/L (3.5-5.1)
[2016-08-12] MEDS: ENOXAPARIN SODIUM 80 MG/0.8 ML SYRINGE SQ SCH (05:55)
[2016-08-12] MEDS: ASPIRIN 325 MG TAB PO SCH (08:33)
[2016-08-12] MEDS: FAMOTIDINE 20 MG TAB PO SCH ×2 (08:33→21:19)
[2016-08-12] MEDS: SODIUM CHLORIDE 0.9% FLUSH 5 ML FLUSH IV FLUSH SCH ×2 (08:33→21:00)
[2016-08-12] MEDS: CLOTRIMAZOLE 1% CREAM 15 GM TOPICAL SCH ×2 (08:55→21:00)
[2016-08-12] MEDS: NYSTATIN SUSP 500,000 U/5 ML CUP SWAB SCH ×4 (08:55→21:00)
[2016-08-12] MEDS: DEXAMETHASONE 4 MG TAB PO PRN ×2 (15:08→21:28)
--- NOTE | 2016-08-12 16:39 | HHI.PR ---
Subjective Remarks Follow up for acute ischemic brainstem infarction. Patient was transferred to the medical floor today. Patient is currently doing well. His speech is not back to baseline but much improved per patient's significant other. Denies any chest pain, shortness of breath, fever or chills. He reports double vision when both eyes are open. Objective Vitals Vital Signs Date Time Temp Pulse Resp B/P Pulse Ox O2 Delivery O2 Flow Rate FiO2 08/12/16 13:03 97.1 64 18 120/66 98 08/12/16 08:10 97 21 08/12/16 08:00 78 08/12/16 06:00 76 08/12/16 04:00 58 08/12/16 04:00 98.8 58 16 119/68 08/12/16 02:00 70 08/12/16 00:00 63 08/12/16 00:00 97.7 63 20 133/60 08/11/16 22:00 73 08/11/16 20:00 98.1 75 24 113/70 08/11/16 20:00 75 08/11/16 19:02 98 21 08/11/16 18:00 72 I/O 08/11/16 08/11/16 08/11/16 08/12/16 08/12/16 08/12/16 07:00 15:00 23:00 07:00 15:00 23:00 Intake Total 880 ml 886 ml 300 ml 10 ml Output Total 800 ml 300 ml 200 ml 250 ml Balance 80 ml 586 ml 100 ml -240 ml Intake Oral 0 ml 820 ml 300 ml IV Total 880 ml 66 ml 10 ml Output Urine Total 800 ml 300 ml 200 ml 250 ml # Voids 3 1 1 # Bowel Movements 0 0 Result Diagram: 08/12/16 0310 08/12/16 0310 Imaging Last Impressions Chest X-Ray 08/07/16 0000 Signed Impressions: Service Date/Time: Sunday, August 07, 2016 00:52 - CONCLUSION: Right jugular line placement. Frederic Kaplan MD Brain MRI [id number] Signed Impressions: Service Date/Time: Saturday, August 06, 2016 21:47 - CONCLUSION: 1. There is some very subtle restricted diffusion in the brainstem greater on the right consistent with acute infarction. 2. Otherwise unremarkable MRI of the brain. Elder Islas MD Head CTA [id number]/06/[id number] Signed Impressions: Service Date/Time: Saturday, August 06, 2016 20:21 - CONCLUSION: 1. Small thrombus within the distal basilar artery measuring 7 x 4 mm. 2. Otherwise unremarkable CTA brain. Dr Potter notified of these findings at 8: 57pm. Elder Islas MD Neck CTA 08/06/16 0000 Signed Impressions: Service Date/Time: Saturday, August 06, 2016 20:21 - CONCLUSION: 1. Normal CTA carotid arteries. No thrombus or aneurysm. 2. There is thrombus in the basilar artery Elder Islas MD Head CT 08/06/16 0000 Signed Impressions: Service Date/Time: Saturday, August 06, 2016 20:21 - CONCLUSION: Minimal high density in the basilar artery, otherwise unremarkable CT brain. CTA brain recommended. Elder Islas MD Objective Remarks GENERAL: Alert, oriented x 3. Speech somewhat slurred but improved per family. SKIN: Warm and dry. HEAD: Normocephalic. EYES: No scleral icterus. No injection or drainage. Left nerve palsy. Pupils equal and reactive to light. NECK: Supple, trachea midline. No JVD or lymphadenopathy. CARDIOVASCULAR: Regular rate and rhythm without murmurs, gallops, or rubs. RESPIRATORY: Breath sounds equal bilaterally. No accessory muscle use. GASTROINTESTINAL: Abdomen soft, non-tender, nondistended. MUSCULOSKELETAL: No cyanosis, or edema. BACK: Nontender without obvious deformity. No CVA tenderness. Procedures Echo 08/07/2016 - Left ventricle: The cavity size was normal. Wall thickness was normal. Systolic function was normal. The estimated ejection fraction was in the range of 55% to 60%. Wall motion was normal; there were no regional wall motion abnormalities. - Aortic valve: Valve area: 1.88cm^2(VTI). Valve area: 1.77cm^2 (Vmax). A/P Problem List: (1) Thrombotic stroke involving basilar artery ICD Code: I63.02 Status: Acute (2) Hx of deep venous thrombosis ICD Code: Z86.718 Status: Acute (3) Hx of pulmonary embolus ICD Code: Z86.711 Status: Acute Assessment and Plan Mr. 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 Neurology and interventional radiology were contacted who recommended against any invasive intervention including TPA. Patient was managed in the ICU and was transferred to the hospitalist service on 08/12/2016. - Thrombotic stroke involving basilar artery - Hematology, Neurology following. - Continue Warfarin. INR 2.8 today. Goal INR 2-3. - Will decrease aspirin to 81mg Qday. - Blood pressure with reasonable range. No need for anti-hypertensives at this point. - History of unprovoked DVT and later PE - Continue Warfarin lifelong. - Headache - Tylenol and if headache is severe, Decadron. - Probable discharge home tomorrow to continue home health speech/OT or outpatient speech/OT. Full code. Warfarin INR 2.8. Francois Shaw DO Aug 12, 2016 4:39 pm
--- NOTE | 2016-08-12 17:46 | PD.ONC.PN ---
Subjective Subjective Remarks patient understandably frustrated. states that heart rate goes into the mid 30 s Objective Data Date Time Temp Pulse Resp B/P Pulse Ox O2 Delivery O2 Flow Rate FiO2 08/12/16 16:32 98.9 73 18 116/64 96 08/12/16 13:03 97.1 64 18 120/66 98 08/12/16 08:10 97 21 08/12/16 08:00 78 08/12/16 06:00 76 08/12/16 04:00 58 08/12/16 04:00 98.8 58 16 119/68 08/12/16 02:00 70 08/12/16 00:00 63 08/12/16 00:00 97.7 63 20 133/60 08/11/16 22:00 73 08/11/16 20:00 98.1 75 24 113/70 08/11/16 20:00 75 08/11/16 19:02 98 21 08/11/16 18:00 72 08/12/16 08/12/16 08/12/16 07:00 15:00 23:00 Intake Total 10 ml Output Total 250 ml Balance -240 ml Result Diagram: 08/12/16 0310 08/12/16 0310 Laboratory Results Laboratory Tests Test 08/12/16 03:10 White Blood Count 13.9 TH/MM3 Red Blood Count 4.62 MIL/MM3 Hemoglobin 13.0 GM/DL Hematocrit 38.8 % Mean Corpuscular Volume 83.9 FL Mean Corpuscular Hemoglobin 28.2 PG Mean Corpuscular Hemoglobin 33.7 % Concent Red Cell Distribution Width 13.6 % Platelet Count 188 TH/MM3 Mean Platelet Volume 10.0 FL Prothrombin Time 31.9 SEC Prothromb Time International 2.8 RATIO Ratio Sodium Level 144 MEQ/L Potassium Level 3.5 MEQ/L Chloride Level 110 MEQ/L Carbon Dioxide Level 26.1 MEQ/L Anion Gap 8 MEQ/L Blood Urea Nitrogen 14 MG/DL Creatinine 0.73 MG/DL Estimat Glomerular Filtration 123 ML/MIN Rate Random Glucose 139 MG/DL Calcium Level 9.4 MG/DL Administered Medications Medications (Trade) Dose Ordered Sig/Danny Route PRN Reason Start Time Stop Time Status Last Admin Dose Admin IV Flush (NS Flush) 2 ml BID IV FLUSH 08/07/16 09:00 08/12/16 08:33 Chlorhexidine Gluconate (Chlorhexidine 2% Cloth) Taper DAILY@04 TOP 08/07/16 04:00 08/03/17 03:59 08/11/16 04:00 Clotrimazole (Lotrimin 1% Cream) 1 applic Q12HR TOPICAL 08/07/16 09:00 08/28/16 08:59 08/12/16 08:55 Nystatin (Mycostatin Liq) 5 ml QID SWAB 08/07/16 09:00 08/12/16 13:22 Melatonin (Melatonin) 5 mg HS PO 08/09/16 21:00 08/11/16 20:43 Warfarin Sodium (Coumadin) 5 mg DAILY@16 PO 08/11/16 16:00 Hold 08/11/16 17:00 Famotidine (Pepcid) 20 mg BID PO 08/11/16 21:00 08/12/16 08:33 Dexamethasone (Decadron) 4 mg Q6HR PRN PO 08/12/16 14:30 08/12/16 15:08 Objective Remarks GENERAL: Well-nourished, well-developed patient. SKIN: Warm and dry. HEAD: Normocephalic. EYES: No scleral icterus. No injection or drainage. NECK: Supple, trachea midline. No JVD or lymphadenopathy. LYMPHATIC: No adenopathy. CARDIOVASCULAR: Regular rate and rhythm without murmurs. RESPIRATORY: Breath sounds equal bilaterally. No accessory muscle use. GASTROINTESTINAL: Abdomen soft, non-tender, nondistended. EXTREMITIES: No cyanosis, or edema. MUSCULOSKELETAL: Adequate muscle tone. NEUROLOGICAL: dysarthric, walking uncoordinated PSYCHIATRIC: Appropriate mood and affect; insight and judgment normal. 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 Will check CT of thorax, abd and pelvis to make sure there is no malignancy. will ask cardiology to see given 's observation of pulse in mid 30s, check cmp, LDH, retic count, haptoglobin to see if any evidence of hemolysis which can be assoiciated with PNH. His problems remain unexplained and devastating Hans Toro MD Aug 12, 2016 17:46
[2016-08-12] MEDS ORDERED: IOHEXOL 350 MG/ML 10 ML VIAL (for RAD DIAG) IV ONE (18:02)
--- NOTE | 2016-08-12 18:52 | RADRPT ---
EXAM DATE/TIME: 08/12/2016 17:58 [facility] COMPARISON: No previous studies available for comparison. INDICATIONS : Evaluate for metastatic disease. IV CONTRAST: 100 cc Omnipaque 350 (iohexol) IV ; Cumulative dose for multiple exams. RADIATION DOSE: 11.21 CTDIvol (mGy) ; Combined studies - Thorax/Abdomen/Pelvis MEDICAL HISTORY : Deep venous thrombosis. Stroke SURGICAL HISTORY : Hip. ENCOUNTER: Initial ACUITY: 1 day PAIN SCALE: 0/10 LOCATION: Bilateral chest TECHNIQUE: Volumetric scanning of the chest was performed. Using automated exposure control and adjustment of t he mA and/or kV according to patient size, radiation dose was kept as low as reasonably achievable to obtain optimal diagnostic quality images. FINDINGS: LUNGS: There is no consolidation or pneumothorax. No concerning pulmonary nodule is visualized. PLEURA: There is no pleural thickening or pleural effusion. MEDIASTINUM: The heart and great vessels demonstrate no acute abnormality. There is no mediastinal or hilar lymph adenopathy. AXILLAE: Within normal limits. No lymphadenopathy. SKELETAL: Within normal limits for patient age. MISCELLANEOUS: The visualized upper abdominal organs demonstrate no acute abnormality. CONCLUSION: 1. Negative for metastatic disease. No acute findings. Ayo Butler MD on August 12, 2016 at 18:13 Board Certified Radiologist. This report was verified electronically.
--- NOTE | 2016-08-12 19:24 | RADRPT ---
EXAM DATE/TIME: 08/12/2016 17:58 [facility] COMPARISON: No previous studies available for comparison. INDICATIONS : Evaluate for metastatic disease. IV CONTRAST: 100 cc Omnipaque 350 (iohexol) IV ORAL CONTRAST: No oral contrast ingested. RADIATION DOSE: 11.21 CTDIvol (mGy) ; Combined studies - Thorax/Abdomen/Pelvis MEDICAL HISTORY : Deep venous thrombosis. Stroke SURGICAL HISTORY : Hip. ENCOUNTER: Initial ACUITY: 1 day PAIN SCALE: 0/10 LOCATION: Bilateral abdomen. TECHNIQUE: Volumetric scanning of the abdomen and pelvis was performed. Using automated exposure control and ad justment of the mA and/or kV according to patient size, radiation dose was kept as low as reasonably achievable to obtain optimal diagnostic quality images. FINDINGS: LOWER LUNGS: The visualized lower lungs are clear. LIVER: Homogeneous density without lesion. There is no dilation of the biliary tree. No calcified gallston es. SPLEEN: Normal size without lesion. PANCREAS: Within normal limits. KIDNEYS: Normal in size and shape. There is no mass, stone or hydronephrosis. ADRENAL GLANDS: Within normal limits. VASCULAR: There is no aortic aneurysm. BOWEL/MESENTERY: The stomach, small bowel, and colon demonstrate no acute abnormality. There is no free intraperitone al air or fluid. ABDOMINAL WALL: Within normal limits. RETROPERITONEUM: There is no lymphadenopathy. BLADDER: No wall thickening or mass. REPRODUCTIVE: Within normal limits. INGUINAL: There is no lymphadenopathy or hernia. MUSCULOSKELETAL: Within normal limits for patient age. CONCLUSION: Normal examination. Ayo Butler MD on August 12, 2016 at 19:20 Board Certified Radiologist. This report was verified electronically.
[2016-08-12] MEDS: MELATONIN 5 MG TAB PO SCH (21:19)
[2016-08-13] VITALS (7 sets, daily range): BP systolic 120–138; BP diastolic 70–82; PULSE 48–95; RESP 16–18; TEMP 97.1–98.6; O2SAT 96–98
[2016-08-13] MEDS: CHLORHEXIDINE GLUCONATE 2 % 1 PACK (2 CLOTHS) TOP SCH (04:00)
[2016-08-13 06:05] LABS: INTERNATIONAL NORMALIZED RATIO 1.7 RATIO
[2016-08-13 06:09] LABS: HEMATOCRIT 38.7 % (39.0-51.0); MEAN CELL VOLUME 84.2 FL (80.0-100.0); MEAN CORPUSCULAR HEMOGLOBIN 28.1 PG (27.0-34.0); MEAN CORPUSCULAR HGB CONC 33.4 % (32.0-36.0); PLATELET COUNT 199 TH/MM3 (150-450); RED BLOOD COUNT 4.59 MIL/MM3 (4.50-5.90); REVIEW FLAG FINAL
[2016-08-13 06:10] LABS: ALT (GPT) 57 U/L (12-78); ANION GAP 7 MEQ/L (5-15); AST (GOT) 33 U/L (15-37); BICARBONATE 27.5 MEQ/L (21.0-32.0); BLOOD UREA NITROGEN 17 MG/DL (7-18); CHLORIDE 110 MEQ/L (98-107); GLOMERULAR FILTRATION RATE 133 ML/MIN (>89); LDH SERUM 172 U/L (87-241); SODIUM (NA) 144 MEQ/L (136-145)
[2016-08-13 06:11] LABS: ALKALINE PHOSPHATASE 53 U/L (45-117); TOTAL BILIRUBIN ADULT 0.2 MG/DL (0.2-1.0)
[2016-08-13 06:30] LABS: RETIC % 1.5 % (0.4-3.0)
[2016-08-13] MEDS: ASPIRIN 81 MG CHEW TAB PO SCH (08:35)
[2016-08-13] MEDS: NYSTATIN SUSP 500,000 U/5 ML CUP SWAB SCH ×4 (08:35→21:15)
[2016-08-13] MEDS: DEXAMETHASONE 4 MG TAB PO PRN ×3 (08:36→21:15)
[2016-08-13] MEDS: FAMOTIDINE 20 MG TAB PO SCH ×2 (08:36→21:15)
[2016-08-13] MEDS: SODIUM CHLORIDE 0.9% FLUSH 5 ML FLUSH IV FLUSH SCH ×2 (08:37→21:00)
[2016-08-13] MEDS: CLOTRIMAZOLE 1% CREAM 15 GM TOPICAL SCH ×2 (08:38→21:00)
--- NOTE | 2016-08-13 11:49 | PD.ONC.PN ---
Subjective Subjective Remarks Afebrile overnight. Pt is tearful. Visitors at bedside. Mom states he got anxious and confused last night. Objective Data Date Time Temp Pulse Resp B/P Pulse Ox O2 Delivery O2 Flow Rate FiO2 08/13/16 10:46 97 21 08/13/16 08:11 98.6 95 18 138/72 98 08/13/16 05:30 98.1 69 18 131/79 96 08/13/16 00:30 97.1 62 16 120/75 96 08/12/16 21:50 97.7 64 18 131/73 97 08/12/16 19:45 21 08/12/16 16:32 98.9 73 18 116/64 96 08/12/16 13:03 97.1 64 18 120/66 98 08/13/16 08/13/16 08/13/16 07:00 15:00 23:00 Intake Total 800 ml Balance 800 ml Result Diagram: 08/13/16 0442 08/13/16 0442 Laboratory Results Laboratory Tests Test 08/13/16 04:42 White Blood Count 15.0 TH/MM3 Red Blood Count 4.59 MIL/MM3 Hemoglobin 12.9 GM/DL Hematocrit 38.7 % Mean Corpuscular Volume 84.2 FL Mean Corpuscular Hemoglobin 28.1 PG Mean Corpuscular Hemoglobin 33.4 % Concent Red Cell Distribution Width 14.0 % Platelet Count 199 TH/MM3 Mean Platelet Volume 10.1 FL Reticulocyte Count 1.5 % Absolute Reticulocyte Count 66.7 MIL/L Haptoglobin 201 MG/DL Prothrombin Time 19.0 SEC Prothromb Time International 1.7 RATIO Ratio Sodium Level 144 MEQ/L Potassium Level 4.0 MEQ/L Chloride Level 110 MEQ/L Carbon Dioxide Level 27.5 MEQ/L Anion Gap 7 MEQ/L Blood Urea Nitrogen 17 MG/DL Creatinine 0.68 MG/DL Estimat Glomerular Filtration 133 ML/MIN Rate Random Glucose 121 MG/DL Calcium Level 9.3 MG/DL Total Bilirubin 0.2 MG/DL Aspartate Amino Transf 33 U/L (AST/SGOT) Alanine Aminotransferase 57 U/L (ALT/SGPT) Alkaline Phosphatase 53 U/L Lactate Dehydrogenase 172 U/L Total Protein 6.4 GM/DL Albumin 3.5 GM/DL Administered Medications Medications (Trade) Dose Ordered Sig/Danny Route PRN Reason Start Time Stop Time Status Last Admin Dose Admin IV Flush (NS Flush) 2 ml BID IV FLUSH 08/07/16 09:00 08/13/16 08:37 Chlorhexidine Gluconate (Chlorhexidine 2% Cloth) Taper DAILY@04 TOP 08/07/16 04:00 08/03/17 03:59 08/11/16 04:00 Clotrimazole (Lotrimin 1% Cream) 1 applic Q12HR TOPICAL 08/07/16 09:00 08/28/16 08:59 08/12/16 21:00 Nystatin (Mycostatin Liq) 5 ml QID SWAB 08/07/16 09:00 08/13/16 08:35 Melatonin (Melatonin) 5 mg HS PO 08/09/16 21:00 08/12/16 21:19 Famotidine (Pepcid) 20 mg BID PO 08/11/16 21:00 08/13/16 08:36 Dexamethasone (Decadron) 4 mg Q6HR PRN PO 08/12/16 14:30 08/13/16 08:36 Aspirin (Aspirin Chew) 81 mg DAILY PO 08/13/16 09:00 08/13/16 08:35 Objective Remarks GENERAL: Younger male, sitting up in bed speaking with visitors. SKIN: Warm and dry. HEAD: Normocephalic. EYES: No injection or drainage. NECK: Supple, trachea midline. CARDIOVASCULAR: +S1/S2. RESPIRATORY: Lungs clear, diminished. No accessory muscle use. GASTROINTESTINAL: Soft, non-tender. EXTREMITIES: No cyanosis, or edema. NEUROLOGICAL: No obvious focal deficit. Awake, alert, and oriented x3. 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 His INR is 1.8 today. We will restart the Lovenox until this is therapeutic. Continue coumadin at 5mg. 2. There is no evidence of hemolysis based off blood work to suggest PNH. No evidence of malignancy with imaging. Unfortunately we still cannot offer this pt any guidance as to why he is having these repeat thromboses. He should continue with Coumadin lifelong. 3. D/C Lovenox once INR is therapeutic. Daily PT/INR. 4. Continue supportive care with rehabilitation. Attending Statement The exam, history, and the medical decision-making described in the above note were completed with the assistance of the mid-level provider. I reviewed and agree with the findings presented. I attest that I had a [id number] encounter with the patient on the same day, and personally performed and documented my assessment and findings in the medical record. Ct scans- no evidence malignancy, no evidence of hemolysis Have spoken with Dr. Shaw, patient and patient's mom. Will hold discharge until tomorrow and continue lovenex. Hopefully inr therapeutic tomorrow and can avoid outpatient lovenex. I do not want to take risks in this young man presently taking lovenex, coumadin and aspirin. Helene Evans Aug 13, 2016 11:49 Hans Toro MD Aug 13, 2016 16:36 Helene Evans Aug 13, 2016 11:49 Hans Toro MD Aug 13, 2016 16:36
[2016-08-13] MEDS: ENOXAPARIN SODIUM 80 MG/0.8 ML SYRINGE SQ SCH ×2 (12:42→21:16)
--- NOTE | 2016-08-13 14:49 | MB ---
cc: TONYA JESUS MD DATE OF CONSULTATION: 08/13/2016. HISTORY OF PRESENT ILLNESS: Mr. 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 He is being evaluated for hypercoagulable state. He denies any chest pain or shortness of breath. He has episodes of bradycardia in the 40s mostly during sleep. No significant symptoms related to his bradycardia. PAST MEDICAL HISTORY: His past medical history is positive for: 1. DVT and PE. 2. No history of hypertension. 3. Diabetes mellitus. 4. Coronary artery disease. 5. CVA. MEDICATIONS: 1. Warfarin. 2. Lovenox. 3. Aspirin. 4. Decadron. 5. Pepcid. 6. Melatonin. ALLERGIES: 1. CODEINE. 2. PENICILLIN. SOCIAL HISTORY: He is a smoker. He does not drink alcohol. FAMILY HISTORY: Family history is positive for heart disease. REVIEW OF SYSTEMS: His review of systems is otherwise negative. PHYSICAL EXAMINATION: VITAL SIGNS: Blood pressure 120/70, pulse 80 and regular. HEAD, EYES, EARS, NOSE, THROAT: Negative. NECK: 2+ carotid upstrokes, no bruits. LUNGS: Clear. HEART: Regular with no murmurs, rubs or gallops. ABDOMEN: Abdomen soft. No bruits. EXTREMITIES: 2+ distal pulses. NEUROLOGIC: Mild left-sided weakness and slurred speech. EKG: EKG was reviewed and showed sinus bradycardia, normal axis and complete right bundle-branch block. LABS: Hemoglobin 12.9. Potassium 4.0, creatinine 0.7. AST 33 and ALT 57. DIAGNOSIS: 1. 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 2. Hypercoagulable state. 3. History of DVT/PE. 4. Sinus bradycardia, asymptomatic. 5. Smoking. DISPOSITION: Mr. Sales was found to have asymptomatic bradycardia. His echocardiogram showed preserved left ventricular systolic function. At this time, no further cardiac evaluation is necessary. Recommend to continue his current medical program including therapy with warfarin and aspirin for his unexplained basilar artery thrombosis. This was discussed with the patient and his . MD FRANCOIS Wagoner/ELISABETH /2:19 PM /2:43 PM MTDShannan
[2016-08-13] MEDS ORDERED: SERO25TA PO (15:13)
[2016-08-13] MEDS ORDERED: WARF-20 PO (15:13)
[2016-08-13] MEDS ORDERED: ASPI81TA11 PO (15:13)
--- NOTE | 2016-08-13 15:17 | HHI.DS ---
Discharge Summary Admission Date Aug 06, 2016 at 22:24 Discharge Date: Aug 13, 2016 Admitting Diagnosis Basilar artery Thrombus with ischemic stroke (1) Thrombotic stroke involving basilar artery ICD Code: I63.02 Diagnosis: Principal (2) Hx of deep venous thrombosis ICD Code: Z86.718 (3) Hx of pulmonary embolus ICD Code: Z86.711 Procedures Echo 08/07/2016 - Left ventricle: The cavity size was normal. Wall thickness was normal. Systolic function was normal. The estimated ejection fraction was in the range of 55% to 60%. Wall motion was normal; there were no regional wall motion abnormalities. - Aortic valve: Valve area: 1.88cm^2(VTI). Valve area: 1.77cm^2 (Vmax). Brief History - From Admission 36 yo WM who presents to [facility] ED with acute ischemic stroke. 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 Patient states he got up at around 14:30 on 08/06 to go to the bathroom and he fell and could not get up. He began texting his while she was at work and the texts were unusual. . So she called [facility] and they went to his home and he had slurred speech and reportedly refused transport. He then communicated to his "something is wrong, I need help". She arrived at his home and he was on the ground with L facial droop and L hemiparesis. [facility] was summoned again and he was taken to [facility] where he was found to be drowsy but able to follow commands. He had nystagmus and L hemiplegia. He complained of right sided headache. CT brain demonstrated basilar artery hyperdensity. CTA demonstrated thrombus within the distal basilar artery. Dr. Potter in ED discussed with Dr. Soria on several occasions. Patient was felt to not be a candidate for systemic thrombolytic due to onset of symptoms. Case was discussed with Dr. Mccoy with interventional radiology who deferred intervention as patient was felt to have collateral flow and there was concern for intervention resulting in distal showering of thrombus that might compromise this collateral circulation. MRI was also obtained which demonstrated restricted diffusion in the brainstem, greater on the right consistent with acute infarction. Dr. Soria and Dr. Mccoy agreed with initiation of heparin drip per ischemic stroke protocol which has been initiated. Patients indicates his neuro exam appears to be improving since arrival, i.e he is able to move his L arm and L leg some. His BP is 91/51 with heart rate sinus arrhythmia in 40s. I am placing CVL and initiating Levophed to target SBP 165-[address] Soria. Patient has had no witnessed seizure activity. Patient h/o unprovoked PE in 01/2016 and underwent hypercoagulable workup at that time that was negative (APL ab, Factor V Leiden, Mixing study, Protein C/S , Antithrombin III, JAK2, prothrombin gene mutation). He was on Xarelto for several months afterwards but did not quite complete full 6 months of recommended anticoagulant therapy. His mother indicated he may have h/o septal defect but it is unclear when this was diagnosed. TTE at this facility did not suggest and he has not had RIGOBERTO at this facility. He was hospitalized in ICU in [facility] 2 years ago for respiratory symptoms. CBC/BMP: 08/13/16 0442 08/13/16 0442 Significant Findings Laboratory Tests Test 08/11/16 08/12/16 08/13/16 04:55 03:10 04:42 Red Blood Count 4.47 MIL/MM3 (4.50-5.90) Hemoglobin 12.8 GM/DL 12.9 GM/DL (13.0-17.0) (13.0-17.0) Hematocrit 37.6 % 38.8 % 38.7 % (39.0-51.0) (39.0-51.0) (39.0-51.0) Prothrombin Time 20.7 SEC 31.9 SEC 19.0 SEC (9.8-11.6) (9.8-11.6) (9.8-11.6) Chloride Level 111 MEQ/L 110 MEQ/L 110 MEQ/L (98-107) (98-107) (98-107) White Blood Count 13.9 TH/MM3 15.0 TH/MM3 (4.0-11.0) (4.0-11.0) Random Glucose 139 MG/DL 121 MG/DL (74-106) (74-106) Haptoglobin 201 MG/DL (30-200) Imaging Last Impressions Chest CT 08/12/16 0000 Signed Impressions: Service Date/Time: Friday, August 12, 2016 17:58 - CONCLUSION: 1. Negative for metastatic disease. No acute findings. Ayo Butler MD Abdomen/Pelvis CT 08/12/16 0000 Signed Impressions: Service Date/Time: Friday, August 12, 2016 17:58 - CONCLUSION: Normal examination. Ayo Butler MD Chest X-Ray 08/07/16 Signed Impressions: Service Date/Time: Sunday, August 07, 2016 00:52 - CONCLUSION: Right jugular line placement. Frederic Kaplan MD Brain MRI 08/06/162117 Signed Impressions: Service Date/Time: Saturday, August 06, 2016 21:47 - CONCLUSION: 1. There is some very subtle restricted diffusion in the brainstem greater on the right consistent with acute infarction. 2. Otherwise unremarkable MRI of the brain. Elder Islas MD Head CTA 08/06/162020 Signed Impressions: Service Date/Time: Saturday, August 06, 2016 20:21 - CONCLUSION: 1. Small thrombus within the distal basilar artery measuring 7 x 4 mm. 2. Otherwise unremarkable CTA brain. Dr Potter notified of these findings at 8: 57pm. Elder Islas MD Neck CTA 08/06/16 Signed Impressions: Service Date/Time: Saturday, August 06, 2016 20:21 - CONCLUSION: 1. Normal CTA carotid arteries. No thrombus or aneurysm. 2. There is thrombus in the basilar artery Elder Islas MD Head CT 08/06/16 Signed Impressions: Service Date/Time: Saturday, August 06, 2016 20:21 - CONCLUSION: Minimal high density in the basilar artery, otherwise unremarkable CT brain. CTA brain recommended. Elder Islas MD PE at Discharge GENERAL: Alert, oriented x 3. Speech somewhat slurred but improved per family. SKIN: Warm and dry. HEAD: Normocephalic. EYES: No scleral icterus. No injection or drainage. Left nerve palsy. Pupils equal and reactive to light. NECK: Supple, trachea midline. No JVD or lymphadenopathy. CARDIOVASCULAR: Regular rate and rhythm without murmurs, gallops, or rubs. RESPIRATORY: Breath sounds equal bilaterally. No accessory muscle use. GASTROINTESTINAL: Abdomen soft, non-tender, nondistended. MUSCULOSKELETAL: No cyanosis, or edema. BACK: Nontender without obvious deformity. No CVA tenderness. Pt Condition on Discharge: Good Discharge Disposition: Disch w/ Home Health Serv Discharge Time: > 30 minutes Discharge Instructions DIET: Follow Instructions for: Heart Healthy Diet Speech Therapy-Diet Recommends: Soft Activities you can perform: Regular-No Restrictions Follow up Referrals: Neurology - 2 Weeks with Mariana Soria MD Oncology - 2 Weeks with Cholo Bolanos MD PCP Follow-up - 3-5 Days New Orders: PT/INR - Next Day New Medications: Aspirin DR (Aspirin EC) 81 Mg Tabdr 81 MG PO DAILY Blood Clot Prevention #90 Ref 0 TAB Quetiapine (Seroquel) 25 Mg Tab 25 MG PO HS Insomnia #30 Ref 0 TAB Warfarin (Warfarin) 4 Mg Tab 4 MG PO DAILY Blood Clot Prevention #30 Ref 0 TAB Francois Shaw DO Aug 13, 2016 15:17
--- NOTE | 2016-08-13 15:19 | HHI.FF ---
Face to Face Verification Diagnosis: (1) Thrombotic stroke involving basilar artery (2) Pulmonary embolism (3) DVT (deep venous thrombosis) Physical Therapy Order: Evaluate and Treat, Improve ambulation, Strength and gait training Occupational Therapy Order: Evaluate and Treat, Improve ADL, Gross motor coordination, Fine motor coordination Speech Therapy Order: To Improve: Speech and communication skills Home Health Nursing Order: Medical education Signs/symptoms of disease process Medication education-adverse effect Nursing assessment with vital signs Instructions: PT/INR on 08/14/2016 and again on 08/17/2016. I have seen patient Kenney Sales on 08/13/16. My clinical findings support the need for the requested home health care services because: Deconditioned w/ increased weakness Limited ability to care for self Need for psychosocial assistance High risk of falls I certify that my clinical findings support that this patient is homebound because: Unsteady gait/balance Unsafe to leave home unassisted Need for psychosocial assistance Unable to use public transportation Francois Shaw DO Aug 13, 2016 15:19
[2016-08-13] MEDS ORDERED: WARFARIN SOD 4 MG TAB PO SCH (16:00)
[2016-08-13] MEDS ORDERED: ENOXAPARIN SODIUM 30 MG/0.3 ML SYRINGE SQ ONE (16:30)
[2016-08-13] MEDS: WARFARIN SOD 5 MG TAB PO SCH (17:24)
[2016-08-13] MEDS: MELATONIN 5 MG TAB PO SCH (21:15)
[2016-08-13] MEDS ORDERED: QUEtiapine FUMARATE 25 MG TAB PO ONE (23:00)
--- NOTE | 2016-08-13 23:17 | HHI.PR ---
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 Mr. Saels becomes emotional but wants to go home. Denies any new symptoms. No fever, chills. Family at bedside. Objective Vitals Vital Signs Date Time Temp Pulse Resp B/P Pulse Ox O2 Delivery O2 Flow Rate FiO2 08/13/16 18:00 48 08/13/16 12:11 97.5 80 18 120/70 97 08/13/16 10:46 97 21 08/13/16 08:11 98.6 95 18 138/72 98 08/13/16 05:30 98.1 69 18 131/79 96 08/13/16 00:30 97.1 62 16 120/75 96 I/O 08/12/16 08/12/16 08/12/16 08/13/16 08/13/16 08/13/16 07:00 15:00 23:00 07:00 15:00 23:00 Intake Total 10 ml 800 ml Output Total 250 ml Balance -240 ml 800 ml Intake Oral 800 ml IV Total 10 ml Output Urine Total 250 ml # Voids 1 1 3 # Bowel Movements 0 1 Result Diagram: 08/13/16 0442 08/13/16 0442 Imaging Last Impressions Chest CT 08/12/16 0000 Signed Impressions: Service Date/Time: Friday, August 12, 2016 17:58 - CONCLUSION: 1. Negative for metastatic disease. No acute findings. Ayo Butler MD Abdomen/Pelvis CT 08/12/16 0000 Signed Impressions: Service Date/Time: Friday, August 12, 2016 17:58 - CONCLUSION: Normal examination. Ayo Butler MD Chest X-Ray 08/07/16 0000 Signed Impressions: Service Date/Time: Sunday, August 07, 2016 00:52 - CONCLUSION: Right jugular line placement. Frederic Kaplan MD Brain MRI 08/06/162117 Signed Impressions: Service Date/Time: Saturday, August 06, 2016 21:47 - CONCLUSION: 1. There is some very subtle restricted diffusion in the brainstem greater on the right consistent with acute infarction. 2. Otherwise unremarkable MRI of the brain. Elder Islas MD Head CTA 08/06/162020 Signed Impressions: Service Date/Time: Saturday, August 06, 2016 20:21 - CONCLUSION: 1. Small thrombus within the distal basilar artery measuring 7 x 4 mm. 2. Otherwise unremarkable CTA brain. Dr Potter notified of these findings at 8: 57pm. Elder Islas MD Neck CTA 08/06/16 0000 Signed Impressions: Service Date/Time: Saturday, August 06, 2016 20:21 - CONCLUSION: 1. Normal CTA carotid arteries. No thrombus or aneurysm. 2. There is thrombus in the basilar artery Elder Islas MD Head CT 08/06/16 0000 Signed Impressions: Service Date/Time: Saturday, August 06, 2016 20:21 - CONCLUSION: Minimal high density in the basilar artery, otherwise unremarkable CT brain. CTA brain recommended. Elder Islas MD Objective Remarks GENERAL: Alert, oriented x 3. Speech somewhat slurred but improved per family. SKIN: Warm and dry. HEAD: Normocephalic. EYES: No scleral icterus. No injection or drainage. Left nerve palsy. Pupils equal and reactive to light. NECK: Supple, trachea midline. No JVD or lymphadenopathy. CARDIOVASCULAR: Regular rate and rhythm without murmurs, gallops, or rubs. RESPIRATORY: Breath sounds equal bilaterally. No accessory muscle use. GASTROINTESTINAL: Abdomen soft, non-tender, nondistended. MUSCULOSKELETAL: No cyanosis, or edema. BACK: Nontender without obvious deformity. No CVA tenderness. Procedures Echo 08/07/2016 - Left ventricle: The cavity size was normal. Wall thickness was normal. Systolic function was normal. The estimated ejection fraction was in the range of 55% to 60%. Wall motion was normal; there were no regional wall motion abnormalities. - Aortic valve: Valve area: 1.88cm^2(VTI). Valve area: 1.77cm^2 (Vmax). A/P Problem List: (1) Thrombotic stroke involving basilar artery ICD Code: I63.02 Status: Acute (2) Hx of deep venous thrombosis ICD Code: Z86.718 Status: Acute (3) Hx of pulmonary embolus ICD Code: Z86.711 Status: Acute Assessment and Plan Mr. 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 Neurology and interventional radiology were contacted who recommended against any invasive intervention including TPA. Patient was managed in the ICU and was transferred to the hospitalist service on 08/12/2016. Patient was discharged. However, after discussing with Dr. Toro, we decided to hold the discharge today. I appreciate Dr. Toro's input. We would like to keep INR > 2. If INR > 2.0 tomorrow, patient does not need to continue Lovenox any further. Moreover, tomorrow CM can arrange home health to continue speech therapy as well monitor PT/INR by home health and patient's PCP at [facility]. - Thrombotic stroke involving basilar artery - Hematology, Neurology following. - Continue Warfarin. INR 1.7 today. Unfortunately, Warfarin was held yesterday instead of reducing the dose. - Continue aspirin to 81mg Qday. - Blood pressure with reasonable range. No need for anti-hypertensives at this point. - History of unprovoked DVT and later PE - Continue Warfarin lifelong. - Substance abuse - discussed with patient regarding importance of not abusing any drugs. - Headache - Tylenol and if headache is severe, Decadron. - Probable discharge home tomorrow to continue home health speech/OT or outpatient speech/OT. Full code. Warfarin INR 1.7. Patient received a dose of Lovenox today per hematology. Francois Shaw DO Aug 13, 2016 23:17
[2016-08-14] VITALS: BP 128/80; PULSE 64; RESP 18; TEMP 97.9; O2SAT 97
[2016-08-14] MEDS: CHLORHEXIDINE GLUCONATE 2 % 1 PACK (2 CLOTHS) TOP SCH (04:00)
[2016-08-14 05:30] VITALS: BP 118/88; PULSE 58; RESP 20; TEMP 98.8; O2SAT 96
[2016-08-14 05:50] LABS: HEMATOCRIT 40.1 % (39.0-51.0); MEAN CELL VOLUME 85.5 FL (80.0-100.0); MEAN CORPUSCULAR HEMOGLOBIN 27.7 PG (27.0-34.0); MEAN CORPUSCULAR HGB CONC 32.3 % (32.0-36.0); PLATELET COUNT 205 TH/MM3 (150-450); RED BLOOD COUNT 4.69 MIL/MM3 (4.50-5.90); RED CELL DISTRIBUTION WIDTH 14.3 % (11.6-17.2); REVIEW FLAG FINAL; WHITE BLOOD COUNT 16.3 TH/MM3 (4.0-11.0)
[2016-08-14 05:54] LABS: INTERNATIONAL NORMALIZED RATIO 1.3 RATIO; PROTHROMBIN TIME - PATIENT 14.9 SEC (9.8-11.6)
[2016-08-14 06:28] LABS: BICARBONATE 27.8 MEQ/L (21.0-32.0); POTASSIUM 4.1 MEQ/L (3.5-5.1)
[2016-08-14 07:46] VITALS: O2SAT 98
[2016-08-14 08:00] VITALS: BP 137/76; PULSE 52; RESP 20; TEMP 97.5; O2SAT 97
[2016-08-14] MEDS: NYSTATIN SUSP 500,000 U/5 ML CUP SWAB SCH ×3 (09:00→18:00)
[2016-08-14] MEDS: SODIUM CHLORIDE 0.9% FLUSH 5 ML FLUSH IV FLUSH SCH (10:11)
[2016-08-14] MEDS: CLOTRIMAZOLE 1% CREAM 15 GM TOPICAL SCH (10:11)
[2016-08-14] MEDS: FAMOTIDINE 20 MG TAB PO SCH (10:15)
[2016-08-14] MEDS: DEXAMETHASONE 4 MG TAB PO PRN ×2 (10:16→16:58)
[2016-08-14] MEDS: ASPIRIN 81 MG CHEW TAB PO SCH (10:16)
[2016-08-14] MEDS: ENOXAPARIN SODIUM 80 MG/0.8 ML SYRINGE SQ SCH (10:17)
--- NOTE | 2016-08-14 10:58 | PD.ONC.PN ---
Subjective Subjective Remarks Afebrile overnight. Patient eager to know when he can go home. Mother at bedside. No bleeding. Objective Data Date Time Temp Pulse Resp B/P Pulse Ox O2 Delivery O2 Flow Rate FiO2 08/14/16 08:00 97.5 52 20 137/76 97 08/14/16 07:46 98 21 08/14/16 05:30 98.8 58 20 118/88 96 08/14/16 00:00 97.9 64 18 128/80 97 08/13/16 20:00 97.1 65 17 138/82 98 08/13/16 18:00 48 08/13/16 12:11 97.5 80 18 120/70 97 08/14/16 08/14/16 08/14/16 07:00 15:00 23:00 Intake Total 800 ml Balance 800 ml Result Diagram: 08/14/1652108/14/16521 Laboratory Results Laboratory Tests Test 08/14/16 05:22 White Blood Count 16.3 TH/MM3 Red Blood Count 4.69 MIL/MM3 Hemoglobin 13.0 GM/DL Hematocrit 40.1 % Mean Corpuscular Volume 85.5 FL Mean Corpuscular Hemoglobin 27.7 PG Mean Corpuscular Hemoglobin 32.3 % Concent Red Cell Distribution Width 14.3 % Platelet Count 205 TH/MM3 Mean Platelet Volume 10.0 FL Prothrombin Time 14.9 SEC Prothromb Time International 1.3 RATIO Ratio Sodium Level 143 MEQ/L Potassium Level 4.1 MEQ/L Chloride Level 107 MEQ/L Carbon Dioxide Level 27.8 MEQ/L Anion Gap 8 MEQ/L Blood Urea Nitrogen 17 MG/DL Creatinine 0.73 MG/DL Estimat Glomerular Filtration 123 ML/MIN Rate Random Glucose 119 MG/DL Calcium Level 9.0 MG/DL Administered Medications Medications (Trade) Dose Ordered Sig/Danny Route PRN Reason Start Time Stop Time Status Last Admin Dose Admin IV Flush (NS Flush) 2 ml BID IV FLUSH 08/07/16 09:00 08/14/16 10:11 Chlorhexidine Gluconate (Chlorhexidine 2% Cloth) Taper DAILY@04 TOP 08/07/16 04:00 08/03/17 03:59 08/11/16 04:00 Clotrimazole (Lotrimin 1% Cream) 1 applic Q12HR TOPICAL 08/07/16 09:00 08/28/16 08:59 08/14/16 10:11 Nystatin (Mycostatin Liq) 5 ml QID SWAB 08/07/16 09:00 08/13/16 21:15 Melatonin (Melatonin) 5 mg HS PO 08/09/16 21:00 08/13/16 21:15 Acetaminophen (Tylenol) 650 mg Q6H PRN PO Pain 1-4, headache, fever 08/11/16 08:15 08/13/16 14:17 Famotidine (Pepcid) 20 mg BID PO 08/11/16 21:00 08/14/16 10:15 Dexamethasone (Decadron) 4 mg Q6HR PRN PO 08/12/16 14:30 08/14/16 10:16 Aspirin (Aspirin Chew) 81 mg DAILY PO 08/13/16 09:00 08/14/16 10:16 Warfarin Sodium (Coumadin) 5 mg DAILY@1600 PO 08/13/16 16:00 08/13/16 17:24 Enoxaparin Sodium (Lovenox Inj) 80 mg BID SQ 08/13/16 11:30 08/14/16 10:17 Objective Remarks GENERAL: Young man, sitting up in bed, dysarthric speech SKIN: Warm and dry. HEAD: Normocephalic. EYES: No injection or drainage. NECK: Supple, trachea midline. CARDIOVASCULAR: Regular rate and rhythm RESPIRATORY: Breath sounds equal bilaterally. No accessory muscle use. GASTROINTESTINAL: Abdomen soft, non-tender, nondistended. EXTREMITIES: No cyanosis NEUROLOGICAL: awake and alert, able to move extremities. facial movements symmetric. +dysarthric speech. Assessment/Plan Assessment 36y/o male with h/o DVT + PE, admitted with basilar artery thrombosis Plan 1. continue Lovenox bridge to Coumadin +ASA. INR =1.3 today. The patient reports drinking some ensure yesterday. It is possible the vitamin K in the ensure helped reverse his INR. Either way, he will need to continue on the Lovenox as long as the INR is subtherapeutic. He could be discharged on the Lovenox bridge to Coumadin, but there would need to be someone to follow his INR outpatient, which could be difficult as [facility]. 2. [facility] discussed [facility] the [facility]. I have asked the caseworker protective services to assist in this process. The patient and his mother state they already have [facility] soon as he is discharged. Joyce Jimenez Aug 14, 2016 10:58
[2016-08-14 12:00] VITALS: BP 117/72; PULSE 60; RESP 20; TEMP 97; O2SAT 98
[2016-08-14] MEDS ORDERED: ENOX80P SQ (12:25)
--- NOTE | 2016-08-14 12:43 | HHI.PR ---
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 Mr. Sales is doing well. Family members are in the room. He badly wanted to go home today. Unfortunately, his INR is subtherapeutic. [facility] will [facility] only after INR is > 2.0. Objective Vitals Vital Signs Date Time Temp Pulse Resp B/P Pulse Ox O2 Delivery O2 Flow Rate FiO2 08/14/16 08:00 97.5 52 20 137/76 97 08/14/16 07:46 98 21 08/14/16 05:30 98.8 58 20 118/88 96 08/14/16 00:00 97.9 64 18 128/80 97 08/13/16 20:00 97.1 65 17 138/82 98 08/13/16 18:00 48 I/O 08/13/16 08/13/16 08/13/16 08/14/16 08/14/16 08/14/16 07:00 15:00 23:00 07:00 15:00 23:00 Intake Total 800 ml 1200 ml 800 ml Balance 800 ml 1200 ml 800 ml Intake Oral 800 ml 1200 ml 800 ml # Voids 3 3 2 # Bowel Movements 1 0 0 Result Diagram: 08/14/16 0508/14/16 0522 Imaging Last Impressions Chest CT 08/12/16 0000 Signed Impressions: Service Date/Time: Friday, August 12, 2016 17:58 - CONCLUSION: 1. Negative for metastatic disease. No acute findings. Ayo Butler MD Abdomen/Pelvis CT 08/12/16 0000 Signed Impressions: Service Date/Time: Friday, August 12, 2016 17:58 - CONCLUSION: Normal examination. Ayo Butler MD Chest X-Ray 08/07/16 0000 Signed Impressions: Service Date/Time: Sunday, August 07, 2016 00:52 - CONCLUSION: Right jugular line placement. Frederic Kaplan MD Brain MRI 08/06/162117 Signed Impressions: Service Date/Time: Saturday, August 06, 2016 21:47 - CONCLUSION: 1. There is some very subtle restricted diffusion in the brainstem greater on the right consistent with acute infarction. 2. Otherwise unremarkable MRI of the brain. Elder Islas MD Head CTA 08/06/162020 Signed Impressions: Service Date/Time: Saturday, August 06, 2016 20:21 - CONCLUSION: 1. Small thrombus within the distal basilar artery measuring 7 x 4 mm. 2. Otherwise unremarkable CTA brain. Dr Potter notified of these findings at 8: 57pm. Elder Islas MD Neck CTA 08/06/16 0000 Signed Impressions: Service Date/Time: Saturday, August 06, 2016 20:21 - CONCLUSION: 1. Normal CTA carotid arteries. No thrombus or aneurysm. 2. There is thrombus in the basilar artery Elder Islas MD Head CT 08/06/16 0000 Signed Impressions: Service Date/Time: Saturday, August 06, 2016 20:21 - CONCLUSION: Minimal high density in the basilar artery, otherwise unremarkable CT brain. CTA brain recommended. Elder Islas MD Objective Remarks GENERAL: Alert, oriented x 3. Speech somewhat slurred but improved per family. SKIN: Warm and dry. HEAD: Normocephalic. EYES: No scleral icterus. No injection or drainage. Left nerve palsy. Pupils equal and reactive to light. NECK: Supple, trachea midline. No JVD or lymphadenopathy. CARDIOVASCULAR: Regular rate and rhythm without murmurs, gallops, or rubs. RESPIRATORY: Breath sounds equal bilaterally. No accessory muscle use. GASTROINTESTINAL: Abdomen soft, non-tender, nondistended. MUSCULOSKELETAL: No cyanosis, or edema. BACK: Nontender without obvious deformity. No CVA tenderness. Procedures Echo 08/07/2016 - Left ventricle: The cavity size was normal. Wall thickness was normal. Systolic function was normal. The estimated ejection fraction was in the range of 55% to 60%. Wall motion was normal; there were no regional wall motion abnormalities. - Aortic valve: Valve area: 1.88cm^2(VTI). Valve area: 1.77cm^2 (Vmax). A/P Problem List: (1) Thrombotic stroke involving basilar artery ICD Code: I63.02 Status: Acute (2) Hx of deep venous thrombosis ICD Code: Z86.718 Status: Acute (3) Hx of pulmonary embolus ICD Code: Z86.711 Status: Acute Assessment and Plan Mr. 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 Neurology and interventional radiology were contacted who recommended against any invasive intervention including TPA. Patient was managed in the ICU and was transferred to the hospitalist service on 08/12/2016. Patient was discharged. However, after discussing with Dr. Toro, we decided to hold the discharge today. I appreciate Dr. Toro's input. We would like to keep INR > 2. If INR > 2.0 tomorrow, patient does not need to continue Lovenox any further. Moreover, tomorrow CM can arrange home health to continue speech therapy as well monitor PT/INR by home health and patient's PCP at [facility]. - Thrombotic stroke involving basilar artery - Hematology, Neurology following. - Continue Warfarin. INR 1.3 today. Discussed with Pharmacy. Patient will receive 5mg + 2.5mg of Warfarin today. - Continue Lovenox 1mg/kg Q12hrs. - Continue aspirin to 81mg Qday. - Blood pressure with reasonable range. No need for anti-hypertensives at this point. - History of unprovoked DVT and later PE - Continue Warfarin lifelong. - Substance abuse - On 08/13/2016, discussed with patient regarding importance of not abusing any drugs. - Headache - Tylenol and if headache is severe, Decadron. - Probable discharge home tomorrow if INR > 2.0 Full code. Warfarin INR 1.3, Lovenox full dose. Francois Shaw DO Aug 14, 2016 12:43
--- NOTE | 2016-08-14 13:56 | PD.CARD.PN ---
Subjective Subjective Remarks No CP or SOB, mild tong asymptomatic Objective Medications Current Medications Medications (Trade) Dose Ordered Sig/Danny Route Start Time Stop Time Status Last Admin (NS Flush) 2 ml UNSCH PRN IV FLUSH 08/07/16 00:15 (NS Flush) 2 ml BID IV FLUSH 08/07/16 09:00 08/14/16 10:11 (Zofran Inj) 4 mg Q6H PRN IV 08/07/16 00:15 Miscellaneous Information 1 Q361D XX 08/07/16 00:15 (Chlorhexidine 2% Cloth) Taper DAILY@04 TOP 08/07/16 04:00 08/03/17 03:59 08/11/16 04:00 (Chlorhexidine 2% Cloth) 3 pack UNSCH PRN TOP 08/07/16 00:15 (Lotrimin 1% Cream) 1 applic Q12HR TOPICAL 08/07/16 09:00 08/28/16 08:59 08/14/16 10:11 Nystatin 5 ml 5 ml QID SWAB 08/07/16 09:00 08/13/16 21:15 (Coumadin Consult Pharmacy) 0 ml @ 0 mls/hr UNSCH OTHER 08/09/16 18:15 (Melatonin) 5 mg HS PO 08/09/16 21:00 08/13/16 21:15 (Tylenol) 650 mg Q6H PRN PO 08/11/16 08:15 08/13/16 14:17 (Pepcid) 20 mg BID PO 08/11/16 21:00 08/14/16 10:15 (Decadron) 4 mg Q6HR PRN PO 08/12/16 14:30 08/14/16 10:16 (Aspirin Chew) 81 mg DAILY PO 08/13/16 09:00 08/14/16 10:16 (Coumadin) 5 mg DAILY@1600 PO 08/13/16 16:00 08/13/16 17:24 (Lovenox Inj) 80 mg BID SQ 08/13/16 11:30 08/14/16 10:17 (Coumadin) 2.5 mg ONCE PO 08/14/16 16:00 08/14/16 21:00 Vital Signs / I&O Vital Signs Date Time Temp Pulse Resp B/P Pulse Ox O2 Delivery O2 Flow Rate FiO2 08/14/16 12:00 97.0 60 20 117/72 98 08/14/16 08:00 97.5 52 20 137/76 97 08/14/16 07:46 98 21 08/14/16 05:30 98.8 58 20 118/88 96 08/14/16 00:00 97.9 64 18 128/80 97 08/13/16 20:00 97.1 65 17 138/82 98 08/13/16 18:00 48 I/O 08/13/16 08/13/16 08/13/16 08/14/16 08/14/16 08/14/16 07:00 15:00 23:00 07:00 15:00 23:00 Intake Total 800 ml 1200 ml 800 ml Balance 800 ml 1200 ml 800 ml Intake Oral 800 ml 1200 ml 800 ml # Voids 3 3 2 # Bowel Movements 1 0 0 Physical Exam GENERAL: In NAD SKIN: Warm and dry. HEAD: Normocephalic. EYES: No scleral icterus. No injection or drainage. NECK: Supple, trachea midline. No JVD or lymphadenopathy. CARDIOVASCULAR: Regular rate and rhythm without murmurs, gallops, or rubs. RESPIRATORY: Breath sounds equal bilaterally. No accessory muscle use. GASTROINTESTINAL: Abdomen soft, non-tender, nondistended. MUSCULOSKELETAL: No cyanosis, or edema. Laboratory Laboratory Tests Test 08/14/16 05:22 White Blood Count 16.3 TH/MM3 Red Blood Count 4.69 MIL/MM3 Hemoglobin 13.0 GM/DL Hematocrit 40.1 % Mean Corpuscular Volume 85.5 FL Mean Corpuscular Hemoglobin 27.7 PG Mean Corpuscular Hemoglobin 32.3 % Concent Red Cell Distribution Width 14.3 % Platelet Count 205 TH/MM3 Mean Platelet Volume 10.0 FL Prothrombin Time 14.9 SEC Prothromb Time International 1.3 RATIO Ratio Sodium Level 143 MEQ/L Potassium Level 4.1 MEQ/L Chloride Level 107 MEQ/L Carbon Dioxide Level 27.8 MEQ/L Anion Gap 8 MEQ/L Blood Urea Nitrogen 17 MG/DL Creatinine 0.73 MG/DL Estimat Glomerular Filtration 123 ML/MIN Rate Random Glucose 119 MG/DL Calcium Level 9.0 MG/DL Imaging Last Impressions Chest CT 08/12/16 0000 Signed Impressions: Service Date/Time: Friday, August 12, 2016 17:58 - CONCLUSION: 1. Negative for metastatic disease. No acute findings. Ayo Butler MD Abdomen/Pelvis CT 08/12/16 0000 Signed Impressions: Service Date/Time: Friday, August 12, 2016 17:58 - CONCLUSION: Normal examination. Ayo Butler MD Chest X-Ray 08/07/16 0000 Signed Impressions: Service Date/Time: Sunday, August 07, 2016 00:52 - CONCLUSION: Right jugular line placement. Frederic Kaplan MD Brain MRI [id number]/06/[id number] Signed Impressions: Service Date/Time: Saturday, August 06, 2016 21:47 - CONCLUSION: 1. There is some very subtle restricted diffusion in the brainstem greater on the right consistent with acute infarction. 2. Otherwise unremarkable MRI of the brain. Elder Islas MD Head CTA 08/06/162020 Signed Impressions: Service Date/Time: Saturday, August 06, 2016 20:21 - CONCLUSION: 1. Small thrombus within the distal basilar artery measuring 7 x 4 mm. 2. Otherwise unremarkable CTA brain. Dr Potter notified of these findings at 8: 57pm. Elder Islas MD Neck CTA 08/06/16 0000 Signed Impressions: Service Date/Time: Saturday, August 06, 2016 20:21 - CONCLUSION: 1. Normal CTA carotid arteries. No thrombus or aneurysm. 2. There is thrombus in the basilar artery Elder Islas MD Head CT 08/06/16 0000 Signed Impressions: Service Date/Time: Saturday, August 06, 2016 20:21 - CONCLUSION: Minimal high density in the basilar artery, otherwise unremarkable CT brain. CTA brain recommended. Elder Islas MD Assessment and Plan Problem List: (1) Thrombotic stroke involving basilar artery (2) Hx of pulmonary embolus (3) Hx of deep venous thrombosis (4) Bradycardia Assessment and Plan Mild sinus tong asymptomatic. Continue tx for basilar artery thrombosis with warfarin and asa. Stable from cardiac standpoint. Needs to quit smoking. Perry Sandoval MD Aug 14, 2016 13:55
[2016-08-14 16:00] VITALS: BP 121/70; PULSE 72; RESP 20; TEMP 98.5; O2SAT 98
[2016-08-14] MEDS ORDERED: WARFARIN SOD 2.5 MG TAB PO SCH (16:00)
[2016-08-14] MEDS: WARFARIN SOD 5 MG TAB PO SCH (16:59)
--- NOTE | 2016-08-14 22:41 | HHI.PR ---
Review/Management Diagnosis 1. 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 2. Possible hypercoagulable state given the past medical history of pulmonary embolism and DVT and was on anticoagulation/Xarelto. 3. H/o pulmonary and DVT, d/c anticoagulation two months ago on his own decision 4. Arterial and venous thrombo-embolism 5. Opiate withdrawal as per medical records, of chewing and snorting Dilaudid Plan 1. 2. Neuro checks q. 1 hours. 3. Telemetry. 4. Continue Warfarin 5. Target INR >2 6. Maintain BP 135-140/75-80 7. PT/OT, recommendations are appreciated 8.Patient is stable from neurology standpoint, may follow up with neurology as outpatient once INR > 2. Diagnosis/Plan: Subjective Subjective Comments No acute events reported INR is subtherapeutic, hence discharge planning is delayed Patient with significant neurologic improvement Allergies Allergies Coded Allergies Codeine (Verified Allergy, Intermediate, RASH, 01/21/16) Penicillin (Verified Allergy, Intermediate, RASH, 01/21/16) Exam I&O / VS 08/13/16 08/13/16 08/14/16 15:00 23:00 07:00 Intake Total 1200 ml 800 ml Balance 1200 ml 800 ml Intake Oral 1200 ml 800 ml # Voids 3 2 # Bowel Movements 0 0 Vital Signs Date Time Temp Pulse Resp B/P Pulse Ox O2 Delivery O2 Flow Rate FiO2 08/14/16 16:00 98.5 72 20 121/70 98 08/14/16 12:00 97.0 60 20 117/72 98 08/14/16 08:00 97.5 52 20 137/76 97 08/14/16 07:46 98 21 08/14/16 05:30 98.8 58 20 118/88 96 08/14/16 00:00 97.9 64 18 128/80 97 Exam Comments GENERAL: The patient is awake, not in distress with mild slurred speech. HEENT: Atraumatic, normocephalic. Intact vision. Intact hearing. NECK: No signs of meningeal irritation. No carotid bruits. CARDIOVASCULAR: Regular rate and rhythm without any murmurs. LUNGS: Clear to auscultation. No wheezes. EXTREMITIES: No clubbing, no cyanosis. Mild left-sided ataxic weakness and upper and lower extremity. NEUROLOGIC: The patient is awake, alert, oriented to time, person and place. Slurred speech. No dysphasia. resolving MYRNA, subtle horizontal nystagmus to the left, left nerve palsy, mild dysarthria and tongue deviation. Left-sided upper and lower extremity shoulder abduction on the left side is 4+/5, elbow extension 4+/5, wrist extension 4/5, biceps 4+/5, left hip flexion 4/5, foot extension 4+/5. Right upper and lower extremity 5/5. Intact [id number] on the right upper extremity. Intact sensation bilateral and symmetrical. Objective Radiology Results Last [address] 08/12/16 0000 Signed Impressions: Service Date/Time: Friday, August 12, 2016 17:58 - CONCLUSION: 1. Negative for metastatic disease. No acute findings. Ayo Butler MD Abdomen/Pelvis CT 08/12/16 0000 Signed Impressions: Service Date/Time: Friday, August 12, 2016 17:58 - CONCLUSION: Normal examination. Ayo Butler MD Micro and Labs Laboratory Tests Test 08/14/16 05:22 White Blood Count 16.3 Red Blood Count 4.69 Hemoglobin 13.0 Hematocrit 40.1 Mean Corpuscular Volume 85.5 Mean Corpuscular Hemoglobin 27.7 Mean Corpuscular Hemoglobin 32.3 Concent Red Cell Distribution Width 14.3 Platelet Count 205 Mean Platelet Volume 10.0 Prothrombin Time 14.9 Prothromb Time International 1.3 Ratio Sodium Level 143 Potassium Level 4.1 Chloride Level 107 Carbon Dioxide Level 27.8 Anion Gap 8 Blood Urea Nitrogen 17 Creatinine 0.73 Estimat Glomerular Filtration 123 Rate Random Glucose 119 Calcium Level 9.0 Mariana Soria MD Aug 14, 2016 22:40
[2016-08-15] VITALS: BP 120/63; PULSE 62; RESP 20; TEMP 98.9; O2SAT 98
[2016-08-15] MEDS: ENOXAPARIN SODIUM 80 MG/0.8 ML SYRINGE SQ SCH ×2 (00:13→12:58)
[2016-08-15] MEDS ORDERED: DEXAMETHASONE 4 MG TAB PO PRN (00:15)
[2016-08-15] MEDS ORDERED: ONDANSETRON HCL 4 MG/2 ML VIAL IV PUSH PRN (00:15)
[2016-08-15] MEDS ORDERED: MELATONIN 5 MG TAB PO PRN (00:15)
[2016-08-15 04:00] VITALS: BP 118/73; PULSE 63; RESP 20; TEMP 97.8; O2SAT 97
[2016-08-15 06:36] LABS: INTERNATIONAL NORMALIZED RATIO 1.8 RATIO; PROTHROMBIN TIME - PATIENT 20.5 SEC (9.8-11.6)
[2016-08-15 08:00] VITALS: BP 129/70; PULSE 58; RESP 20; TEMP 98.2; O2SAT 93
[2016-08-15] MEDS: NYSTATIN SUSP 500,000 U/5 ML CUP SWISH-SWAL SCH ×2 (08:18→13:00)
[2016-08-15] MEDS ORDERED: FAMOTIDINE 20 MG TAB PO SCH (09:00)
[2016-08-15] MEDS ORDERED: ASPIRIN 81 MG CHEW TAB PO SCH (09:00)
[2016-08-15] MEDS ORDERED: ASPIRIN 325 MG TAB PO SCH (09:00)
[2016-08-15] MEDS ORDERED: CLOTRIMAZOLE 1% CREAM 15 GM TOPICAL SCH (09:00)
--- NOTE | 2016-08-15 09:51 | PD.CARD.PN ---
Subjective Subjective Remarks No CP or SOB, no symptomatic tong Objective Medications Current Medications Medications (Trade) Dose Ordered Sig/Danny Route Start Time Stop Time Status Last Admin (Coumadin) 5 mg DAILY@1600 PO 08/15/16 16:00 (Lovenox Inj) 80 mg Q12H SQ 08/15/16 00:15 08/15/16 00:13 (Mycostatin Liq) 5 ml QID SWISH-SWAL 08/15/16 09:00 08/15/16 08:18 (Melatonin) 5 mg HS PRN PO 08/15/16 00:15 08/15/16 00:17 (Pepcid) 20 mg BID PO 08/15/16 09:00 08/15/16 08:17 (Decadron) 4 mg Q6H PRN PO 08/15/16 00:15 08/15/16 08:16 (Lotrimin 1% Cream) 1 applic Q12HR TOPICAL 08/15/16 09:00 08/15/16 08:18 (Zofran Inj) 4 mg Q6H PRN IV PUSH 08/15/16 00:15 (Aspirin Chew) 81 mg DAILY PO 08/15/16 09:00 Vital Signs / I&O Vital Signs Date Time Temp Pulse Resp B/P Pulse Ox O2 Delivery O2 Flow Rate FiO2 08/15/16 08:00 98.2 58 20 129/70 93 08/15/16 04:00 97.8 63 20 118/73 97 08/15/16 00:00 98.9 62 20 120/63 98 08/14/16 16:00 98.5 72 20 121/70 98 08/14/16 12:00 97.0 60 20 117/72 98 I/O 08/14/16 08/14/16 08/14/16 08/15/16 08/15/16 08/15/16 06:59 14:59 22:59 06:59 14:59 22:59 Intake Total 800 ml 480 ml 0 ml 120 ml Balance 800 ml 480 ml 0 ml 120 ml Intake Oral 800 ml 480 ml 120 ml IV Total 0 ml # Voids 2 2 1 # Bowel Movements 0 0 Physical Exam GENERAL: In NAD SKIN: Warm and dry. HEAD: Normocephalic. EYES: No scleral icterus. No injection or drainage. NECK: Supple, trachea midline. No JVD or lymphadenopathy. CARDIOVASCULAR: Regular rate and rhythm without murmurs, gallops, or rubs. RESPIRATORY: Breath sounds equal bilaterally. No accessory muscle use. GASTROINTESTINAL: Abdomen soft, non-tender, nondistended. MUSCULOSKELETAL: No cyanosis, or edema. Laboratory Laboratory Tests Test 08/15/16 06:09 Prothrombin Time 20.5 SEC Prothromb Time International 1.8 RATIO Ratio Imaging Last Impressions Chest CT 08/12/16 0000 Signed Impressions: Service Date/Time: Friday, August 12, 2016 17:58 - CONCLUSION: 1. Negative for metastatic disease. No acute findings. Ayo Butler MD Abdomen/Pelvis CT 08/12/16 0000 Signed Impressions: Service Date/Time: Friday, August 12, 2016 17:58 - CONCLUSION: Normal examination. Ayo Butler MD Chest X-Ray 08/07/16 0000 Signed Impressions: Service Date/Time: Sunday, August 07, 2016 00:52 - CONCLUSION: Right jugular line placement. Frederic Kaplan MD Brain MRI 08/06/162117 Signed Impressions: Service Date/Time: Saturday, August 06, 2016 21:47 - CONCLUSION: 1. There is some very subtle restricted diffusion in the brainstem greater on the right consistent with acute infarction. 2. Otherwise unremarkable MRI of the brain. Elder Islas MD Head CTA 08/06/162020 Signed Impressions: Service Date/Time: Saturday, August 06, 2016 20:21 - CONCLUSION: 1. Small thrombus within the distal basilar artery measuring 7 x 4 mm. 2. Otherwise unremarkable CTA brain. Dr Potter notified of these findings at 8: 57pm. Elder Islas MD Neck CTA 08/06/16 Signed Impressions: Service Date/Time: Saturday, August 06, 2016 20:21 - CONCLUSION: 1. Normal CTA carotid arteries. No thrombus or aneurysm. 2. There is thrombus in the basilar artery Elder Islas MD Head CT 08/06/16 Signed Impressions: Service Date/Time: Saturday, August 06, 2016 20:21 - CONCLUSION: Minimal high density in the basilar artery, otherwise unremarkable CT brain. CTA brain recommended. Elder Islas MD Assessment and Plan Problem List: (1) Thrombotic stroke involving basilar artery (2) Hx of pulmonary embolus (3) Hx of deep venous thrombosis (4) Bradycardia Assessment and Plan Mild sinus tong, remains asymptomatic. Continue tx for basilar artery thrombosis with warfarin and asa. Stable from cardiac standpoint. Counseled again to quit smoking. Perry Sandoval MD Aug 15, 2016 09:51
[2016-08-15 12:00] VITALS: BP 121/81; PULSE 70; RESP 20; TEMP 96.4; O2SAT 97
[2016-08-15] MEDS ORDERED: WARFARIN SOD 5 MG TAB PO ONE ×2 (13:30→13:40)
[2016-08-15] MEDS ORDERED: WARFARIN SOD 5 MG TAB PO SCH (16:00)
--- NOTE | 2016-08-15 22:59 | HHI.DS ---
Discharge Summary Admission Date Aug 06, 2016 at 22:24 Discharge Date: Aug 15, 2016 Admitting Diagnosis Basilar artery Thrombus with ischemic stroke (1) Thrombotic stroke involving basilar artery ICD Code: I63.02 Diagnosis: Principal (2) Hx of deep venous thrombosis ICD Code: Z86.718 (3) Hx of pulmonary embolus ICD Code: Z86.711 Procedures Echo 08/07/2016 - Left ventricle: The cavity size was normal. Wall thickness was normal. Systolic function was normal. The estimated ejection fraction was in the range of 55% to 60%. Wall motion was normal; there were no regional wall motion abnormalities. - Aortic valve: Valve area: 1.88cm^2(VTI). Valve area: 1.77cm^2 (Vmax). Brief History - From Admission 36 yo WM who presents to [facility] ED with acute ischemic stroke. 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 Patient states he got up at around 14:30 on 08/06 to go to the bathroom and he fell and could not get up. He began texting his while she was at work and the texts were unusual. . So she called [facility] and they went to his home and he had slurred speech and reportedly refused transport. He then communicated to his "something is wrong, I need help". She arrived at his home and he was on the ground with L facial droop and L hemiparesis. [facility] was summoned again and he was taken to [facility] where he was found to be drowsy but able to follow commands. He had nystagmus and L hemiplegia. He complained of right sided headache. CT brain demonstrated basilar artery hyperdensity. CTA demonstrated thrombus within the distal basilar artery. Dr. Potter in ED discussed with Dr. Soria on several occasions. Patient was felt to not be a candidate for systemic thrombolytic due to onset of symptoms. Case was discussed with Dr. Mccoy with interventional radiology who deferred intervention as patient was felt to have collateral flow and there was concern for intervention resulting in distal showering of thrombus that might compromise this collateral circulation. MRI was also obtained which demonstrated restricted diffusion in the brainstem, greater on the right consistent with acute infarction. Dr. Soria and Dr. Mccoy agreed with initiation of heparin drip per ischemic stroke protocol which has been initiated. Patients indicates his neuro exam appears to be improving since arrival, i.e he is able to move his L arm and L leg some. His BP is 91/51 with heart rate sinus arrhythmia in 40s. I am placing CVL and initiating Levophed to target SBP 165-[address] Soria. Patient has had no witnessed seizure activity. Patient h/o unprovoked PE in 01/2016 and underwent hypercoagulable workup at that time that was negative (APL ab, Factor V Leiden, Mixing study, Protein C/S , Antithrombin III, JAK2, prothrombin gene mutation). He was on Xarelto for several months afterwards but did not quite complete full 6 months of recommended anticoagulant therapy. His mother indicated he may have h/o septal defect but it is unclear when this was diagnosed. TTE at this facility did not suggest and he has not had RIGOBERTO at this facility. He was hospitalized in ICU in [facility] 2 years ago for respiratory symptoms. CBC/BMP: 08/14/16 0522 08/14/16 0522 Significant Findings Laboratory Tests Test 08/13/16 08/14/16 08/15/16 04:42 05:22 06:09 White Blood Count 15.0 TH/MM3 16.3 TH/MM3 (4.0-11.0) (4.0-11.0) Hemoglobin 12.9 GM/DL (13.0-17.0) Hematocrit 38.7 % (39.0-51.0) Haptoglobin 201 MG/DL (30-200) Prothrombin Time 19.0 SEC 14.9 SEC 20.5 SEC (9.8-11.6) (9.8-11.6) (9.8-11.6) Chloride Level 110 MEQ/L (98-107) Random Glucose 121 MG/DL 119 MG/DL (74-106) (74-106) Imaging Last Impressions Chest CT 08/12/16 0000 Signed Impressions: Service Date/Time: Friday, August 12, 2016 17:58 - CONCLUSION: 1. Negative for metastatic disease. No acute findings. Ayo Butler MD Abdomen/Pelvis CT 08/12/16 0000 Signed Impressions: Service Date/Time: Friday, August 12, 2016 17:58 - CONCLUSION: Normal examination. Ayo Butler MD Chest X-Ray 08/07/16 0000 Signed Impressions: Service Date/Time: Sunday, August 07, 2016 00:52 - CONCLUSION: Right jugular line placement. Frederic Kaplan MD Brain MRI 08/06/162117 Signed Impressions: Service Date/Time: Saturday, August 06, 2016 21:47 - CONCLUSION: 1. There is some very subtle restricted diffusion in the brainstem greater on the right consistent with acute infarction. 2. Otherwise unremarkable MRI of the brain. Elder Islas MD Head CTA 08/06/162020 Signed Impressions: Service Date/Time: Saturday, August 06, 2016 20:21 - CONCLUSION: 1. Small thrombus within the distal basilar artery measuring 7 x 4 mm. 2. Otherwise unremarkable CTA brain. Dr Potter notified of these findings at 8: 57pm. Elder Islas MD Neck CTA 08/06/16 0000 Signed Impressions: Service Date/Time: Saturday, August 06, 2016 20:21 - CONCLUSION: 1. Normal CTA carotid arteries. No thrombus or aneurysm. 2. There is thrombus in the basilar artery Elder Islas MD Head CT 08/06/16 0000 Signed Impressions: Service Date/Time: Saturday, August 06, 2016 20:21 - CONCLUSION: Minimal high density in the basilar artery, otherwise unremarkable CT brain. CTA brain recommended. Elder Islas MD PE at Discharge GENERAL: Alert, oriented x 3. Speech somewhat slurred but improved per family. SKIN: Warm and dry. HEAD: Normocephalic. EYES: No scleral icterus. No injection or drainage. Left nerve palsy. Pupils equal and reactive to light. NECK: Supple, trachea midline. No JVD or lymphadenopathy. CARDIOVASCULAR: Regular rate and rhythm without murmurs, gallops, or rubs. RESPIRATORY: Breath sounds equal bilaterally. No accessory muscle use. GASTROINTESTINAL: Abdomen soft, non-tender, nondistended. MUSCULOSKELETAL: No cyanosis, or edema. BACK: Nontender without obvious deformity. No CVA tenderness. Pt update on day of discharge Patient is doing well. INR 1.8 today and patient wants to go home badly. His mother is an ICU nurse and girlfriend is an RN as well. He will follow up with [facility] upon discharge. Hospital Course Mr. 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 Neurology and interventional radiology were contacted who recommended against any invasive intervention including TPA. Patient was managed in the ICU and was transferred to the hospitalist service on 08/12/2016. - Thrombotic stroke involving basilar artery - Hematology, Neurology following. - Continue Warfarin. INR 1.8 on 08/15/2016. - Patient received Lovenox 80mg prior to discharge and he was advised to take 5mg of Warfarin on 08/15/2016. INR on 08/16/2016. - History of unprovoked DVT and later PE - Continue Warfarin lifelong. - Substance abuse - On 08/13/2016, discussed with patient regarding importance of not abusing any drugs. - Headache - Tylenol Update: Patient's girlfriend contacted me to inform me about his INR 1.7 on 08/16/2016. I called his pharmacy to provide Lovenox 80mg Q12hrs and continue Warfarin 5mg on 08/16/2016 and 08/17/2016. INR will be checked again at the [facility] on 08/18/2016. IF INR comes up above 2.0, Lovenox can be discontinued. I called in Lovenox, Warfarin 1mg PRN (to be used in addition to 4mg if needed), and Zofran ODT. Pt Condition on Discharge: Good Discharge Disposition: Disch w/ Home Health Serv Discharge Time: > 30 minutes Discharge Instructions DIET: Follow Instructions for: Heart Healthy Diet Speech Therapy-Diet Recommends: Honey Thickened Liquids, Mechanical Soft Activities you can perform: Regular-No Restrictions Follow up Referrals: Neurology - 2 Weeks with Mariana Soria MD Oncology - 2 Weeks with Cholo Bolanos MD PCP Follow-up - 3-5 Days New Orders: PT/INR - Next Day New Medications: Aspirin DR (Aspirin EC) 81 Mg Tabdr 81 MG PO DAILY Blood Clot Prevention #90 Ref 0 TAB Quetiapine (Seroquel) 25 Mg Tab 25 MG PO HS Insomnia #30 Ref 0 TAB Warfarin (Warfarin) 4 Mg Tab 4 MG PO DAILY Blood Clot Prevention #30 Ref 0 TAB Francois Shaw DO Aug 15, 2016 22:59
== END 2016-08-15 14:06 | disposition home health service (06) | DRG 65 ==
LOC: NEPE 20:12 → NEDA 22:24 → N03A 08-07 02:26 → HIMW 08-10 17:20 → N05A 08-12 12:30 → UNDODISIN 08-14 16:30
PROVIDERS: ADMIT Hospitalist; ATTEND Hospitalist
PROC: 03HY32Z Insertion of Monitoring Device into Upper Artery, Percutaneous Approach (ICD-10-PCS; principal; 2016-08-07)
PROC: 02HV33Z Insertion of Infusion Device into Superior Vena Cava, Percutaneous Approach (ICD-10-PCS; 2016-08-07)
PROC: B543ZZA Ultrasonography of Right Jugular Veins, Guidance (ICD-10-PCS; 2016-08-07)
DX: I63.02 Cerebral infarction due to thrombosis of basilar artery (principal); G81.94 Hemiplegia, unspecified affecting left nondominant side; E83.39 Other disorders of phosphorus metabolism; F11.23 Opioid dependence with withdrawal; B35.6 Tinea cruris; R00.1 Bradycardia, unspecified; F17.200 Nicotine dependence, unspecified, uncomplicated; B37.9 Candidiasis, unspecified; R29.810 Facial weakness; H55.00 Unspecified nystagmus; R33.9 Retention of urine, unspecified; I45.10 Unspecified right bundle-branch block; R47.1 Dysarthria and anarthria; F43.20 Adjustment disorder, unspecified; Z82.49 Family history of ischemic heart disease and other diseases of the circulatory system; Z86.711 Personal history of pulmonary embolism; Z86.718 Personal history of other venous thrombosis and embolism; Z88.0 Allergy status to penicillin; Z88.5 Allergy status to narcotic agent
CPT/HCPCS: 36556; 70450; 70496; 70498; 70551; 71010; 71260; 74177; 76937; 80048; 80053; 80061; 80307; 81001; 82435; 82550; 82565; 82947; 83010; 83036; 83090; 83615; 83735; 84100; 84132; 84295; 84484; 84520; 85025; 85027; 85044; 85240; 85300; 85384; 85610; 85730; 86850; 86900; 86901; 87641; 93005; 93306; 96360; C9113; J0131; J1100; J1644; J1650; J3010; J3480; J7030; J7050; J8540; P9612; Q9967

== ENCOUNTER 2016-09-04 11:22 | Emergency (ER) | payer OTHER ==
[~2016-09-04] VITALS: Ht 185.4 cm; Wt 82.0 kg
[~2016-09-04 11:22] MED LIST changes: -ACETAMIN-HYDROcod 325-5 MG PO; +ASPI81TA11 PO; -RIVA15 PO; -RIVA20 PO; +SERO25TA PO; +WARF-20 PO
[2016-09-04 11:24] VITALS: BP 133/92; PULSE 104; RESP 16; TEMP 99.1; O2SAT 98
[2016-09-04] MEDS ORDERED: COUM7.5T PO (11:41)
[2016-09-04] MEDS ORDERED: COUM10TA PO (11:41)
[2016-09-04] MEDS ORDERED: CLIN1CAP5 PO (11:44)
--- NOTE | 2016-09-04 11:46 | PD ---
HPI Chief Complaint: Oral / Dental Pain or Problem Time Seen by Provider: 11:43 Travel History International Travel<30 days: No Contact w/Intl Traveler<30days: No Traveled to known affect area: No History of Present Illness HPI 36-year-old male presents to the emergency Department with complaint of left upper dental pain for the past few days. He is a patient at the [facility] and they called to make an appointment with the dentist and they could not see him for 4- 5 months. He denies facial erythema, edema. Denies fever, chills. Has not taken any medications or tried any treatments to alleviate his symptoms. Allergies to codeine and penicillin. Has no other medical complaints. No other modifying factors or associated signs and symptoms. PFSH Past Medical History Hx Anticoagulant Therapy: Yes (XARELTO 15 MG PO BID @ 01/21/16 0900) Cancer: No Cardiovascular Problems: Yes (DVT) Cerebrovascular Accident: Yes Diminished Hearing: No Deep Vein Thrombosis: Yes Endocrine: No Genitourinary: No Immune Disorder: No Musculoskeletal: No Neurologic: No Reproductive: No Respiratory: Yes Pneumonia: Yes Past Surgical History Abdominal Surgery: No Cardiac Surgery: No Ear Surgery: No Endocrine Surgery: No Eye Surgery: No Genitourinary Surgery: No Gynecologic Surgery: No Joint Replacement: Yes (RIGHT HIP SURGERY) Thoracic Surgery: No Other Surgery: Yes (HIP SX, LUNG BIOPSY) Social History Alcohol Use: Yes (occasional) Tobacco Use: Yes (1/2 PPD) Substance Use: Yes (WEED) Allergies-Medications (Allergen,Severity, Reaction): Coded Allergies: Codeine (Verified Allergy, Intermediate, RASH, 09/04/16) Penicillin (Verified Allergy, Intermediate, RASH, 09/04/16) Reported Meds & Prescriptions Reported Meds & Active Scripts Active Clindamycin (Clindamycin HCl) 150 Mg Cap 450 Mg PO Q6H 10 Days Seroquel (Quetiapine Fumarate) 25 Mg Tab 25 Mg PO HS Aspirin EC (Aspirin) 81 Mg Tabdr 81 Mg PO DAILY Reported Coumadin (Warfarin) 7.5 Mg Tab 7.5 Mg PO DIRECTED Coumadin (Warfarin) 10 Mg Tab 10 Mg PO DIRECTED Review of Systems Except as stated in HPI: all other systems reviewed are Neg Physical Exam Narrative GENERAL: Well-nourished, well-developed male patient, in no acute distress; afebrile, nontoxic-appearing SKIN: Warm and dry. HEAD: Atraumatic. Normocephalic. No facial edema, erythema, tenderness on palpation. No lymphadenopathy. EYES: Pupils equal and round. No scleral icterus. No injection or drainage. ENT: Mucosa pink and moist. Airway patent. MOUTH: Mucous membranes moist, no lesions, tongue and gums appear normal. Left upper dentalgia with poor dentition and multiple dental caries and decay; left upper tooth #11 with tenderness on palpation. Surrounding gingiva is without erythema, edema, drainage. No obvious abscess noted. NECK: Trachea midline. No lymphadenopathy. CARDIOVASCULAR: Regular rate. RESPIRATORY: No accessory muscle use. GASTROINTESTINAL: Flat. MUSCULOSKELETAL: No obvious deformities. No clubbing. No cyanosis. No edema. NEUROLOGICAL: Awake and alert. Oriented 3. No obvious cranial nerve deficits. Motor grossly within normal limits. Normal speech. PSYCHIATRIC: Appropriate mood and affect; insight and judgment normal. Data Data Last Documented VS Vital Signs Date Time Temp Pulse Resp B/P Pulse Ox O2 Delivery O2 Flow Rate FiO2 09/04/16 11:24 99.1 104 16 133/92 98 Room Air MDM Medical Decision Making Medical Screen Exam Complete: Yes Emergency Medical Condition: Yes Medical Record Reviewed: Yes Differential Diagnosis Dentalgia, dental abscess, infected dental caries Narrative Course 36-year-old male with left upper dentalgia. No obvious abscesses noted. No facial edema or erythema. Patient is afebrile and nontoxic-appearing. He denies fever, vomiting. Clindamycin prescribed for home. Instructed patient to follow up with dentist. Patient verbalizes understanding and agreement with treatment plan. Patient is medically cleared and stable for discharge. Discussed reasons to return to the emergency department. Instructed patient to follow up with primary care provider. Patient agrees with treatment plan. The patients vital signs are stable and the patient is stable for outpatient follow- up and treatment. Patient discharged home, stable and in no acute distress. Diagnosis Primary Impression: Dentalgia Referrals: Dentist Primary Care Physician Patient Instructions: Dental Abscess (ED), Dental Caries (ED), General Instructions, Toothache (ED) Departure Forms: Tests/Procedures, Work Release Enter return to work date: Sep 05, 2016 Additional Instructions: Complete full course of antibiotics Tylenol as directed and as needed to reduce pain and inflammation Use Magic mouthwash rinse as directed and as needed to decrease pain Use Peridex as directed for oral hygiene Warm compresses to the affected area Follow-up with dentist Follow-up with primary care provider Return to emergency department immediately with worsening of symptoms Med/Other Pt SpecificInfo: Prescription(s) given Scripts Clindamycin 150 Mg [id number] Mg PO Q6H 10 Days Ref 0 Prov:Sujatha Mayen 09/04/16 Disposition: 01 DISCHARGE HOME Condition: Stable Sujatha Mayen Sep 04, 2016 11:46
== END 2016-09-04 11:56 | disposition home or self-care (01) ==
LOC: NEPK 11:22
DX: K08.89 Other specified disorders of teeth and supporting structures (principal); F17.200 Nicotine dependence, unspecified, uncomplicated; Z79.01 Long term (current) use of anticoagulants; Z86.718 Personal history of other venous thrombosis and embolism; Z86.79 Personal history of other diseases of the circulatory system; Z87.09 Personal history of other diseases of the respiratory system
CPT/HCPCS: 99282

== ENCOUNTER 2017-11-23 16:26 | Observation (INO) ==
--- NOTE | 2017-11-23 16:51 | ED ---
HPI General Chief Complaint: Chest Pain Stated Complaint: Chest Pain Time Seen by Provider: 11/23/17 16:37 Source: patient Mode of arrival: ambulatory Limitations: no limitations History of Present Illness HPI narrative: 37-year-old male presents to the emergency department for evaluation of bilateral anterior chest pain that started proximal a 45 minutes prior to arrival. He states it was a squeezing and aching kind of pain, however , started as a pressure. He states the pain has decreased spontaneously. Currently rates the pain is 5/10, without radiation. He denies associated shortness of breath. No fevers or chills. No abdominal pain. No nausea, vomiting, diarrhea. Patient does say he has history of bradycardia. Patient also reports history of CVA and PE. He is currently on Coumadin. He is unsure of his current INR. No other symptoms or complaints. Moderate severity peer MD complaint: chest pain Complete Quality Measures for STEMI Alert Patients STEMI Alert: No Onset (ago): minute(s) (45) Duration: constant and improved Onset: during rest Pain location: left chest and right chest Severity: moderate Severity scale (1-10): 5 Quality: heaviness Pain radiation: none Relieving factors: nothing Exacerbating factors: nothing Context: history of DVT/PE Treatments prior to arrival chest pain: none Related Data Home Medications Medication Instructions Recorded Confirmed warfarin [Coumadin] 10 mg PO DAILY 11/23/17 11/23/17 Allergies Allergy/AdvReac Type Severity Reaction Status Date / Time codeine Allergy Intermediate RASH Verified 11/23/17 16:47 penicillin G Allergy Intermediate RASH Verified 11/23/17 16:48 Review of Systems ROS Unobtainable All other systems reviewed negative except as stated in HPI PMFSH History History Provided By: Patient Medical History Medical History CVA (cerebral vascular accident) (Acute) DVT (deep venous thrombosis) (Acute) Pulmonary embolism (Acute) Surgical History Surgical History History of hip surgery (Acute) Social History Social History Substance History: No History of Abuse Second Hand Smoke Exposure: No Smoking Status: Heavy tobacco smoker Tobacco Type: Cigarettes How Often Do You Have a Drink Containing Alcohol: Never Recent Travel in [facility] within the Last 8 Weeks: No Recent Out of Country Travel within the Last 8 Weeks: No Exam Narrative Exam Narrative: GENERAL: Well-nourished, well-developed male patient, afebrile SKIN: Focused skin assessment warm/dry. HEAD: Normocephalic. Atraumatic EYES: No scleral icterus. No injection or drainage. NECK: Supple, trachea midline. No JVD or lymphadenopathy. CARDIOVASCULAR: Regular rate and rhythm without murmurs, gallops, or rubs. Bilateral radial and pedal pulses are 2+ RESPIRATORY: Breath sounds equal bilaterally. No accessory muscle use. Lung sounds are clear to auscultation GASTROINTESTINAL: Abdomen soft, non-tender, nondistended. MUSCULOSKELETAL: No cyanosis, or edema. BACK: No obvious deformity. Course Initial Documented Vital Signs Temperature 98.0 F 11/23/17 16:43 Pulse Rate 45 L 11/23/17 16:43 Respiratory Rate 16 11/23/17 16:43 Blood Pressure 144/67 H 11/23/17 16:43 Pulse Oximetry 98 11/23/17 16:43 Last Documented Vital Signs Temperature 98.0 F 11/23/17 16:43 Pulse Rate 45 L 11/23/17 18:18 Respiratory Rate 16 11/23/17 18:00 Blood Pressure 108/57 L 11/23/17 18:00 Pulse Oximetry 98 11/23/17 18:00 Medical Decision Making DON Attestation DON supervised visit: Yes Attestation: I, Dr. Solano, have reviewed the advance practice practitioner's documentation and am in agreement, met with the patient face to face, made the diagnosis, and the medical decision making was done by me. *My assessment and Findings: Patient seen and examined by me in addition to Teresa MILLER, I agree that while the patient is young he is a smoker, has a history of pulmonary embolism but his INR is therapeutic, I do not think that a CT PE protocol would benefit him at this time. Given his history of ischemic strokes I think he would strongly benefit from a chest pain observation to rule out coronary artery disease a cause of his chest pain MDM Narrative Medical decision making narrative: 37-year-old male presents to the emergency department for evaluation of bilateral anterior chest pain. Patient does have history of PE, CVA, DVT. EKG shows sinus bradycardia with arrhythmia, no acute ST changes, heart rate 53. IV access obtained. CBC, BMP, magnesium, CK, troponin, PTT, PT/INR. Chest x-ray is ordered and pending. If INR is not therapeutic, CT pulmonary angiogram will be added on. CBC is unremarkable. BMP is unremarkable. Magnesium is 2.0. CK is 99. Troponin is less than 0.02. PTT is 32.3. PT/INR is 20.5/2.0. Chest x-ray shows no acute cardiopulmonary disease. Patient will be admitted the chest pain center for further evaluation by cardiology. Lab Data Result diagrams: 11/23/17 17:00 11/23/17 17:00 Lab Results 11/23/17 11/23/17 11/23/17 Range/Units 17:00 17:00 17:00 WBC 10.1 (4.0-11.0) th/mm3 RBC 5.03 (4.50-5.90) mil/mm3 Hgb 14.2 (13.0-17.0) gm/dL Hct 42.6 (39.0-51.0) % MCV 84.8 (80.0-100.0) fL MCH 28.4 (27.0-34.0) pg MCHC 33.4 (32.0-36.0) % RDW 13.3 (11.6-17.2) % Plt Count 233 (150-450) th/mm3 MPV 8.5 (7.0-11.0) fL Neut % (Auto) 56.4 (16.0-70.0) % Lymph % (Auto) 33.9 (9.0-44.0) % [place] % (Auto) 6.6 (0.0-8.0) % Eos % (Auto) 2.3 (0.0-4.0) % Baso % (Auto) 0.8 (0.0-2.0) % Neut # (Auto) 5.7 (1.8-7.7) th/mm3 Lymph # (Auto) 3.4 (1.0-4.8) th/mm3 [place] # (Auto) 0.7 (0.0-0.9) th/mm3 Eos # (Auto) 0.2 (0.0-0.4) th/mm3 Baso # (Auto) 0.1 (0.0-0.2) th/mm3 WBC Differential . Differential Comment Auto diff final PT 20.5 H (9.8-11.6) sec INR 2.0 Ratio APTT 32.3 H (24.3-30.1) sec Sodium 142 (136-145) meq/L Potassium 3.7 (3.5-5.1) meq/L Chloride 107 (98-107) meq/L Carbon Dioxide 27.5 (21.0-32.0) meq/L Anion Gap 8 (5-15) meq/L BUN 10 (7-18) mg/dL Creatinine 0.83 (0.60-1.30) mg/dL Estimated GFR Greater than 89 (>89) mL/min Random Glucose 76 (74-106) mg/dL Calcium 8.7 (8.5-10.1) mg/dL Magnesium 2.0 (1.5-2.5) mg/dL Total Creatine Kinase 99 (39-308) U/L Troponin I Less than 0.02 L (0.02-0.05) ng/mL Imaging Data Radiologist's impression: ITS Impressions Chest X-Ray 11/23/17 16:49 CONCLUSION: 1. No acute cardiopulmonary disease. Discharge Plan Discharge Disposition Patient Disposition: 30 Still Patient Discharge Details Discharge Problem: Chest pain Physicians Team ED Provider: Mio Solano ED Midlevel Provider: Teresa Pena Primary Care Provider: [facility],Physician 's Rxs /Orders / Referrals /Forms Prescriptions: No Action warfarin [Coumadin] 10 mg Tablet 10 mg PO DAILY RF: 0 Discharge Instructions Patient Printed Instructions: Chest Pain (ED) Discharge Interventions Interventions: Vital Signs Last Done: 11/23/17 18:00 Status ED Status: With Doctor
--- NOTE | 2017-11-23 17:20 | XR ---
EXAM DATE: 11/23/2017 5:16 PM EDT AGE/SEX: 37 years / Male INDICATIONS: Mid chest pain. CLINICAL DATA: This is the patient's initial encounter. Patient reports that signs and symptoms have been present for 1 day and indicates a pain score of 5/10. MEDICAL/SURGICAL HISTORY: None. None. COMPARISON: [facility] [place], CHEST SINGLE AP, 08/07/2016. . FINDINGS: A single AP view of the chest demonstrates the lungs to be symmetrically aerated without evidence of mass, infiltrate or effusion. The cardiomediastinal contours are unremarkable. Osseous structures a re intact. CONCLUSION: 1. No acute cardiopulmonary disease. Electronically signed by: Landry Juarez MD 11/23/2017 5:19 PM EDT
[2017-11-23 17:34] LABS: Baso # (Auto) 0.1 th/mm3 (0.0-0.2); Baso % (Auto) 0.8 % (0.0-2.0); Eos # (Auto) 0.2 th/mm3 (0.0-0.4); Eos % (Auto) 2.3 % (0.0-4.0); Hematocrit 42.6 % (39.0-51.0); Hemoglobin 14.2 gm/dL (13.0-17.0); Lymph # (Auto) 3.4 th/mm3 (1.0-4.8); Lymph % (Auto) 33.9 % (9.0-44.0); Mean Corpuscular HGB Conc 33.4 % (32.0-36.0); Mean Corpuscular Hemoglobin 28.4 pg (27.0-34.0); Mean Corpuscular Volume 84.8 fL (80.0-100.0); Mean Platelet Volume 8.5 fL (7.0-11.0); Mono # (Auto) 0.7 th/mm3 (0.0-0.9); Mono % (Auto) 6.6 % (0.0-8.0); Neut # (Auto) 5.7 th/mm3 (1.8-7.7); Neut % (Auto) 56.4 % (16.0-70.0); Platelet Count 233 th/mm3 (150-450); Red Blood Count 5.03 mil/mm3 (4.50-5.90); Red Cell Distribution Width 13.3 % (11.6-17.2); White Blood Count 10.1 th/mm3 (4.0-11.0)
[2017-11-23 17:43] LABS: Activated Partial Thrombo Time 32.3 sec (24.3-30.1); Prothrombin Time 20.5 sec (9.8-11.6)
[2017-11-23 17:54] LABS: Anion Gap 8 meq/L (5-15); Blood Urea Nitrogen 10 mg/dL (7-18); Calcium 8.7 mg/dL (8.5-10.1); Carbon Dioxide 27.5 meq/L (21.0-32.0); Chloride 107 meq/L (98-107); Glomerular Filtration Rate Greater Than 89 mL/min (>89); Glucose,Random 76 mg/dL (74-106); Potassium 3.7 meq/L (3.5-5.1); Sodium 142 meq/L (136-145)
[2017-11-23 18:03] LABS: Creatine Kinase 99 U/L (39-308)
[2017-11-23 21:39] LABS: Creatine Kinase 83 U/L (39-308)
[2017-11-23 23:47] LABS: Creatine Kinase 80 U/L (39-308)
--- NOTE | 2017-11-24 08:45 | P.HPCA ---
History of Present Illness Primary Care Physician: Physician 's [facility] Chief Complaint: Chest pain History of Present Illness: This is a 37-year-old male with history of CVA 2017, left lower extremity DVT and right lung pulmonary embolus in 2016 on Coumadin therapy, and tobacco abuse that presents to ED with complaint of chest discomfort. Patient states that he [place] community [place] when he developed a throbbing central chest discomfort. He came in 45 second waves for about 45 minutes. He was short of breath and diaphoretic. No nausea. Discomfort did not radiate. Found nothing to improve or worsen the symptoms. Has not really had this in the past. Cannot recall having a prior cardiac workup including stress testing or heart catheterization. States that he has a chronic low heart rate. Voices compliance with his warfarin, states he takes 10 mg daily in the afternoon and his [facility]. States that when he had his stroke that affected his left side and he has very mild residual left-sided weakness but he also has issues with imbalance while walking. Denies inspirational chest discomfort. Denies any swelling in his legs. States his symptoms do not feel similar to when he was diagnosed with pulmonary embolus. There is family history of CAD. Hip surgery. States that his father had CAD onset in his 30s and had stents. She continues to smoke three-quarter pack of cigarettes daily for about 10 years. Rarely has alcohol. Denies illicit drug use. Lives with his girlfriend. - Diagnosis (1) Chest pain (2) History of DVT (deep vein thrombosis) (3) History of pulmonary embolus (PE) (4) History of CVA (cerebrovascular accident) (5) Tobacco abuse Inpatient Certification: I certify that the inpatient services were ordered in accordance with Medicare regulations governing the order. This includes certification that hospital inpatient services are reasonable and necessary and in the case of services not specified as inpatient-only under 42 CFR 419.22(n), that they are appropriately provided as inpatient services in accordance to with the 2-midnight benchmark under 43 CFR 412.3(e) Review of Systems General: Patient denies fevers, chills, and recent travel. HEENT: Patient denies headache, sore throat, difficulty swallowing. Cardiovascular: Has the chest discomfort as mentioned above. Denies sensation of heart beating rapidly or irregularly. No syncope. Mild diaphoresis. Respiratory: He was short of breath. Denies inspirational chest discomfort. Denies coughing wheezing or hemoptysis. GI: Patient denies nausea, vomiting, diarrhea, abdominal pain, bloody stools. Musculoskeletal: Patient denies joint pain or edema. Denies calf pain or edema. Neurovascular: States he has a residual left-sided weakness but states is very minimal. Also complains of having intermittent imbalance while ambulating. Patient denies numbness tingling in extremities. Denies headache. Endocrine: Denies polyuria and polydipsia. Hematologic: Denies easy bruising. Skin: Denies rash or itching. PMFSH - History History Provided By: Patient - Medical History Medical History: Medical History (Last Reviewed 11/23/17 @ 17:13 by ANGELA Mccray) CVA (cerebral vascular accident) DVT (deep venous thrombosis) Pulmonary embolism - Surgical History Surgical History: Surgical History (Last Reviewed 11/23/17 @ 17:13 by ANGELA Mccray) History of hip surgery - Tobacco History Second Hand Smoke Exposure: Yes Tobacco Use In Past 30 Days: Yes Smoking Status: Current every day smoker Tobacco Type: Cigarettes - Alcohol History How Often Do You Have a Drink Containing Alcohol: Monthly or less - Substance Use History Substance History: No History of Abuse - Travel History Recent Travel in the [place] Within the Last 8 Weeks: No Recent Travel Out of the Country Within the Last 8 Weeks: No - Immunization History Tetanus Immunization: Unsure Hx Influenza Vaccine This Season: Yes Medications and Allergies Active Medications: Active Medications Sodium Chloride (Ns Flush) 2 ml IV.FLUSH UNSCH PRN PRN Reason: FLUSH AFTER USING IV ACCESS Sodium Chloride (Ns Flush) 2 ml IV.FLUSH BID DARRION Sodium Chloride (Ns Flush) 2 ml IV.FLUSH PRN PRN PRN Reason: FLUSH AFTER USING IV ACCESS Allergies Allergy/AdvReac Type Severity Reaction Status Date / Time codeine Allergy Intermediate RASH Verified 11/23/17 16:47 penicillin G Allergy Intermediate RASH Verified 11/23/17 16:48 Home Medications Medication Instructions Recorded Confirmed Type warfarin [Coumadin] 10 mg PO DAILY 11/23/17 11/23/17 History Exam Vital signs: Vital Signs 11/23/17 16:43 11/23/17 17:00 11/23/17 18:00 Temperature 98.0 F Pulse Rate 45 L 56 L 62 Respiratory Rate 16 21 16 Blood Pressure 144/67 H 120/68 108/57 L Pulse Oximetry 98 97 98 11/23/17 18:18 11/23/17 20:00 11/23/17 20:45 Temperature 98.8 F Pulse Rate 45 L 54 L 49 L Respiratory Rate 16 Blood Pressure 117/63 Pulse Oximetry 95 11/23/17 23:13 11/24/17 00:00 11/24/17 02:41 Temperature 98.5 F Pulse Rate 53 L 51 L Respiratory Rate 16 Blood Pressure 112/56 L Pulse Oximetry 95 98 11/24/17 03:10 Temperature 98.5 F Pulse Rate 48 L Respiratory Rate 16 Blood Pressure 108/54 L Pulse Oximetry 95 Intake & Output 11/23/17 11/24/17 11/24/17 18:59 06:59 18:59 Weight 79.379 kg Other: Date of Last Bowel Movement 11/23/17 Narrative: GENERAL: This is a well-nourished, well-developed patient, in no apparent distress. Patient speaks in clear complete sentences. Patient is pleasant. HEENT: Head is atraumatic and normocephalic. Neck is supple without lymphadenopathy and trachea is midline. No JVD or carotid bruits. CARDIOVASCULAR: Regular rate and rhythm without murmurs, gallops, or rubs. RESPIRATORY: Clear to auscultation. Breath sounds equal bilaterally. No wheezes , rales, or rhonchi. Chest wall is nontender. No use of accessory muscles. GASTROINTESTINAL: Abdomen is nontender, nondistended. Abdomen soft. No obvious pulsatile mass or bruit. No CVA tenderness. Strong femoral pulses bilaterally. Normal bowel sounds in all quadrants. MUSCULOSKELETAL: Patient is moving upper and lower extremities freely. No calf tenderness or edema, no Homans sign. Strong pulses in upper and lower extremities. NEUROLOGICAL: Patient is alert and oriented. Cranial nerves 2-12 are grossly intact. No focal deficits and speech is clear. SKIN: No rash and turgor is normal. Results 11/23/17 17:00 11/23/17 17:00 Cardiac Enzymes 11/23/17 11/23/17 11/23/17 Range/Units 17:00 20:03 23:02 Troponin I Less than 0.02 L Less than 0.02 L Less than 0.02 L (0.02-0.05) ng/mL Coagulation 11/23/17 Range/Units 17:00 PT 20.5 H (9.8-11.6) sec APTT 32.3 H (24.3-30.1) sec CBC 11/23/17 Range/Units 17:00 WBC 10.1 (4.0-11.0) th/mm3 RBC 5.03 (4.50-5.90) mil/mm3 Hgb 14.2 (13.0-17.0) gm/dL Hct 42.6 (39.0-51.0) % Plt Count 233 (150-450) th/mm3 Neut # (Auto) 5.7 (1.8-7.7) th/mm3 Lymph # (Auto) 3.4 (1.0-4.8) th/mm3 [place] # (Auto) 0.7 (0.0-0.9) th/mm3 Eos # (Auto) 0.2 (0.0-0.4) th/mm3 Baso # (Auto) 0.1 (0.0-0.2) th/mm3 Comprehensive Metabolic Panel 11/23/17 Range/Units 17:00 Sodium 142 (136-145) meq/L Potassium 3.7 (3.5-5.1) meq/L Chloride 107 (98-107) meq/L Carbon Dioxide 27.5 (21.0-32.0) meq/L BUN 10 (7-18) mg/dL Creatinine 0.83 (0.60-1.30) mg/dL Calcium 8.7 (8.5-10.1) mg/dL Intake and Output 11/23/17 11/24/17 11/24/17 22:59 06:59 14:59 Other: Date of Last Bowel Movement 11/23/17 Weight 79.379 kg EKG interpretations - EKG EKG shows: bradycardia (2 EKGs reveal sinus bradycardia sinus arrhythmia without significant ST segment depressions or elevations.) Caprini VTE Risk Assessment Caprini VTE Risk Assessment: Moderate/High Risk (score >= 2) Caprini Risk Assessment Model: Point Value = 1 Point Value = 2 Point Value = 3 Point Value = 5 Age 41-60 Minor surgery BMI > 25 kg/m2 Swollen legs Varicose veins or History of unexplained or recurrent spontaneous Oral contraceptives or hormone replacement Sepsis (< 1 month) Serious lung disease, including pneumonia (< 1 month) Abnormal pulmonary function Acute myocardial infarction Congestive heart failure (< 1 month) History of inflammatory bowel disease Medical patient at bed rest Age 61-74 Arthroscopic surgery Major open surgery (> 45 min) Laparoscopic surgery (> 45 min) Malignancy Confined to bed (> 72 hours) Immobilizing plaster cast Central venous access Age >= 75 History of VTE Family history of VTE Factor V Leiden Prothrombin [id number] Lupus anticoagulant Anticardiolipin antibodies Elevated serum homocysteine Heparin-induced thrombocytopenia Other congenital or acquired thrombophilia Stroke (< 1 month) Elective arthroplasty Hip, pelvis, or leg fracture Acute spinal cord injury (< 1 month) Prophylaxis Regimen: Total Risk Factor Score Risk Level Prophylaxis Regimen 0-1 Low Early ambulation 2 Moderate Order ONE of the following: *Sequential Compression Device (SCD) *Heparin 5000 units SQ BID 3-4 Higher Order ONE of the following medications: *Heparin 5000 units SQ TID *Enoxaparin/Lovenox 40 mg SQ daily (WT < 150 kg, CrCl > 30 mL/min) *Enoxaparin/Lovenox 30 mg SQ daily (WT < 150 kg, CrCl > 10-29 mL/min) *Enoxaparin/Lovenox 30 mg SQ BID (WT < 150 kg, CrCl > 30 mL/min) AND/OR *Sequential Compression Device (SCD) 5 or more Highest Order ONE of the following medications: *Heparin 5000 units SQ TID (Preferred with Epidurals) *Enoxaparin/Lovenox 40 mg SQ daily (WT < 150 kg, CrCl > 30 mL/min) *Enoxaparin/Lovenox 30 mg SQ daily (WT < 150 kg, CrCl > 10-29 mL/min) *Enoxaparin/Lovenox 30 mg SQ BID (WT < 150 kg, CrCl > 30 mL/min) AND *Sequential Compression Device (SCD) Assessment and Plan - Assessment (1) Chest pain Code(s): R07.9 - Chest pain, unspecified Status: Acute (2) History of DVT (deep vein thrombosis) Code(s): Z86.718 - Personal history of other venous thrombosis and embolism Status: Acute (3) History of pulmonary embolus (PE) Code(s): Z86.711 - Personal history of pulmonary embolism Status: Acute (4) History of CVA (cerebrovascular accident) Code(s): Z86.73 - Personal history of transient ischemic attack (TIA), and cerebral infarction without residual deficits Status: Acute (5) Tobacco abuse Code(s): Z72.0 - Tobacco use Status: Acute - Plan * Chest pain: Patient has had serial cardiac enzymes and EKGs for ruling out purposes. He will be seen by Dr. Nance of cardiology in the chest pain center. Patient states he does deal with some imbalance issues and subsequently will have a Lexiscan to further evaluate cardiac. Patient would be discharged home if the stress test is nonischemic with instructions to follow -up with PCP. Return to ED for interval issues. * History of CVA: Continues medication. * History of DVT/PE: Continue medication. * Tobacco abuse: Patient has been counseled of the extreme importance of smoking cessation. Patient is stable at this time. He is agreeable to this plan. H&P: Quality - VTE Deep Vein Thrombosis/Pulmonary Embolism Present on Admission: No
--- NOTE | 2017-11-24 09:39 | P.PNCA ---
Subjective Interval history: 37[facility]year-old [facility] patient with a history of documented DVT and pulmonary embolus and subsequent CVA which is largely resolved presents now with complaints of chest pain. He was evaluated by the physician office machine servicer and has already been ruled out by chest pain protocol. I reviewed the documentation the radiographic laboratory and additional information and subsequently saw and examined the patient personally. He is currently stable and has ruled out for ACS using standard chest pain center protocol and is pending evaluation with a nuclear scan. Physical Exam Vital signs: Vital Signs 11/23/17 16:43 11/23/17 17:00 11/23/17 18:00 Temperature 98.0 F Pulse Rate 45 L 56 L 62 Respiratory Rate 16 21 16 Blood Pressure 144/67 H 120/68 108/57 L Pulse Oximetry 98 97 98 11/23/17 18:18 11/23/17 20:00 11/23/17 20:45 Temperature 98.8 F Pulse Rate 45 L 54 L 49 L Respiratory Rate 16 Blood Pressure 117/63 Pulse Oximetry 95 11/23/17 23:13 11/24/17 00:00 11/24/17 02:41 Temperature 98.5 F Pulse Rate 53 L 51 L Respiratory Rate 16 Blood Pressure 112/56 L Pulse Oximetry 95 98 11/24/17 03:10 Temperature 98.5 F Pulse Rate 48 L Respiratory Rate 16 Blood Pressure 108/54 L Pulse Oximetry 95 Intake & Output 11/23/17 11/24/17 11/24/17 18:59 06:59 18:59 Weight 79.379 kg Other: Date of Last Bowel Movement 11/23/17 Narrative: Patient is a well-nourished well-developed male sitting in his bed in no distress. He has multiple tattoos Head normocephalic atraumatic Eyes PERRLA EOMI Neck supple no JVD masses nodes or bruits Chest slightly diminished breath sounds with mild inspiratory wheeze diffusely but no rales or rhonchi Cardiovascular regular sinus rhythm no gallops rubs or murmurs Assessment and Plan - Plan * Chest pain: Patient has had serial cardiac enzymes and EKGs for ruling out purposes. He will be seen by Dr. Nance of cardiology in the chest pain center. Patient states he does deal with some imbalance issues and subsequently will have a Lexiscan to further evaluate cardiac. Patient would be discharged home if the stress test is nonischemic with instructions to follow -up with PCP. Return to ED for interval issues. * History of CVA: Continues medication. * History of DVT/PE: Continue medication. * Tobacco abuse: Patient has been counseled of the extreme importance of smoking cessation. Patient is stable at this time. He is agreeable to this plan. I have reviewed and discussed plan with the physician office machine servicer and the patient and I am in agreement with plan as documented. - Attending Attestation I have reviewed documentation personally seen and examined the patient and am in agreement
--- NOTE | 2017-11-24 12:09 | ECG ---
Date Performed: 11/23/2017 Time Performed: 23:10:53 PTAGE: 37 years EKG: SINUS BRADYCARDIA WITH SINUS ARRHYTHMIA BORDERLINE ECG No significant change PREVIOUS TRACING : 11/23/2017 21.01 DOCTOR: Gregory Nance Interpretating Date/Time 11/24/2017 12:09:00
--- NOTE | 2017-11-24 12:10 | ECG ---
Date Performed: 11/23/2017 Time Performed: 21:01:54 PTAGE: 37 years EKG: SINUS BRADYCARDIA WITH SINUS ARRHYTHMIA BORDERLINE ECG No significant change PREVIOUS TRACING : 11/23/2017 16.34 DOCTOR: Gregory Nance Interpretating Date/Time 11/24/2017 12:09:32
--- NOTE | 2017-11-24 12:11 | ECG ---
Date Performed: 11/23/2017 Time Performed: 16:34:58 PTAGE: 37 years EKG: SINUS BRADYCARDIA WITH MARKED SINUS ARRHYTHMIA BORDERLINE ECG No significant change PREVIOUS TRACING : 08/06/2016 20.35 DOCTOR: Gregory Nance Interpretating Date/Time 11/24/2017 12:10:17
[2017-11-24] MEDS ORDERED: Regadenoson Inj 0.4 MG/5 ML Syringe IV.PUSH ONE (12:12)
--- NOTE | 2017-11-24 13:34 | NM ---
EXAM DATE: 11/24/2017 1:27 PM EDT AGE/SEX: 37 years / Male INDICATIONS:Angina. . Substernal chest pain radiating to left shoulder. CLINICAL DATA: This is the patient's initial encounter. Patient reports that signs and symptoms have been present for 1 day and indicates a pain score of 5/10. MEDICAL/SURGICAL HISTORY: Deep venous thrombosis. Stroke. Pulmonary embolus. . Right hip. COMPARISON: No prior exams available for comparison. DOSE: 8.5 mCi Tc 99m Myoview at rest 25.4 mCi [id number] at stress 0.4 mg Lexiscan STRESS SYMPTOMS: Dyspnea. EJECTION FRACTION: 64 % TECHNIQUE: The patient underwent pharmacologic stress with infusion of prescribed dose. Continuous ECG tracing was monitored during stress. Gated SPECT imaging was performed after stress and conventi onal SPECT imaging was performed at rest. The examination was performed on a SPECT/CT scanner, both attenuation and non-corrected datasets were reviewed. FINDINGS: Distribution: The maximum perfused segment at stress is in the inferior wall. Perfusion Study: No reversible perfusion defects to suggest ischemia. Matched defect inferior wall. Gated Study: There are intact wall motion and wall thickening without hypokinetic or dyskinetic segm ents. The ejection fraction is calculated at 64%. RISK CATEGORY: Low (<1% Annual Motality Rate) CONCLUSION: 1. No reversible perfusion defects to suggest ischemia. 2. Ejection fraction 64%. Electronically signed by: Elder Islas MD 11/24/2017 1:33 PM EDT
--- NOTE | 2017-12-03 17:45 | TR ---
Date Performed: 11/24/2017 Time Performed: 12:28:36 DOCTOR: Gregory Nance DRUG LIST: CLINICAL HISTORY: CHEST PAIN REASON FOR TEST: CHEST PAIN REASON FOR ENDING: OBSERVATION: CONCLUSION: Lexiscan stress test was performed under standard four minute protocol. Radionuclide was injected one minute prior to ending the test. No electrocardiographic abormalities were present to suggest ischemia. Nuclear imaging and interpretation are pending. COMMENTS:
== END 2017-11-24 15:44 | disposition home or self-care (01) ==
LOC: NEPD 16:26 → NEPGCP 16:26 → INTOOBSV 18:47 → NEDA 18:47 → NEPGCP 20:14
PROVIDERS: ADMIT Internal Medicine Cardiovascular Disease; ATTEND Internal Medicine Cardiovascular Disease